=== PATIENT | female | born 1990 | race Caucasian/White ===

== ENCOUNTER 2016-07-09 18:50 | Observation (INO) ==
[2016-07-09] MEDS ORDERED: 0.9 % Sodium Chloride 1,000 ML IVC ONE (21:46)
[2016-07-09] MEDS ORDERED: Ondansetron 4 MG/2 ML VIAL IVP ONE (21:48)
--- NOTE | 2016-07-09 22:14 | Emergency Department Note ---
Disposition Clinical Impression: Dehydration, Hyperemesis arising during Disposition: Admitted As Inpatient Condition: Fair Referrals: NO,PCP [Primary Care Provider] - Forms: ED Satisfaction Letter General Adult HPI - General Chief complaint: ED Nausea/Vomiting/Diarrhea Stated complaint: N/V x 4 days Time Seen by Provider: 07/09/16 21:09 Source: EMS Limitations: no limitations Nursing Notes Reviewed: Yes Vital Signs Reviewed: Yes - History of Present Illness Pain Scale: 0 - Related Data Previous Rx's Medication Instructions Recorded Hydrocortisone Acetate [Anusol-Hc] 25 mg RC BID #28 supp.rect 02/13/15 HYDROcodone/Acet 5/325 mg [[place] 1 tab PO Q6H PRN #10 tab 01/08/16 5-325 mg] Cyclobenzaprine [Flexeril] 10 mg PO TID PRN #9 tablet 03/13/16 Nitrofurantoin (BID) [Macrobid] 100 mg PO BID #10 capsule 05/21/16 Allergies Allergy/AdvReac Type Severity Reaction Status Date / Time No Known Allergies Allergy Verified 01/08/16 11:43 Past Medical History - Past Medical History Medical history: Reports: no medical history, other Psychiatric history: Reports: bipolar, depression 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: : 3 Para: 2 - Social History Smoking Status: Current every day smoker Smokeless Tobacco Status: No Alcohol use: Reports: occasionally Drug use: Reports: none, marijuana Physical Exam - General Limitations: no limitations General appearance: alert, in no apparent distress Course Vital Signs Temperature 97.9 F 07/09/16 19:03 Pulse Rate 68 07/09/16 19:03 Respiratory Rate 16 07/09/16 19:03 Blood Pressure 152/93 07/09/16 19:03 O2 Sat by Pulse Oximetry 98 07/09/16 19:03 Temperature 97.9 F 07/09/16 19:03 Pulse Rate 56 07/10/16 00:19 Respiratory Rate 16 07/10/16 00:19 Blood Pressure 118/78 07/10/16 00:19 O2 Sat by Pulse Oximetry 100 07/10/16 00:19 Oxygen Delivery Oxygen Delivery Room Air Medical Decision Making - MDM Narrative Medical decision making narrative: I examined this patient and my medical decision-making was reviewed with the PARTS PULLER/PA/Advanced Practice Nurse/Resident Physician. I agree with the documented findings, disposition and treatment plan as described except to the extent set forth below. I evaluated this patient with Dr. Carney, I agree with his evaluation and management plan, supervised care the patient had stay. Patient comes in today complaining of nausea and vomiting and one on for almost 3 days she is about a month . She is . 2 miscarriages. Last one being in May. No abdominal pain no vaginal bleeding or discharge. No fevers. Assuming make her more comfortable with fluids and antiemetics check a urine and urine and then reassess. She is in agreement with this plan. 00 20 hours: Despite antiemetics and fluids patient still has episodes of vomiting no abdominal pain. Workup labs were negative and bring her into the hospital. Spoke with VEHICLE BODY SANDER and they are in agreement with the plan. - Lab Data Result diagrams: 07/09/16 23:18 07/09/16 23:18 Lab Results 07/09/16 07/09/16 07/09/16 Range/Units 23:18 23:18 23:57 WBC 13.5 H (4.3-11.1) K/mcL RBC 5.20 H (3.82-4.97) M/mcL Hgb 15.2 (11.5-15.4) g/dL Hct 46.0 H (35.3-44.9) % MCV 88.5 (83.0-100.0) fL MCH 29.2 (28.0-33.3) pg MCHC 33.0 (31.6-35.5) g/dL RDW 13.2 (11.5-14.5) % Plt Count 384 (140-400) K/mcL MPV 10.4 (9.4-12.4) fL Immature Gran % 0.6 (0-4) % Seg Neutrophils % 88.7 % Lymphocytes % 8.8 % Monocytes % 1.5 % Eosinophils % 0.1 % Basophils % 0.3 % Neutrophils # 12.0 H (1.6-8.9) K/mcL Lymphocytes # 1.2 (0.6-4.6) K/mcL Monocytes # 0.2 (0.0-1.3) K/mcL Eosinophils # 0.0 (0.0-0.6) K/mcL Basophils # 0.0 (0.0-0.2) K/mcL Immature Plt Fraction 6.4 H (1.1-6.1) % Sodium 139 (136-145) mEq/L Potassium 5.2 H (3.5-4.5) mEq/L Chloride 104 (98-109) mEq/L Carbon Dioxide 20 (19-29) mEq/L BUN 6 L (7-20) mg/dL Creatinine 0.75 (0.57-1.11) mg/dL Est GFR ( Amer) > 60 (> 60) Est GFR (Non-Af Amer) > 60 (> 60) BUN/Creatinine Ratio 8 (6-26) Glucose 123 H (70-99) mg/dL Calculated Osmolality 287 (280-300) Calcium 9.4 (8.6-10.8) mg/dL Total Bilirubin 0.4 (0.2-1.2) mg/dL AST 38 H (5-34) Units/L ALT 60 H (0-55) Units/L Alkaline Phosphatase 66 (38-126) Units/L Serum Total Protein 8.3 (6.0-8.3) g/dL Albumin 4.2 (3.5-5.0) g/dL Globulin 4.1 H (2.4-3.5) g/dL Albumin/Globulin Ratio 1.0 L (1.1-2.2) Beta HCG, Quant 53435 H (0-4) mIU/ml Urine Opiates Screen Negative (Eibvzq=243) ng/mL Ur Barbiturates Screen Negative (Clwdfw=293) ng/mL Ur Phencyclidine Scrn Negative (Cutoff=25) ng/mL Ur Amphetamines Screen Negative (Vpyhfm=4751) ng/mL U Benzodiazepines Scrn Negative (Pgqyqz=729) ng/mL Urine Cocaine Screen Negative (Cutoff= 300) ng/mL U Marijuana (THC) Screen Positive H (Cutoff = 50) ng/mL
[2016-07-09] MEDS ORDERED: Ondansetron 4 MG/2 ML VIAL IV ONE (22:41)
--- NOTE | 2016-07-09 22:47 | Emergency Department Note ---
Disposition Clinical Impression: Hyperemesis gravidarum Qualifiers: Weeks of gestation: less than 8 weeks Qualified Code(s): Z3A.01 - Less than 8 weeks gestation of Disposition: Admitted As Inpatient Condition: Fair Referrals: NO,PCP [Primary Care Provider] - Forms: ED Satisfaction Letter Time of Disposition: 00:37 General Adult HPI - General Chief complaint: ED Nausea/Vomiting/Diarrhea Stated complaint: N/V x 4 days Time Seen by Provider: 07/09/16 21:09 Source: EMS Limitations: no limitations Nursing Notes Reviewed: Yes Vital Signs Reviewed: Yes - History of Present Illness HPI Narrative: Patient is a 26-year-old female presents with 4 days of vomiting. Patient states she is 4 weeks . Patient states he tested positive on home test 2 weeks ago. Patient is a T2 L2. Patient states that she had hyperemesis gravidarum during one of her pregnancies and was admitted for treatment. Patient states she cannot keep anything down. Patient states her OB is Dr. Gonzales. Patient states she has a medical history for factor V Leiden, asthma and general anxiety disorder. Patient is not on any medications currently. Patient states she took Zofran at home. The patient does not have provider. Patient smokes half pack a day and denies alcohol use and denies illicit drug use. Pain Scale: 0 - Related Data Previous Rx's Medication Instructions Recorded Hydrocortisone Acetate [Anusol-Hc] 25 mg RC BID #28 supp.rect 02/13/15 HYDROcodone/Acet 5/325 mg [[place] 1 tab PO Q6H PRN #10 tab 01/08/16 5-325 mg] Cyclobenzaprine [Flexeril] 10 mg PO TID PRN #9 tablet 03/13/16 Nitrofurantoin (BID) [Macrobid] 100 mg PO BID #10 capsule 05/21/16 Allergies Allergy/AdvReac Type Severity Reaction Status Date / Time No Known Allergies Allergy Verified 01/08/16 11:43 All systems ED: reviewed and negative except as stated. 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 Awaiting patient to produce urine. Time: 23:10 Reevaluation #3: Administering 12.5 mg of Phenergan. Recommend admission to OB for the patient. Patient accepted. Time: 23:40 Additional Reevaluation(s): Patient still has nausea vomiting. Patient received Phenergan 10 minutes ago. Awaiting call back from OB - Consultations Consultation #1: Dr. Gonzalez accepted to [facility] Time: 00:22 Vital Signs Temperature 97.9 F 07/09/16 19:03 Pulse Rate 68 07/09/16 19:03 Respiratory Rate 16 07/09/16 19:03 Blood Pressure 152/93 07/09/16 19:03 O2 Sat by Pulse Oximetry 98 07/09/16 19:03 Temperature 97.9 F 07/09/16 19:03 Pulse Rate 68 07/09/16 19:03 Respiratory Rate 16 07/09/16 19:03 Blood Pressure 152/93 07/09/16 19:03 O2 Sat by Pulse Oximetry 98 07/09/16 19:03 Oxygen Delivery Oxygen Delivery Room Air Medical Decision Making - [facility] Narrative Medical decision making narrative: Ms. Diehl is a 26-year-old female presents with 4 days of vomiting. Patient states she is 4 weeks . Patient states he tested positive on home test 2 weeks ago. Patient is a T2 L2. Patient states that she had hyperemesis gravidarum during one of her pregnancies and was admitted for treatment. Patient states she cannot keep anything down. Patient states her OB is Dr. Gonzales. Patient states she has a medical history for factor V Leiden, asthma and general anxiety disorder. Patient is not on any medications currently. Patient states she took Zofran at home. The patient does not have provider. Patient smokes half pack a day and denies alcohol use and denies illicit drug use. Pt has no pain complaints, and is concerning for new and Hyperemesis gravidarum. Patient's blood pressure is elevated today at 152/93, but has no right upper quadrant tenderness or bilateral leg swelling or edema. Patient has no headache signs either or neck stiffness. Pt was started on Iv NS and zofran without resolution of nausea and vomiting. Zofran 8 mg was dosed with out any effect. 12.5 mg of Phenergan was then dosed without any effect as yet. Dr. Gonzalez OB was consulted and she accepted patient for admission. She requested pt to go to [facility].
[2016-07-09 23:27] LABS: Basophils % 0.3 %; Eosinophils % 0.1 %; Hemoglobin 15.2 g/dL (11.5-15.4); Immature Granulocytes % 0.6 % (0-4); Immature Platelets 6.4 % (1.1-6.1); Lymphocytes # 1.2 K/mcL (0.6-4.6); Lymphocytes % 8.8 %; Mean Corpuscular Hemoglobin 29.2 pg (28.0-33.3); Mean Corpuscular Volume 88.5 fL (83.0-100.0); Mean Platelet Volume 10.4 fL (9.4-12.4); Monocytes # 0.2 K/mcL (0.0-1.3); Monocytes % 1.5 %; Platelet Count 384 K/mcL (140-400); Red Cell Distribution Width 13.2 % (11.5-14.5); Segmented Neutrophils % 88.7 %
[2016-07-09 23:42] LABS: Alanine Aminotransferase 60 Units/L (0-55); Albumin 4.2 g/dL (3.5-5.0); Alkaline Phosphatase 66 Units/L (38-126); BUN/Creatinine Ratio 8 (6-26); Bilirubin,Total 0.4 mg/dL (0.2-1.2); Blood Urea Nitrogen 6 mg/dL (7-20); Calcium 9.4 mg/dL (8.6-10.8); Carbon Dioxide 20 mEq/L (19-29); Chloride 104 mEq/L (98-109); Globulin 4.1 g/dL (2.4-3.5); Glucose 123 mg/dL (70-99); Osmolality,Calculated 287 (280-300); Sodium 139 mEq/L (136-145); Total Protein 8.3 g/dL (6.0-8.3); eGFR For African Americans > 60 (> 60); eGFR For Non-African Americans > 60 (> 60)
[2016-07-09 23:43] LABS: Aspartate Amino Transferase 38 Units/L (5-34); Potassium 5.2 mEq/L (3.5-4.5)
[2016-07-09] MEDS ORDERED: *HR* Promethazine 25 MG/ML VIAL IVP PRN (23:55)
[2016-07-10 00:13] LABS: Amphetamine Screen,Urine Negative ng/mL (Cutoff=1000); Barbiturate Screen,Urine Negative ng/mL (Cutoff=200); Benzodiazepines Screen,Urine Negative ng/mL (Cutoff=200); Cannabinoid Screen,Urine Positive ng/mL (Cutoff = 50); Cocaine Screen,Urine Negative ng/mL (Cutoff= 300); Opiate Screen,Urine Negative ng/mL (Cutoff=300); Phencyclidine Screen,Urine Negative ng/mL (Cutoff=25)
[2016-07-10] MEDS: 0.9 % Sodium Chloride 1,000 ML IV SCH ×3 (00:13→11:28)
[2016-07-10 00:38] LABS: Bilirubin,Urine Negative (Negative); Blood,Urine Negative (Negative); Clarity,Urine Cloudy (Clear); Color,Urine Yellow (Yellow); Glucose,Urine (UA) Normal (Normal); Ketones,Urine >=160 mg/dL (Negative); Leukocyte Esterase,Urine Negative (Negative); Nitrite,Urine Negative (Negative); Protein,Urine 30 mg/dL (Neg-Trace); Specific Gravity,Urine 1.028 (1.010-1.025); Urobilinogen,Urine Normal (Normal)
[2016-07-10 00:40] LABS: Bacteria,Urine Few per hpf (None-Few); Mucus,Urine Many (Few); RBC,Urine 0-3 per hpf (0-3); Squamous Epithelial Cell,Urine Few per lpf (None-Few)
[2016-07-10 02:04] VITALS: BP 138/86
[2016-07-10] MEDS ORDERED: 0.9 % Sodium Chloride 1,000 ML IVC SCH (02:30)
--- NOTE | 2016-07-10 02:52 | OB/GYN History & Physical ---
Date of Encounter: 07/10/16 Time of Encounter: 02:50 Assessment and Plan (1) Nausea and vomiting during prior to 22 weeks gestation Current visit: Yes Status: Acute Patient reports 4 days of vomiting. She had zofran and phenergan in the ED and reports minimal relief. Labs largely within normal limits, no concern for dehydration. Mucous membranes moist. No abdominal tenderness on exam. 1. IV fluids until tolerating PO 2. Clear liquid diet, advance as tolerated 3. Diphenhydramine 25mg IV every 6 hours as needed for nausea/vomiting 4. Zofran 4mg ODT every 6 hours as needed for nausea/vomiting (2) Current visit: Yes Status: Acute Patient reports positive home test 2 weeks ago. Beta-HCG today 44, 359. She believes that she is approximately 4 weeks . She has not seen an OB yet but has an appointment with Dr. Gonzales on . Ultrasound in the morning Qualifiers: Weeks of gestation: less than 8 weeks Qualified Code(s): Z3A.01 - Less than 8 weeks gestation of (3) Elevated liver function tests Current visit: Yes Status: Acute Patient with elevated liver enzymes on labs today - AST 38, ALT 60. 1. Viral hepatitis panel History of Present Illness Chief complaint: Positive test with nausea and vomiting HPI: Ms. Diehl is a 26 year old female - [id number] who was admitted from the ED with nausea and vomiting. Patient reports a positive home test 2 weeks ago and believes she is about 4 weeks . She has a history of 2 miscarriages, including her last one in May 2016. Patient reports that she has been nausea and vomiting for the past 4 days. She states that she vomited "about 40 times" today. The only thing that makes it better is taking showers. Patient tried taking Zofran at home and reports no relief. Patient reports associated burning in her throat but denies abdominal pain, diarrhea or constipation. Patient denies headache, vision changes, chest pain, SOB, or vaginal discharge. She reports that she had nausea and vomiting requiring admission during her last . On exam, patient is awake and alert, in no acute distress. Vital signs within normal limits. Mucous membranes moist. Abdomen is soft, non-tender with no guarding or rebound. Labs largely within normal limits. Elevated liver enzymes. UDS + for marijuana. PMH of factor V leiden, asthma, depression and drug use. Patient was on subutex during last . PSH includes cholecystectomy. Patient reports smoking 1/2 ppd. She denies alcohol but reports marijuana use 3 days ago. Past Med Surg Social Fam HX - Past Medical History Medical history: no medical history, other Psychiatric history: bipolar, depression - Past Surgical History Surgical History: cholecystectomy - Social History Smoking Status: Current every day smoker Smokeless Tobacco Status: No Alcohol use: occasionally Drug use: none, marijuana Obstetrical History - Pregnancies : 5 Para: 2 Term: 2 : 0 Ab's: 2 Livin Medications and Allergies Hydrocortisone Acetate [Anusol-Hc] 25 mg RC BID #28 supp.rect 02/13/15 [Rx] HYDROcodone/Acet 5/325 mg [[place] 5-325 mg] 1 tab PO Q6H PRN #10 tab 01/08/16 [Rx ] Cyclobenzaprine [Flexeril] 10 mg PO TID PRN #9 tablet 03/13/16 [Rx] Nitrofurantoin (BID) [Macrobid] 100 mg PO BID #10 capsule 05/21/16 [Rx] Allergies No Known Allergies Allergy (Verified 01/08/16 11:43) Review of System OB - Constitutional Constitutional ROS IM: no chills, no fever(s), no weight loss - Cardiovascular Cardiovascular: no chest pain, no lightheadedness, no palpitations, no syncope - Respiratory Respiratory: no cough, no dyspnea, no wheezing - Gastrointestinal Gastrointestinal: nausea, vomiting, no abdominal pain, no change in bowel habits , no change in stool character, no constipation, no diarrhea - Genitourinary Genitourinary: no dysuria, no urinary frequency, no urinary urgency, no vaginal discharge, no vaginal odor - Neurological Nerological: no headache(s), no loss of vision, no syncope Exam - Vital Signs Vital signs: Initial Vital Signs Temp Pulse Resp BP Pulse Ox 97.9 F 68 16 152/93 98 07/09/16 19:03 07/09/16 19:03 07/09/16 19:03 07/09/16 19:03 07/09/16 19:03 - Constitutional Constitutional: well developed, well nourished, no acute distress, average body habitus - HEENT HEENT: Normocephaly, Mucus Membranes Moist - Abdomen Abdomen: Present: bowel sounds normal, non tender. Absent: guarding noted - Extremities Extremities exam: normal inspection Results Result Diagrams: 07/09/16 23:18 07/09/16 23:18 Abnormal lab results WBC 13.5 K/mcL (4.3-11.1) H 07/09/16 23:18 RBC 5.20 M/mcL (3.82-4.97) H 07/09/16 23:18 Hct 46.0 % (35.3-44.9) H 07/09/16 23:18 Neutrophils # 12.0 K/mcL (1.6-8.9) H 07/09/16 23:18 Immature Plt Fraction 6.4 % (1.1-6.1) H 07/09/16 23:18 Potassium 5.2 mEq/L (3.5-4.5) H 07/09/16 23:18 BUN 6 mg/dL (7-20) L 07/09/16 23:18 Glucose 123 mg/dL (70-99) H 07/09/16 23:18 AST 38 Units/L (5-34) H 07/09/16 23:18 ALT 60 Units/L (0-55) H 07/09/16 23:18 Globulin 4.1 g/dL (2.4-3.5) H 07/09/16 23:18 Albumin/Globulin Ratio 1.0 (1.1-2.2) L 07/09/16 23:18 Beta HCG, Quant 75178 mIU/ml (0-4) H 07/09/16 23:18 Ur Specimen Adequacy See below A 07/09/16 23:57 Urine Clarity Cloudy (Clear) A 07/09/16 23:57 Ur Specific [place] 1.028 (1.010-1.025) H 07/09/16 23:57 Urine Protein 30 mg/dL (Neg-Trace) H 07/09/16 23:57 Urine Ketones >=160 mg/dL (Negative) H 07/09/16 23:57 Urine Mucus Many (Few) H 07/09/16 23:57 Urine Test Positive (Negative) A 07/09/16 23:57 U Marijuana (THC) Screen Positive ng/mL (Cutoff = 50) H 07/09/16 23:57 All other labs normal.
[2016-07-10] MEDS: Ondansetron ODT 4 MG TAB.RAPDIS SL PRN ×2 (06:09→13:08)
[2016-07-10 06:16] LABS: Hepatitis A Antibody IgM Nonreactive (Nonreactive); Hepatitis B Core IgM Nonreactive (Nonreactive); Hepatitis B Surface Antigen Nonreactive (Nonreactive)
[2016-07-10 06:20] LABS: Hepatitis C Virus Antibody Reactive (Nonreactive)
[2016-07-10] MEDS ORDERED: BENZOCAINE/MENTHOL 1 LOZENGE (BAG OF 6) MM PRN (16:05)
--- NOTE | 2016-07-10 16:37 | Discharge Summary ---
Date of Encounter: 07/10/16 Time of Encounter: 16:35 - Discharge Diagnosis (1) Hepatitis C Priority: Secondary Status: Acute Comments: Pt to follow-up with PCP. Qualifiers: Viral hepatitis chronicity: unspecified Hepatic coma status: without hepatic coma Qualified Code(s): B19.20 - Unspecified viral hepatitis C without hepatic coma (2) Hyperemesis arising during Priority: Primary Status: Acute Comments: Pt now tolerating clear liquids. Risk of cardiac defects with zofran in the first trimester discussed. Pt verbalizes understanding. She desires to take zofran to control her nausea and vomiting at this time. - Discharge Medications Prescriptions: Ondansetron ODT [Zofran ODT] 4 mg SL Q6HR PRN #30 tab.rapdis PRN Reason: Nausea And Vomiting Home Medications: Hydrocortisone Acetate [Anusol-Hc] 25 mg RC BID #28 supp.rect 02/13/15 [Rx] Nitrofurantoin (BID) [Macrobid] 100 mg PO BID #10 capsule 05/21/16 [Rx] Benzocaine/Menthol [Chloraseptic Sore Throat Lozng] 1 lozenge MM Q2HR PRN #0 box 07/10/16 [Rx] DiphenhydraMINE [Benadryl] 25 mg IVP Q6HR PRN #0 vial 07/10/16 [Rx] Ondansetron ODT [Zofran ODT] 4 mg SL Q6HR PRN #30 tab.rapdis 07/10/16 [Rx] Allergies/Adverse Reactions: Allergies No Known Allergies Allergy (Verified 01/08/16 11:43) Data Procedures and tests throughout hospitalization: Laboratory Tests 07/10/16 03:59 Hepatitis A IgM Ab Nonreactive Hep Bs Antigen Nonreactive Hep B Core IgM Ab Nonreactive Hepatitis C Ab Screen Reactive H Labs on day of discharge: Labs from last 24 hours 07/10/16 03:59 Hepatitis A IgM Ab Nonreactive Hep Bs Antigen Nonreactive Hep B Core IgM Ab Nonreactive Hepatitis C Ab Screen Reactive H - Impressions ITS Impressions Obstetrics Ultrasound 07/10/16 09:00 IMPRESSION: 1. Single live intrauterine with an estimated gestational age of 6 weeks 2 days based upon this examination (estimated due date 03/03/2017). 2. 0.8 cm x 1.2 cm x 0.4 cm subchorionic hemorrhage along the right side of the gestational sac. Additional heterogeneous fluid collection near the internal cervical os measures approximately 1.2 cm x 1.8 cm x 1.2 cm, potentially extension of subchorionic hemorrhage versus free hemorrhage. 3. Normal grayscale appearance of the ovaries. D/ / Lucius Quinn MD / Lucius Quinn MD Interpreting Provider: Lucius Quinn MD Date of admission: 07/10/16 00:36 Primary care physician: PCP NEYDA Discharging clinician: Yudi QuintanillaUpton) Anticipated date of discharge: 07/10/16 - Patient Status Disposition: Home, Self-Care Condition: Fair Functional capacity at discharge: independent ambulation Overall status at discharge: patient is progressing back to baseline - Discharge Instructions Follow Up With: NEYDA,PCP [Primary Care Provider] - Ha Gonzales MD [Partnered Physician] - - Diet and Activity Activity: increase activity as tolerated Diet: advance to your usual diet Hospital Course 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 Diehl is a 26 year old female who was admitted from the ED with nausea and vomiting. Patient reports a positive home test 2 weeks ago and believes she is about 4 weeks . She has a history of 2 miscarriages, including her last one in May 2016. Patient reports that she has been nausea and vomiting for the past 4 days. She states that she vomited "about 40 times" on day of admission. The only thing that makes it better is taking showers. Patient tried taking Zofran at home and reports no relief. Patient reports associated burning in her throat but denies abdominal pain, diarrhea or constipation. Patient denies headache, vision changes, chest pain, SOB, or vaginal discharge. She reports that she had nausea and vomiting requiring admission during her last . PMH of factor V leiden, asthma, depression and drug use. Patient was on subutex during last . PSH includes cholecystectomy. Patient reports smoking 1/2 ppd. She denies alcohol but reports marijuana use 3 days ago. IUP confirmed via ultrasound while inpatient. Her nausea was well controlled while inpatient with zofran. She received fluid bolus as well and is tolerating clear liquids prior to discharge. Pt to follow-up within the week with primary OB. Time Attestation: Total time spent providing and/or coordinating discharge services: Time Spent: Less than 30 minutes Exam - Constitutional Vitals: Temp Pulse Resp BP Pulse Ox 97.5 F L 60 18 138/86 98 07/10/16 02:00 07/10/16 02:15 07/10/16 02:15 07/10/16 02:00 07/10/16 02:00 General appearance IM: A&O X 3, pleasant, no acute distress - Respiratory Respiratory exam: Present: CTAB - Cardiovascular Cardiovascular exam IM: Present: RRR, +S1, +S2 - GI/Abdominal GI/Abdominal exam IM: soft, no peritoneal signs - Extremities Exam Extremities exam IM: Present: normal inspection - Neurological Exam Neurological exam: normal gait, oriented X3 - VTE Reasons for not Prescribing Prophylaxis: Treatment not Indicated - Low risk for VTE Documentation of Mechanical Device: Intermittent pneumatic compression device
[2016-07-10] MEDS ORDERED: FLU VACC QS2016-17 36MOS UP/PF 0.5 ML SYRINGE IM ONE (17:03)
== END 2016-07-10 18:05 | disposition home or self-care (01) ==
LOC: EMEROO 18:50 → 1NENUOBS 18:50
PROVIDERS: ADMIT Obstetrics & Gynecology; ATTEND Obstetrics & Gynecology

== ENCOUNTER → 2017-01-22 19:45 | Observation (INO) ==
--- NOTE | 2017-01-22 17:36 | OB/GYN Progress Note ---
Date of Encounter: 01/22/17 Time of Encounter: 17:34 - Assessment and Plan (1) Nausea and vomiting during Current Visit: Yes Status: Acute zofran ODT. Pt had one additional episode of emesis after the zofran. Plan was for IV fluids but pt is now declining and states she just wants to go home. Discharge home with precautions. (2) 35 weeks gestation of Current Visit: Yes Status: Acute (3) Drug use affecting in third trimester Current Visit: Yes Status: Acute (4) Opioid dependence, uncomplicated Current Visit: Yes Status: Acute (5) Smoking (tobacco) complicating , third trimester Current Visit: Yes Status: Acute (6) Nicotine dependence Current Visit: Yes Status: Acute Qualifiers: Nicotine product type: cigarettes Substance use status: uncomplicated Qualified Code(s): F17.210 - Nicotine dependence, cigarettes, uncomplicated Subjective - Subjective Principal diagnosis: nausea/vomiting Interval history: Kristine Diehl is a 26 yo female at 35.0 weeks gestation who presents with nausea and vomiting that started around 4 AM this morning. She states that she has been unable to keep anything down today. Her has been complicated by nausea and vomiting earlier in . She has a past medical history of factor V [place]. Denies vaginal bleeding, loss of fluid, dizziness, headache, blurred vision. Reports good movement. No treatments prior to arrival. Antepartum ROS: movement normal, no loss of fluid, no vaginal bleeding, no contractions Objective - Exam FHR: other (reactive) Auscultation: bilateral: normal Abdomen: Present: normal appearance, soft, gravid
[2017-01-22 18:30] LABS: Bilirubin,Urine Small (Negative); Blood,Urine Negative (Negative); Clarity,Urine Cloudy (Clear); Color,Urine Dark Yellow (Yellow); Glucose,Urine (UA) Normal (Normal); Ketones,Urine 80 mg/dL (Negative); Leukocyte Esterase,Urine Small (Negative); Nitrite,Urine Negative (Negative); Protein,Urine 30 mg/dL (Neg-Trace); Specific Gravity,Urine > 1.030 (1.010-1.025); Urobilinogen,Urine Normal (Normal)
[2017-01-22 18:32] LABS: Bacteria,Urine Moderate per hpf (None-Few); Hyaline Casts,Urine Few per lpf (None-Few); RBC,Urine 0-3 per hpf (0-3); Squamous Epithelial Cell,Urine Many per lpf (None-Few); WBC,Urine 15-30 per hpf (0-3)
[2017-01-22 18:50] LABS: Mucus,Urine Few (Few)
[2017-01-22 19:15] LABS: Amphetamine Screen,Urine Negative ng/mL (Cutoff=1000); Barbiturate Screen,Urine Negative ng/mL (Cutoff=200); Benzodiazepines Screen,Urine Negative ng/mL (Cutoff=200); Cannabinoid Screen,Urine Positive ng/mL (Cutoff = 50); Cocaine Screen,Urine Negative ng/mL (Cutoff= 300); Opiate Screen,Urine Negative ng/mL (Cutoff=300); Phencyclidine Screen,Urine Negative ng/mL (Cutoff=25)
[~2017-01-22 19:45] MED LIST: Ondansetron ODT 4 MG TAB.RAPDIS SL ONE; Ringers Solution, Lactated 1,000 ML IVC ONE
== END | disposition home or self-care (01) ==
LOC: 1NENULAB
PROVIDERS: ADMIT Student in an Organized Health Care Education/Training Program; ATTEND Student in an Organized Health Care Education/Training Program

== ENCOUNTER 2017-02-19 08:00 | Inpatient (IN) ==
[2017-02-19] MEDS ORDERED: Famotidine 20 MG/2 ML VIAL IVP PRN (08:38)
[2017-02-19] MEDS ORDERED: Ondansetron 4 MG/2 ML VIAL IVP PRN (08:38)
[2017-02-19 09:37] LABS: Basophils % 0.3 %; Eosinophils # 0.1 K/mcL (0.0-0.6); Eosinophils % 0.7 %; Hematocrit 35.6 % (35.3-44.9); Hemoglobin 11.3 g/dL (11.5-15.4); Immature Granulocytes % 0.6 % (0-4); Immature Platelets 12.3 % (1.1-6.1); Lymphocytes # 2.5 K/mcL (0.6-4.6); Lymphocytes % 25.5 %; Mean Corpuscular HGB Conc 31.7 g/dL (31.6-35.5); Mean Corpuscular Hemoglobin 27.1 pg (28.0-33.3); Mean Corpuscular Volume 85.4 fL (83.0-100.0); Mean Platelet Volume 12.2 fL (9.4-12.4); Monocytes # 0.5 K/mcL (0.0-1.3); Monocytes % 5.2 %; Neutrophils # 6.7 K/mcL (1.6-8.9); Platelet Count 300 K/mcL (140-400); Red Blood Count 4.17 M/mcL (3.82-4.97); Red Cell Distribution Width 13.6 % (11.5-14.5); Segmented Neutrophils % 67.7 %
[2017-02-19] MEDS ORDERED: miSOPROStol 100 MCG TABLET PO STA (09:44)
[2017-02-19] MEDS ORDERED: Oxytocin 20 units/ LR 1000 mL 20 UNIT/1,000 ML BAG IVC SCH ×2 (09:45→20:30)
[2017-02-19 10:12] LABS: Amphetamine Screen,Urine Negative ng/mL (Cutoff=1000); Barbiturate Screen,Urine Negative ng/mL (Cutoff=200); Benzodiazepines Screen,Urine Negative ng/mL (Cutoff=200); Cannabinoid Screen,Urine Positive ng/mL (Cutoff = 50); Cocaine Screen,Urine Negative ng/mL (Cutoff= 300); Opiate Screen,Urine Negative ng/mL (Cutoff=300); Phencyclidine Screen,Urine Negative ng/mL (Cutoff=25)
[2017-02-19] MEDS ORDERED: *HR* Buprenorphine HCl 8 MG TAB.SUBL SL SCH (11:00)
--- NOTE | 2017-02-19 12:05 | OB/GYN History & Physical ---
Date of Encounter: 02/19/17 Time of Encounter: 11:53 Assessment and Plan (1) 39 weeks gestation of Current visit: Yes Status: Acute Admit to labor and delivery for induction of labor with Dr. Gonzales. Monitor FHTs, tocometry. Cytotec induction. Epidural if desired. Anticipate vaginal delivery. (2) Factor V Leiden mutation Current visit: No Status: Chronic Pt asymptomatic, no history of clots, evaluation has not demonstrated Factor V Leiden complication. FHT moderate variability, reassuring. Will continue to monitor. History of Present Illness Chief complaint: Induction of Labor HPI: Ms. Diehl is a 26 year old female, , 39+0, presenting to labor and delivery for induction of labor with Dr. Gonzales. 02/04/17 NST non-reactive; BPP 01/06. complicated by IUGR. Pt taking subutex. Pt reports Kizzy is moving well, reports no LOF/SROM, does not feel contractions yet. Labs: GBS negative. Rubella immune, VZV non-immune. Blood type O positive. Past Med Surg Social Fam HX - Past Medical History Medical history: no medical history, asthma, other Psychiatric history: bipolar, depression - Past Surgical History Surgical History: cholecystectomy, knee replacement - Social History Smoking Status: Current every day smoker Smokeless Tobacco Status: No Alcohol use: occasionally Drug use: none, marijuana Medications and Allergies Famotidine [Pepcid] 20 mg PO BID #60 tablet 07/10/16 [Rx] Metoclopramide [Reglan] 10 mg PO Q6HR PRN #20 tablet 07/16/16 [Rx] Buprenorphine HCl [Subutex] 8 mg SL BID 01/22/17 [History] Vit Calc,Iron,Folic [ Vitamins] 1 tab PO DAILY 02/19/17 [ History] 3 Allergy/AdvReac Type Severity Reaction Status Date / Time No Known Allergies Allergy Verified 09/03/16 13:00 Review of System OB - Constitutional Constitutional ROS IM: no chills, no lethargy - Eyes Eyes: bilateral: blurred vision - Nose, mouth, and throat Nose, mouth and throat: no neck pain - Cardiovascular Cardiovascular: no chest pain - Respiratory Respiratory: no dyspnea Exam - Constitutional Constitutional: well developed, well nourished, no acute distress - HEENT HEENT: Normocephaly, Mucus Membranes Moist - Neck Neck exam: full ROM - Lungs Respiratory exam: CTAB - Cardiovascular Cardiovascular exam: +S1, +S2 - Abdomen Abdomen: Present: bowel sounds normal. Absent: diffuse tenderness - Cervix Dilation: 3 Effacement: 80 Results Result Diagrams: 02/19/17 09:08 Abnormal lab results Hgb 11.3 g/dL (11.5-15.4) L 02/19/17 09:08 MCH 27.1 pg (28.0-33.3) L 02/19/17 09:08 Immature Plt Fraction 12.3 % (1.1-6.1) H 02/19/17 09:08 U Marijuana (THC) Screen Positive ng/mL (Cutoff = 50) H 02/19/17 09:08 All other labs normal. - VTE Reasons for not Prescribing Prophylaxis: Treatment not Indicated - Low risk for VTE
[2017-02-19 13:32] LABS: Alanine Aminotransferase 25 Units/L (0-55); Aspartate Amino Transferase 19 Units/L (5-34); BUN/Creatinine Ratio 17 (6-26); Blood Urea Nitrogen 11 mg/dL (7-20); Lactate Dehydrogenase 176 Units/L (159-327); Uric Acid 5.2 mg/dL (2.6-6.0); eGFR For African Americans > 60 (> 60); eGFR For Non-African Americans > 60 (> 60)
--- NOTE | 2017-02-19 14:38 | OB Labor Progress Note ---
Date of Encounter: 02/19/17 Time of Encounter: 14:36 Labor Progress Note - Subjective Subjective: Pt reports pain 4/10 with contractions. - Cervix Cervix: 4-5/80/-1 - Heart Tones Heart Tones: Category I - Kirk Kirk: irregular - Interventions Interventions: AROM for large amount clear fluid. IUPC and FSE placed. - Plan Plan: Continue to monitor. WIll augment with pitocin if needed. Anticipate .
[2017-02-19] MEDS ORDERED: *HR* FentaNYL (PF) 100 MCG/2 ML VIAL EP ONE (15:29)
[2017-02-19] MEDS ORDERED: Bupivacaine-MPF 0.25% 10 ML VIAL EP ONE (15:29)
[2017-02-19] MEDS ORDERED: Epidural Premix (fent/bupiv) 110 ML EP SCH (15:30)
[2017-02-19] MEDS: Ringers Solution, Lactated 1,000 ML IVC SCH ×2 (15:30→16:49)
[2017-02-19] MEDS ORDERED: Epidural Premix (fent/bupiv) 110 ML EP ONE (15:33)
[2017-02-19] MEDS ORDERED: Bupivacaine-MPF 0.25% 10 ML VIAL ONE (15:33)
[2017-02-19] MEDS ORDERED: *HR* FentaNYL (PF) 100 MCG/2 ML VIAL ONE (15:34)
--- NOTE | 2017-02-19 15:43 | Anesthesia Evaluation PreOp ---
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 Any Significant HX Other Medical History: Denies Any Significant HX Anesthesia History: No Prior Anesthetic Complications, Past Anesthesia : Yes (term) Alcohol Use: occasionally Drug use: none, marijuana Medications and Allergies Famotidine [Pepcid] 20 mg PO BID #60 tablet 07/10/16 [Rx] Metoclopramide [Reglan] 10 mg PO Q6HR PRN #20 tablet 07/16/16 [Rx] Buprenorphine HCl [Subutex] 8 mg SL BID 01/22/17 [History] Vit Calc,Iron,Folic [ Vitamins] 1 tab PO DAILY 02/19/17 [ History] 3 Allergy/AdvReac Type Severity Reaction Status Date / Time No Known Allergies Allergy Verified 09/03/16 13:00 Anesthesia Results - Labs 02/19/17 09:08 02/19/17 13:00 Anesthesia Exam - HOME PERFORMANCE LABORER LOC: Oriented HOME PERFORMANCE LABORER Motor: Normal RUE, Normal LUE, Normal RLE, Normal LLE, Normal Face HOME PERFORMANCE LABORER Sensory: Normal: RUE, LUE, RLE, LLE, Face - Pulmonary Breath Sounds: bilateral Clear Respiratory Effort: Symmetrical Anesthesia Assess/Plan ASA Score: 2 Modified Elias Scale for Level of Consciousness: Cooperative, oriented, and tranquil Anesthetic Plan: Regional Monitoring Plan: Standard Monitors Recovery Plan: PACU
--- NOTE | 2017-02-19 16:21 | Anesthesia Evaluation PreOp ---
Date of Encounter: 02/19/17 Time of Encounter: 15:31 - Past History Planned Operation: labor epidural Cardiac History: Denies any Significant Hx Pulmonary History: Smoker (1 1/2 to 2 ppd for 16 years), Asthma (denies recent attacks. 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 Previous epidurals X2 without complications. Denies any family history of anesthetic problems.) : Yes Alcohol Use: occasionally Drug use: none, marijuana Medications and Allergies Famotidine [Pepcid] 20 mg PO BID #60 tablet 07/10/16 [Rx] Metoclopramide [Reglan] 10 mg PO Q6HR PRN #20 tablet 07/16/16 [Rx] Buprenorphine HCl [Subutex] 8 mg SL BID 01/22/17 [History] Vit Calc,Iron,Folic [ Vitamins] 1 tab PO DAILY 02/19/17 [ History] 3 Allergy/AdvReac Type Severity Reaction Status Date / Time No Known Allergies Allergy Verified 09/03/16 13:00 - Meds/Allergy Pre-op Review Medications Reviewed: Yes Allergies Reviewed: Yes Beta Blockers on Current Med List: No Anesthesia Results - Labs 02/19/17 09:08 02/19/17 13:00 Anesthesia Exam 141/98, 76. FHTs 120s Height: 5'3" Weight: 81 kg NPO (# of Hours): 5 hours Pain Scale: 6 Pain Scale Used: Numeric (1 - 10) - HEENT Pupil (Motor): Pupils equal, EOMI Mallampati: III Teeth: Poor dentition (chip upper left front) Oral Opening: Greater than 3 - SEPTIC TECHNICIAN LOC: Oriented SEPTIC TECHNICIAN Motor: Normal RUE, Normal LUE, Normal RLE, Normal LLE, Normal Face SEPTIC TECHNICIAN Sensory: Normal: RUE, LUE, RLE, LLE, Face - Cardiac Rhythm: Regular - Pulmonary Breath Sounds: bilateral Clear Respiratory Effort: Symmetrical Anesthesia Assess/Plan ASA Score: 3 Modified Elias Scale for Level of Consciousness: Cooperative, oriented, and tranquil Anesthetic Plan: Regional Autologous Blood: No Monitoring Plan: Standard Monitors
--- NOTE | 2017-02-19 16:27 | Anesthesia Procedures ---
Date of Encounter: 02/19/17 Time of Encounter: 15:42 Procedures: Anesthesia - Epidural/Spinal Patient ID/Chart reviewed: Yes Patient examined: Yes OB Eval: Gestational age: 39 OB Eval: : 5 OB Eval: Hx Para: 2 OB Eval: Dilated at (cm): 6 OB Eval: Contractions: Non-stressed pattern Consent Obtained: Yes Supplemental Oxygen: None/Room Air Site Prep: Aseptic Technique, Sterile prep and drape, Povidone-Iodine 1% Patient position: upright Local Anesthetic: Lidocaine 1% Amount of Local Anesthetic used: 3 Touhy Needle Gauge: 18 Touhy Needle Depth (cm): 5 Catheter Depth at Skin (cm): 16 Test Dose (1.5% Lido + Epi): Volume given (mls): 3 Test Dose Result: Negative Loading Dose: 0.25% Marcaine (mls): 8 Loading Dose: Fentanyl (mcg): 100 Loading Dose Administered: Thru Catheter Infusion Med: 0.125% Bupivacaine w/ 2 mcg/ml Fentanyl Infusion Rate (mls/hr): [address]: Tegaderm, Tape Interspace Used: L3-L4 Loss of Resistance (ARIS): Yes Blood: No CSF: No Paresthesia: No Vitals + FHT's: 3 Vital Signs Time 1542 1600 1605 1610 1615 BP 133/94 150/79 130/71 132/72 132/75 Pulse 78 76 63 67 66 FHTs 120 120 120 120 120
[2017-02-19] MEDS ORDERED: 0.9 % Sodium Chloride 1,000 ML ONE (17:52)
--- NOTE | 2017-02-19 18:06 | OB Labor Progress Note ---
Date of Encounter: 02/19/17 Time of Encounter: 18:04 Labor Progress Note - Subjective Subjective: Pt comfortable with epidural. - Cervix Cervix: 8/100/-1 - Heart Tones Heart Tones: Category II- variable decelerations noted. Dr. Gonzales has viewed tracing. Amnioinfusion ordered. - Interventions Interventions: New IUPC placed. Amnioinfusion started. - Plan Plan: Continue to monitor. Anticipate .
[2017-02-19] MEDS ORDERED: Oxytocin 20 units/ LR 1000 mL 20 UNIT/1,000 ML BAG IVC ONE (19:06)
--- NOTE | 2017-02-19 20:23 | OB/GYN Procedure Note ---
Delivery - Delivery Date: 02/19/17 Provider: Ha Gonzales Intrapartum events: none Delivery induction: AROM, misoprostol Delivery augmentation: rupture of membranes Estimated Blood Loss: 150 - (s) A Infant Delivery Date: 02/19/17 Infant Delivery Time: 19:03 Presentation: vertex Position: OA Gender: Female Viability: Viable Weight Gram: 2.81 kg at 1 minute: 8 at 5 mins: 9 Shoulder Dystocia: not encountered Specimens collected: cord blood Placenta: spontaneous Cord: nuchal cord - Repair Laceration Description: Perineal - 1st Degree - Complications Delivery complications: none - Disposition Mom disposition: stable in LDR [place] disposition: stable in LDR - Comments Comments: 26 y/o now delivered a viable female weight 6lbs 3oz (2810g), APGARs 8/9 @ 1903hrs, placenta delivered @ 1907hrs, EBL 150cc. Nuchal cord x 1 reduced easily, delivered JOSHUA, 1st degree laceration repaired with 4-0 vicryl, mother and doing very well.
[2017-02-19] MEDS ORDERED: Measles/Mumps/Rubella Vacc 0.5 ML VIAL SQ PRN (20:24)
[2017-02-19] MEDS: Ibuprofen 600 MG TABLET PO PRN (22:29)
[2017-02-19] MEDS: *HR* Buprenorphine HCl 2 MG SUBLINGUAL TABLET SL SCH (23:50)
[2017-02-20] MEDS ORDERED: Lanolin 7 G OINT...G. TP PRN (02:06)
[2017-02-20 06:19] LABS: Basophils % 0.2 %; Eosinophils # 0.1 K/mcL (0.0-0.6); Eosinophils % 0.9 %; Hematocrit 31.7 % (35.3-44.9); Hemoglobin 10.1 g/dL (11.5-15.4); Immature Granulocytes % 1.1 % (0-4); Lymphocytes # 2.9 K/mcL (0.6-4.6); Lymphocytes % 31.4 %; Mean Corpuscular HGB Conc 31.9 g/dL (31.6-35.5); Mean Corpuscular Hemoglobin 27.1 pg (28.0-33.3); Mean Platelet Volume 12.2 fL (9.4-12.4); Monocytes # 0.4 K/mcL (0.0-1.3); Monocytes % 4.6 %; Neutrophils # 5.8 K/mcL (1.6-8.9); Platelet Count 234 K/mcL (140-400); Red Blood Count 3.73 M/mcL (3.82-4.97); Red Cell Distribution Width 13.6 % (11.5-14.5); Segmented Neutrophils % 61.8 %
[2017-02-20] MEDS ORDERED: Benzocaine/Menthol 56 GM AEROSOL SPRAY TP PRN (08:29)
--- NOTE | 2017-02-20 08:34 | Discharge Summary ---
Date of Encounter: 02/20/17 Time of Encounter: 08:30 - Discharge Diagnosis (1) Vaginal delivery Priority: Primary Status: Acute Comments: Doing well s/p vaginal delivery Pain is well controlled; back is feeling "achy" from epidural. Lochia is light and without clots is going well; patient has a pump of her own already. VSS Discharge to guest today - is a 5 day hold. (2) Nicotine dependence Priority: Secondary Status: Acute Comments: Encouraged decreasing amount of cigarettes used per day to the point of quitting. Qualifiers: Nicotine product type: cigarettes Substance use status: uncomplicated Qualified Code(s): F17.210 - Nicotine dependence, cigarettes, uncomplicated (3) Opioid dependence, uncomplicated Priority: Secondary Status: Acute Comments: Patient to supply own subutex from group Rx after discharged to guest Patient to continue with group. - Discharge Medications Prescriptions: Ibuprofen [Motrin] 600 mg PO Q6HR PRN #30 tablet PRN Reason: Cramping Docusate [Colace] 100 mg PO BID PRN #20 capsule PRN Reason: Constipation Ferrous Sulfate 325 mg PO DAILY #30 tablet Home Medications: Vit Calc,Iron,Folic [ Vitamins] 1 tab PO DAILY 02/19/17 [ History] Benzocaine/Menthol Ellerbe [Dermoplast Ellerbe] 1 appl TP QID PRN aerosol 02/20/17 [Rx] Buprenorphine HCl [Subutex] 8 mg SL BID tab.subl 02/20/17 [Rx] Docusate [Colace] 100 mg PO BID PRN #20 capsule 02/20/17 [Rx] Ferrous Sulfate 325 mg PO DAILY #30 tablet 02/20/17 [Rx] Ibuprofen [Motrin] 600 mg PO Q6HR PRN #30 tablet 02/20/17 [Rx] Lanolin [Lansinoh] 1 appl TP TID PRN oint...g. 02/20/17 [Rx] Allergies/Adverse Reactions: 3 Allergy/AdvReac Type Severity Reaction Status Date / Time No Known Allergies Allergy Verified 09/03/16 13:00 Data Procedures and tests throughout hospitalization: Laboratory Tests 02/19/17 02/19/17 02/19/17 09:08 09:08 13:00 WBC 9.9 RBC 4.17 Hgb 11.3 L Hct 35.6 MCV 85.4 MCH 27.1 L MCHC 31.7 RDW 13.6 Plt Count 300 MPV 12.2 Immature Gran % 0.6 Seg Neutrophils % 67.7 Lymphocytes % 25.5 Monocytes % 5.2 Eosinophils % 0.7 Basophils % 0.3 Neutrophils # 6.7 Lymphocytes # 2.5 Monocytes # 0.5 Eosinophils # 0.1 Basophils # 0.0 Immature Plt Fraction 12.3 H BUN 11 Creatinine 0.66 Est GFR ( Amer) > 60 Est GFR (Non-Af Amer) > 60 BUN/Creatinine Ratio 17 Uric Acid 5.2 AST 19 ALT 25 Lactate Dehydrogenase 176 Urine Opiates Screen Negative Ur Barbiturates Screen Negative Ur Phencyclidine Scrn Negative Ur Amphetamines Screen Negative U Benzodiazepines Scrn Negative Urine Cocaine Screen Negative U Marijuana (THC) Screen Positive H 02/20/17 06:12 WBC 9.4 RBC 3.73 L Hgb 10.1 L Hct 31.7 L MCV 85.0 MCH 27.1 L MCHC 31.9 RDW 13.6 Plt Count 234 MPV 12.2 Immature Gran % 1.1 Seg Neutrophils % 61.8 Lymphocytes % 31.4 Monocytes % 4.6 Eosinophils % 0.9 Basophils % 0.2 Neutrophils # 5.8 Lymphocytes # 2.9 Monocytes # 0.4 Eosinophils # 0.1 Basophils # 0.0 Immature Plt Fraction BUN Creatinine Est GFR ( Amer) Est GFR (Non-Af Amer) BUN/Creatinine Ratio Uric Acid AST ALT Lactate Dehydrogenase Urine Opiates Screen Ur Barbiturates Screen Ur Phencyclidine Scrn Ur Amphetamines Screen U Benzodiazepines Scrn Urine Cocaine Screen U Marijuana (THC) Screen Labs on day of discharge: Labs from last 24 hours 02/20/17 02/19/17 02/19/17 06:12 13:00 09:08 WBC 9.4 RBC 3.73 L Hgb 10.1 L Hct 31.7 L MCV 85.0 MCH 27.1 L MCHC 31.9 RDW 13.6 Plt Count 234 MPV 12.2 Immature Gran % 1.1 Seg Neutrophils % 61.8 Lymphocytes % 31.4 Monocytes % 4.6 Eosinophils % 0.9 Basophils % 0.2 Neutrophils # 5.8 Lymphocytes # 2.9 Monocytes # 0.4 Eosinophils # 0.1 Basophils # 0.0 Immature Plt Fraction BUN 11 Creatinine 0.66 Est GFR ( Amer) > 60 Est GFR (Non-Af Amer) > 60 BUN/Creatinine Ratio 17 Uric Acid 5.2 AST 19 ALT 25 Lactate Dehydrogenase 176 Urine Opiates Screen Negative Ur Barbiturates Screen Negative Ur Phencyclidine Scrn Negative Ur Amphetamines Screen Negative U Benzodiazepines Scrn Negative Urine Cocaine Screen Negative U Marijuana (THC) Screen Positive H 02/19/17 09:08 WBC 9.9 RBC 4.17 Hgb 11.3 L Hct 35.6 MCV 85.4 MCH 27.1 L MCHC 31.7 RDW 13.6 Plt Count 300 MPV 12.2 Immature Gran % 0.6 Seg Neutrophils % 67.7 Lymphocytes % 25.5 Monocytes % 5.2 Eosinophils % 0.7 Basophils % 0.3 Neutrophils # 6.7 Lymphocytes # 2.5 Monocytes # 0.5 Eosinophils # 0.1 Basophils # 0.0 Immature Plt Fraction 12.3 H BUN Creatinine Est GFR ( Amer) Est GFR (Non-Af Amer) BUN/Creatinine Ratio Uric Acid AST ALT Lactate Dehydrogenase Urine Opiates Screen Ur Barbiturates Screen Ur Phencyclidine Scrn Ur Amphetamines Screen U Benzodiazepines Scrn Urine Cocaine Screen U Marijuana (THC) Screen Date of admission: 02/19/17 08:26 Primary care physician: PCP NONE Consults: 02/19/17 08:38 Consult to Substance Addiction Coordinator (W&C) [CONS] Stat Reason For Exam: Reason for SW Consult: hx drug use, chlamydia, group 02/19/17 20:24 Consult to Hides Inspector [CONS] Routine Comment: Vaginal delivery, consult needed Discharging clinician: Annalisa [place] Anticipated date of discharge: 02/20/17 - Patient Status Disposition: Home, Self-Care Condition: Good Functional capacity at discharge: independent ambulation Overall status at discharge: patient is progressing back to baseline - Discharge Instructions Follow Up With: NONE,PCP [Primary Care Provider] - Ha Gonzales MD [Partnered Physician] - - Diet and Activity Activity: increase activity as tolerated Diet: regular diet Hospital Course Reason for admission: induction of labor, IUP at term Delivery: Episiotomy: none Laceration: 1st degree Other procedures: none complications: none Discharge diagnosis: IUP at term delivered [place] baby: female Time spent discussing smoking cessation with patient: 3 to 10 minutes Time Attestation: Total time spent providing and/or coordinating discharge services: Time Spent: Less than 30 minutes Exam - Constitutional Vitals: Temp Pulse Resp BP Pulse Ox 97.9 F 61 14 103/66 96 02/20/17 04:25 02/20/17 04:02/20/17 04:25 02/20/17 04:02/20/17 04:25 General appearance IM: cooperative, A&O X 3, pleasant - Respiratory Respiratory exam: Present: CTAB - Cardiovascular Cardiovascular exam IM: Present: RRR, +S1, +S2 - GI/Abdominal GI/Abdominal exam IM: normal bowel sounds, soft - Rectal Rectal exam: deferred - Uterine Tone: Firm Uterus Position: 1 Finger Below Umbilicus, Midline - Extremities Exam Extremities exam IM: Present: normal capillary refill, normal inspection, radial pulses palpable and symmetrical - Neurological Exam Neurological exam: alert, oriented X3
[2017-02-20] MEDS ORDERED: Prenatal Vit/FA 1 EACH TABLET PO SCH (09:00)
[2017-02-20 09:14] LABS: Protein/Creatinine Ratio,Urine 0.08 mg/mg (0-0.20)
[2017-02-20 09:38] VITALS: BP 121/85
[2017-02-20] MEDS: *HR* Buprenorphine HCl 2 MG SUBLINGUAL TABLET SL SCH (09:42)
[2017-02-20] MEDS: Ibuprofen 600 MG TABLET PO PRN (09:43)
== END 2017-02-20 09:45 | disposition home or self-care (01) | DRG 560 ==
LOC: 1NENULAB 08:26 → 1NENUOBS 21:34
PROVIDERS: ADMIT Student in an Organized Health Care Education/Training Program; ATTEND Student in an Organized Health Care Education/Training Program

== ENCOUNTER 2017-05-14 18:20 | Observation (INO) ==
[2017-05-14] MEDS ORDERED: Ondansetron 4 MG/2 ML VIAL IVP PRN ×2 (18:40→23:29)
[2017-05-14] MEDS ORDERED: 0.9 % Sodium Chloride 1,000 ML IVC ONE (18:41)
[2017-05-14 19:28] LABS: Bilirubin,Urine Small (Negative); Blood,Urine Negative (Negative); Clarity,Urine Turbid (Clear); Color,Urine Dark Yellow (Yellow); Glucose,Urine (UA) Normal (Normal); Ketones,Urine Negative (Negative); Leukocyte Esterase,Urine Negative (Negative); Nitrite,Urine Negative (Negative); Protein,Urine >=300 mg/dL (Neg-Trace); Specific Gravity,Urine > 1.030 (1.010-1.025); Urobilinogen,Urine Normal (Normal)
[2017-05-14 19:30] LABS: Hyaline Casts,Urine Few per lpf (None-Few); Squamous Epithelial Cell,Urine Many per lpf (None-Few)
[2017-05-14 19:50] LABS: Mucus,Urine Many (Few); RBC,Urine 0-3 per hpf (0-3)
[2017-05-14 19:51] LABS: Bacteria,Urine Moderate per hpf (None-Few)
[2017-05-14] MEDS ORDERED: Ondansetron ODT 4 MG TAB.RAPDIS SL ONE ×2 (20:02→20:09)
[2017-05-14] MEDS ORDERED: *HR* Promethazine 25 MG/ML VIAL IM ONE (20:09)
[2017-05-14] MEDS ORDERED: cloNIDine HCl 0.1 MG TABLET PO ONE (20:09)
[2017-05-14] MEDS ORDERED: CloNIDine Patch 0.1 MG PATCH (WEEKLY) TD SCH (20:15)
--- NOTE | 2017-05-14 20:24 | Emergency Department Note ---
Disposition Clinical Impression: Intractable nausea and vomiting Qualifiers: Vomiting type: unspecified Qualified Code(s): R11.2 - Nausea with vomiting, unspecified Disposition: Admitted As Inpatient Condition: Good Time of Disposition: 22:42 General Adult HPI - General Chief complaint: ED Nausea/Vomiting/Diarrhea Stated complaint: detox Time Seen by Provider: 05/14/17 18:39 Source: patient, EMS Mode of arrival: EMS Limitations: no limitations Nursing Notes Reviewed: Yes Vital Signs Reviewed: Yes - History of Present Illness HPI Narrative: 27-year-old female presenting to the emergency department with chief complaint of opioid withdrawal. Patient states she has been using for the past couple weeks. She states she injects 20 mg Percocet V IV mixed with water 4-6 times a day. Her last ingestion was 6 PM last evening. Patient states she is feeling nauseous and achy all over. She denies any chest pain or shortness of breath. She has had a few episodes of vomiting today. Patient denies any fevers. She denies any other past medical history at this time. She denies any other medications. Pain Scale: 0 - Related Data Home Medications Medication Instructions Recorded Confirmed Vit Calc,Iron,Folic 1 tab PO DAILY 02/19/17 02/19/17 [ Vitamins] Previous Rx's Medication Instructions Recorded Benzocaine/Menthol [place] 1 appl TP QID PRN aerosol 02/20/17 [Dermoplast [place]] Buprenorphine HCl [Subutex] 8 mg SL BID tab.subl 02/20/17 Docusate [Colace] 100 mg PO BID PRN #20 capsule 02/20/17 Ferrous Sulfate 325 mg PO DAILY #30 tablet 02/20/17 Ibuprofen [Motrin] 600 mg PO Q6HR PRN #30 tablet 02/20/17 Lanolin [Lansinoh] 1 appl TP TID PRN oint...g. 02/20/17 Allergies Allergy/AdvReac Type Severity Reaction Status Date / Time No Known Allergies Allergy Verified 09/03/16 13:00 All systems ED: reviewed and negative except as stated. Constitutional: Denies: fever, chills Eyes: Reports: as per HPI ENT ED: Reports: as per HPI Cardiovascular: Denies: chest pain, palpitations Respiratory: Denies: cough, dyspnea, wheezes Gastrointestinal: Reports: nausea, vomiting Genitourinary: Reports: as per HPI Musculoskeletal: Reports: as per HPI Integumentary: Reports: other (track john noted on the right arm). Denies: rash Neurological: Denies: weakness, numbness, paresthesias Psychiatric: Reports: as per HPI Endocrine: Reports: as per HPI Hematological/Lymphatic: Reports: as per HPI Allergic/Immunologic: Reports: as per HPI Past Medical History - Past Medical History Attestation: Yes The following information was validated with the patient. 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 Absent: scleral icterus, conjunctival injection - Neck Neck exam: Present: normal inspection, full ROM. Absent: tenderness, meningismus - Chest Chest inspection: Present: normal inspection, symmetric chest wall rise. Absent : tenderness, rash - Respiratory Respiratory exam: Present: normal lung sounds bilaterally. Absent: respiratory distress, wheezes - Cardiovascular Cardiovascular exam: Present: regular rate, normal rhythm, normal heart sounds - Abdominal Exam Abdominal exam: Present: soft, tenderness. Absent: distention, guarding, rebound, rigidity Abdominal tenderness: Present: diffuse, mild - Extremities Exam Extremities exam: Present: normal inspection, full ROM - Neurological Exam Neurological exam: Present: alert, oriented X3 - Psychiatric Psychiatric exam: Present: normal affect, normal mood - Skin Skin exam: Present: warm Course Course Narrative: Time 7-year-old female presenting to the emergency Department chief complaint of opioid withdrawal. We will symptomatically treat the patient and get basic lab work along with urinalysis. We will provide the patient with Zofran, fluids and clonidine. She is alert and oriented 3 in the room with stable vital signs at this time. She agrees this plan. Disposition most likely discharge after symptomatic control. - Reevaluation(s) Reevaluation #1: All the patient's lab work and urine within normal limits. We have provided the patient with 24 mg of Zofran, IM Phenergan and fluids and the patient has intractable nausea and vomiting. I spoke with the patient about admission for this and she agrees. She is alert and oriented 3 in the room and stable vital signs at this time. I spoke with the hospitalist Dr. Ro who agrees to accept the patient at this time. He would like us to add a urine drug screen to the patient's workup. I have added that. Vital Signs Temperature 99.4 F 05/14/17 18:34 Pulse Rate 97 05/14/17 18:34 Respiratory Rate 18 05/14/17 18:34 Blood Pressure 145/96 05/14/17 18:34 O2 Sat by Pulse Oximetry 97 05/14/17 18:34 Temperature 99.4 F 05/14/17 18:34 Pulse Rate 82 05/14/17 22:17 Respiratory Rate 16 05/14/17 23:19 Blood Pressure 135/90 05/14/17 23:19 O2 Sat by Pulse Oximetry 97 05/14/17 18:34 Oxygen Delivery Oxygen Delivery Room Air Medical Decision Making - Lab Data Result diagrams: 05/14/17 20:00 Lab Results 05/14/17 05/14/17 05/14/17 Range/Units 19:15 19:15 19:15 Sodium (136-145) mEq/L Potassium (3.5-4.5) mEq/L Chloride (98-109) mEq/L Carbon Dioxide (19-29) mEq/L BUN (7-20) mg/dL Creatinine (0.57-1.11) mg/dL Est GFR ( Amer) (> 60) Est GFR (Non-Af Amer) (> 60) BUN/Creatinine Ratio (6-26) Glucose (70-99) mg/dL Calculated Osmolality (280-300) Calcium (8.6-10.8) mg/dL Urine Color Dark Yellow (Yellow) Urine Clarity Turbid A (Clear) Urine pH 6.0 (5.0-8.0) pH Units Ur Specific [place] > 1.030 H (1.010-1.025) Urine Protein >=300 H (Neg-Trace) mg/dL Urine Glucose (UA) Normal (Normal) mg/dL Urine Ketones Negative (Negative) mg/dL Urine Blood Negative (Negative) Urine Nitrite Negative (Negative) Urine Bilirubin Small H (Negative) Urine Urobilinogen Normal (Normal) mg/dL Ur Leukocyte Esterase Negative (Negative) Urine Microscopic RBC 0-3 (0-3) per hpf Urine Microscopic WBC 3-5 H (0-3) per hpf Ur Squamous Epith Cells Many H (None-Few) per lpf Urine Bacteria Moderate H (None-Few) per hpf Hyaline Casts Few (None-Few) per lpf Urine Mucus Many H (Few) Urine Test Negative (Negative) Urine Opiates Screen Positive H (Ybduue=830) ng/mL Ur Barbiturates Screen Negative (Blliet=573) ng/mL Ur Phencyclidine Scrn Negative (Cutoff=25) ng/mL Ur Amphetamines Screen Negative (Onrphm=0293) ng/mL U Benzodiazepines Scrn Negative (Lewopp=329) ng/mL Urine Cocaine Screen Negative (Cutoff= 300) ng/mL U Marijuana (THC) Screen Positive H (Cutoff = 50) ng/mL 05/14/17 Range/Units 20:00 Sodium 138 (136-145) mEq/L Potassium 3.6 (3.5-4.5) mEq/L Chloride 97 L (98-109) mEq/L Carbon Dioxide 25 (19-29) mEq/L BUN 12 (7-20) mg/dL Creatinine 0.82 (0.57-1.11) mg/dL Est GFR ( Amer) > 60 (> 60) Est GFR (Non-Af Amer) > 60 (> 60) BUN/Creatinine Ratio 15 (6-26) Glucose 115 H (70-99) mg/dL Calculated Osmolality 287 (280-300) Calcium 11.6 H (8.6-10.8) mg/dL Urine Color (Yellow) Urine Clarity (Clear) Urine pH (5.0-8.0) pH Units Ur Specific [place] (1.010-1.025) Urine Protein (Neg-Trace) mg/dL Urine Glucose (UA) (Normal) mg/dL Urine Ketones (Negative) mg/dL Urine Blood (Negative) Urine Nitrite (Negative) Urine Bilirubin (Negative) Urine Urobilinogen (Normal) mg/dL Ur Leukocyte Esterase (Negative) Urine Microscopic RBC (0-3) per hpf Urine Microscopic WBC (0-3) per hpf Ur Squamous Epith Cells (None-Few) per lpf Urine Bacteria (None-Few) per hpf Hyaline Casts (None-Few) per lpf Urine Mucus (Few) Urine Test (Negative) Urine Opiates Screen (Qpzlvx=095) ng/mL Ur Barbiturates Screen (Suzprq=505) ng/mL Ur Phencyclidine Scrn (Cutoff=25) ng/mL Ur Amphetamines Screen (Knsmjo=5537) ng/mL U Benzodiazepines Scrn (Dbgroy=049) ng/mL Urine Cocaine Screen (Cutoff= 300) ng/mL U Marijuana (THC) Screen (Cutoff = 50) ng/mL Attestation Statement - Attestation Attestation: I examined this patient and my medical decision-making was reviewed with the Resident Physician. I agree with the documented findings, disposition and treatment plan as described except to the extent set forth below. Opioid withdrawal, day #2, with intractable vomiting. Accepted for admission by hospitalist.
[2017-05-14 20:33] LABS: Blood Urea Nitrogen 12 mg/dL (7-20); Carbon Dioxide 25 mEq/L (19-29); Chloride 97 mEq/L (98-109); Potassium 3.6 mEq/L (3.5-4.5); Sodium 138 mEq/L (136-145)
[2017-05-14 20:34] LABS: BUN/Creatinine Ratio 15 (6-26); Calcium 11.6 mg/dL (8.6-10.8); Glucose 115 mg/dL (70-99); Osmolality,Calculated 287 (280-300); eGFR For African Americans > 60 (> 60); eGFR For Non-African Americans > 60 (> 60)
[2017-05-14] MEDS ORDERED: Haloperidol Lactate 5 MG/ML VIAL IVP ONE (21:55)
[2017-05-14 22:27] LABS: Amphetamine Screen,Urine Negative ng/mL (Cutoff=1000); Barbiturate Screen,Urine Negative ng/mL (Cutoff=200); Benzodiazepines Screen,Urine Negative ng/mL (Cutoff=200); Cannabinoid Screen,Urine Positive ng/mL (Cutoff = 50); Cocaine Screen,Urine Negative ng/mL (Cutoff= 300); Opiate Screen,Urine Positive ng/mL (Cutoff=300); Phencyclidine Screen,Urine Negative ng/mL (Cutoff=25)
[2017-05-14] MEDS ORDERED: Acetaminophen 325 MG TABLET PO PRN (23:29)
[2017-05-14] MEDS ORDERED: *HR* Promethazine 25 MG/ML VIAL IVP PRN (23:29)
[2017-05-14] MEDS ORDERED: *HR* Morphine 2 MG/ML SYRINGE IVP PRN (23:29)
[2017-05-14] MEDS ORDERED: Mag Hydrox/Al Hydrox/Simeth 30 ML UDC PO PRN (23:29)
[2017-05-14] MEDS ORDERED: Naloxone 0.4 MG/ML INJ IVP PRN (23:29)
[2017-05-14] MEDS ORDERED: 0.9 % Sodium Chloride 1,000 ML IVC SCH (23:30)
[2017-05-14] MEDS ORDERED: *HR* LORazepam 2 MG/ML VIAL IVP PRN (23:32)
--- NOTE | 2017-05-15 00:42 | Internal Med History&Physical ---
Date of Encounter: 05/14/17 Time of Encounter: 23:45 Assessment and Plan (1) Opioid withdrawal Current visit: Yes Status: Acute will place the pt into Tele for observation her intractable nausea and vomiting are due to opioid withdrawal counseled the pt to quit doing drugs will put her on chief estimator Pt was placed on Clonidine in the ER..will continue it IV hydration CIWA protocol Ativan PRN SW consulted Accu checks ACHS cont symptomatic and supportive care with anti emetics (2) Intractable nausea and vomiting Current visit: Yes Status: Acute see above Qualifiers: Vomiting type: unspecified Qualified Code(s): R11.2 - Nausea with vomiting , unspecified (3) Substance abuse Current visit: Yes Status: Acute counseled to quit SW consulted Reviewed UDS - showed Opioids and Marijuana positive (4) Narcotic dependence Current visit: Yes Status: Acute counseled to quit smoking placed her on nicotine patch Internal Medicine - H&P: HPI Chief complaint: Opioid withdrawl Admitted From: Emergency Dept Plans for Post Hospital Care: Home History of present illness: Ms. 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 Pt stated she has been injecting Percocet 4-5 tablets mixed with water 4-6 times a day. She had her last dose y/d evening at 6 PM. She decided to quit doing it. Since this morning she has generalized body aches and intractable nausea and vomiting. Denied any CP / SOB. Denied any diarrhea. She denied any suicidal / homicidal ideation or thoughts. Past Med Surg Social Fam HX - Past Medical History Medical history: asthma, other Psychiatric history: bipolar, depression - Past Surgical History Surgical History: cholecystectomy, knee replacement - Social History Smoking Status: Current every day smoker Smokeless Tobacco Status: No Alcohol use: none Drug use: opiates, marijuana, IV Drug Use, prescription drug abuse - Family History Mother Hx Family GI Disorders: Yes (crohns) Internal Medicine - H&P: Meds Vit Calc,Iron,Folic [ Vitamins] 1 tab PO DAILY 02/19/17 [ History] Benzocaine/Menthol [place] [Dermoplast [place]] 1 appl TP QID PRN aerosol 02/20/17 [Rx] Buprenorphine HCl [Subutex] 8 mg SL BID tab.subl 02/20/17 [Rx] Docusate [Colace] 100 mg PO BID PRN #20 capsule 02/20/17 [Rx] Ferrous Sulfate 325 mg PO DAILY #30 tablet 02/20/17 [Rx] Ibuprofen [Motrin] 600 mg PO Q6HR PRN #30 tablet 02/20/17 [Rx] Lanolin [Lansinoh] 1 appl TP TID PRN oint...g. 02/20/17 [Rx] 3 Allergy/AdvReac Type Severity Reaction Status Date / Time No Known Allergies Allergy Verified 09/03/16 13:00 All Systems PM: A 10-system review of systems was performed and is negative for pertinent findings except as documented above in the HPI. Review of systems: All the systems are reviewed everything is benign except the systems and symptoms I mentioned in the history of present illness - Constitutional Vitals: Temp Pulse Resp BP Pulse Ox 98.5 F 66 14 148/88 97 05/15/17 00:29 05/15/17 00:29 05/15/17 00:29 05/15/17 00:29 05/15/17 00:29 General appearance: Present: A&O X 3, no acute distress, answers questions appropriately - Head Head exam: Present: atraumatic, normal inspection - Respiratory Respiratory exam: Present: decreased breath sounds. Absent: rales, respiratory distress, rhonchi, wheezes - Cardiovascular Cardiovascular exam: Present: RRR, +S1, +S2. Absent: tachycardia - GI/Abdominal GI/Abdominal exam: Present: normal bowel sounds, soft. Absent: rebound, rigid, tenderness - Extremities Exam Extremities exam: Absent: calf tenderness, pedal edema, tenderness - Back Exam Back exam: Absent: CVA tenderness (L), CVA tenderness (R) - Neurological Exam Neurological exam: Present: alert, oriented X3 - Psychiatric Psychiatric exam: Present: depressed. Absent: homicidal ideation, suicidal ideation - Skin Skin exam: Absent: rash Internal Med - H&P Results - Labs CBC & Chem 7: 05/14/17 20:00
[2017-05-15 05:42] LABS: Basophils % 0.1 %; Hematocrit 42.5 % (35.3-44.9); Hemoglobin 13.3 g/dL (11.5-15.4); Immature Granulocytes % 0.5 % (0-4); Lymphocytes # 2.5 K/mcL (0.6-4.6); Lymphocytes % 17.1 %; Mean Corpuscular HGB Conc 31.3 g/dL (31.6-35.5); Mean Corpuscular Hemoglobin 25.7 pg (28.0-33.3); Mean Platelet Volume 10.8 fL (9.4-12.4); Monocytes # 0.9 K/mcL (0.0-1.3); Neutrophils # 11.2 K/mcL (1.6-8.9); Platelet Count 552 K/mcL (140-400); Red Blood Count 5.18 M/mcL (3.82-4.97); Red Cell Distribution Width 14.8 % (11.5-14.5); Segmented Neutrophils % 76.3 %
[2017-05-15 06:04] LABS: Alanine Aminotransferase 73 Units/L (0-55); Albumin 3.7 g/dL (3.5-5.0); Albumin/Globulin Ratio 0.8 (1.1-2.2); Alkaline Phosphatase 74 Units/L (38-126); Aspartate Amino Transferase 33 Units/L (5-34); BUN/Creatinine Ratio 17 (6-26); Bilirubin,Total 0.4 mg/dL (0.2-1.2); Blood Urea Nitrogen 13 mg/dL (7-20); Carbon Dioxide 24 mEq/L (19-29); Chloride 100 mEq/L (98-109); Globulin 4.4 g/dL (2.4-3.5); Glucose 116 mg/dL (70-99); Osmolality,Calculated 289 (280-300); Potassium 2.9 mEq/L (3.5-4.5); Sodium 139 mEq/L (136-145); Total Protein 8.1 g/dL (6.0-8.3); eGFR For African Americans > 60 (> 60); eGFR For Non-African Americans > 60 (> 60)
[2017-05-15 06:05] LABS: Calcium 9.2 mg/dL (8.6-10.8)
[2017-05-15] MEDS ORDERED: Potassium Chloride Elixir 20 MEQ/15 ML UDC PO ONE (08:18)
[2017-05-15] MEDS ORDERED: *HR* Buprenorphine HCl 8 MG TAB.SUBL SL SCH (09:00)
[2017-05-15 11:45] VITALS: BP 107/68
--- NOTE | 2017-05-15 13:00 | Discharge Summary ---
Date of Encounter: 05/15/17 Time of Encounter: 12:57 - Discharge Diagnosis (1) Intractable nausea and vomiting Priority: Primary Status: Acute Qualifiers: Vomiting type: unspecified Qualified Code(s): R11.2 - Nausea with vomiting , unspecified (2) Opioid withdrawal Priority: Primary Status: Acute (3) Nicotine dependence Priority: Secondary Status: Chronic Qualifiers: Nicotine product type: cigarettes Substance use status: uncomplicated Qualified Code(s): F17.210 - Nicotine dependence, cigarettes, uncomplicated (4) Substance abuse Priority: Secondary Status: Chronic - Discharge Medications Prescriptions: Ondansetron ODT [Zofran ODT] 4 mg SL Q6HR PRN #20 tab.rapdis PRN Reason: Nausea And Vomiting Home Medications: Ondansetron ODT [Zofran ODT] 4 mg SL Q6HR PRN #20 tab.rapdis 05/15/17 [Rx] Allergies/Adverse Reactions: 3 Allergy/AdvReac Type Severity Reaction Status Date / Time No Known Allergies Allergy Verified 05/15/17 09:00 Date of admission: 05/14/17 23:06 Primary care physician: PCP NONE Consults: 05/14/17 23:32 Consult to Mortgage Loan Counselor [CONS] Routine Reason for SW Consult: Drug dependence Discharging clinician: Debby Pleitez Anticipated date of discharge: 05/15/17 - Patient Status Disposition: Home, Self-Care Condition: Good Functional capacity at discharge: independent ambulation Overall status at discharge: patient is progressing back to baseline - Discharge Instructions Follow Up With: NONE,PCP [Primary Care Provider] - Additional Instructions: F/up with PCP in 1-2 weeks- needs new PCP F/up with substance abuse help centers, information provided by - Diet and Activity Activity: resume usual activities as tolerated Diet: advance to your usual diet Hospital course: Ms. Diehl is a 27 year old female with history of substance abuse, who presented with complaints of persistent nausea and vomiting. she injects 20 mg Percocet V IV mixed with water 4-6 times a day. Her last ingestion was 6 PM on the evening prior to presentation. She was started on supportive care with IV hydration, when necessary antiemetics and when necessary Ativan. She was noted to have electrolyte abnormalities with low potassium and magnesium and she received supplementation. She reports feeling better and interested on being discharged this morning. Remaining labs were unremarkable and she remained hemodynamically stable. rehabilitation services manager was consulted and patient received community resources for drug rehabilitation and is medically stable for discharge. - Time Spent with Patient Total time spent providing and/or coordinating discharge services: Greater than 30 minutes (40 min) - Constitutional Vitals: Temp Pulse Resp BP Pulse Ox 98 F 67 16 107/68 95 05/15/17 11:00 05/15/17 11:00 05/15/17 11:00 05/15/17 11:00 05/15/17 11:00 General appearance: Present: A&O X 3, no acute distress, answers questions appropriately - Cardiovascular Cardiovascular exam: Present: RRR, +S1, +S2. Absent: diastolic murmur, gallop, rubs, systolic murmur
== END 2017-05-15 15:58 | disposition home or self-care (01) ==
LOC: 3NENU 18:20 → EMEROO 18:20 → 3NENU 23:20
PROVIDERS: ADMIT Family Medicine; ATTEND Internal Medicine

== ENCOUNTER 2017-07-11 14:25 | Inpatient (IN) ==
[2017-07-11] MEDS ORDERED: 0.9 % Sodium Chloride 1,000 ML IVC ONE ×2 (14:36→21:10)
[2017-07-11] MEDS ORDERED: Metoclopramide 10 MG/2 ML VIAL IVP ONE ×2 (14:36→17:40)
--- NOTE | 2017-07-11 14:41 | Emergency Department Note ---
Disposition Clinical Impression: Tobacco use, Substance abuse, Hypokalemia Qualifiers: Weeks of gestation: unspecified Qualified Code(s): Z34.90 - Encounter for supervision of normal , unspecified, unspecified trimester Nausea and vomiting Qualifiers: Vomiting type: unspecified Vomiting Intractability: non-intractable Qualified Code(s): R11.2 - Nausea with vomiting, unspecified Disposition: Admitted As Inpatient Condition: Fair Referrals: NONE,PCP [Primary Care Provider] - Forms: ED Satisfaction Letter, Work/School Release Time of Disposition: 17:36 Abdominal Pain HPI - General Chief Complaint: ED Abdominal Pain Stated Complaint: nausea, abd pain, off opiods 1 weeks, + preg test Time Seen by Provider: 07/11/17 14:36 Source: patient, EMS Mode of arrival: EMS Limitations: no limitations Nursing Notes Reviewed: Yes Vital Signs Reviewed: Yes - History of Present Illness HPI Narrative: 27-year-old at unknown gestation likely 6-7 weeks for her last menstrual. LMP middle Dec. presents for evaluation of 6 days of nausea vomiting abdominal and back pain. Patient states he took a home test 6 days ago and was positive. States that she has had several episodes of nausea and vomiting since then. Patient notes abdominal and back pain subsequent to the vomiting. States he does have prior pregnancies, cared by [facility]. 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 Denies any vaginal bleeding or discharge. Denies any fevers. Also notes he has a history of substance abuse with Percocets in the past and has been off Percocets for the past 6 days given her recent positive test. Pain Scale: 7 - Related Data Previous Rx's Medication Instructions Recorded Ondansetron ODT [Zofran ODT] 4 mg SL Q6HR PRN #20 tab.rapdis 05/15/17 Allergies Allergy/AdvReac Type Severity Reaction Status Date / Time No Known Allergies Allergy Verified 07/11/17 14:32 All systems ED: reviewed and negative except as stated. 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: Psychiatric history: Reports: bipolar, depression - Social History Smoking status: Current every day smoker Alcohol use: Reports: none Drug use: Reports: opiates, marijuana, IV Drug Use, prescription drug abuse Physical Exam - General Limitations: no limitations General appearance: alert, anxious - Head Head exam: atraumatic, normocephalic, normal inspection - Eye Eye exam: Present: normal appearance, PERRL, EOMI - ENT ENT exam: normal exam, normal oropharynx, mucous membranes moist - Neck Neck exam: Present: normal inspection, trachea midline - Chest Chest inspection: Present: normal inspection, symmetric chest wall rise - Respiratory Respiratory exam: Present: normal lung sounds bilaterally. Absent: respiratory distress - Cardiovascular Cardiovascular exam: Present: regular rate, normal rhythm. Absent: systolic murmur - Abdominal Exam Abdominal exam: Present: soft, Non-Tender - Extremities Exam Extremities exam: Present: normal inspection. Absent: pedal edema - Back Exam Back exam: Present: normal inspection - Neurological Exam Neurological exam: Present: alert, oriented X3 - Skin Skin exam: Present: warm, dry, intact, normal color Course Course Narrative: Patient seen and examined. Patient does have early . Bedside ultrasound did not reveal an intrauterine gestation. Patient will need a formal OB ultrasound as well as subtraction with antiemetics IV fluids. Basic lab work will also be obtained. - Reevaluation(s) Reevaluation #1: Patient stressed comfortably. No acute distress. Time: 17:34 Vital Signs Temperature 97.4 F L 07/11/17 14:28 Pulse Rate 103 07/11/17 14:28 Respiratory Rate 18 07/11/17 14:28 Blood Pressure 139/100 07/11/17 14:28 O2 Sat by Pulse Oximetry 97 07/11/17 14:28 Temperature 97.4 F L 07/11/17 14:28 Pulse Rate 103 07/11/17 14:28 Respiratory Rate 18 07/11/17 14:28 Blood Pressure 139/100 07/11/17 14:28 O2 Sat by Pulse Oximetry 97 07/11/17 14:28 Oxygen Delivery Oxygen Delivery Room Air Abdominal Pain - MDM Narrative Medical decision making narrative: 27-year-old female presents for evaluation of hyperemesis. Patient states she has been constantly vomiting for the past week. The patient states that she does have a history of substance abuse. Patient's vomiting likely secondary to multiple etiologies one of which is acute withdrawal from opiates. The patient also states that she had a positive test. Which prompted her acute withdrawal. She states she had problems with nausea with prior pregnancies. During the patient's emergency department evaluation she was found to be hypokalemic. Patient also had a bedside obstetrics ultrasound. Patient will need to be admitted to the hospitalist service for her electrolyte derangement. Patient was given several antiemetics in the emergency department to help control her nausea. - Lab Data Lab results reviewed: Yes I reviewed the patient's lab results. Result diagrams: 07/11/17 16:12 07/11/17 16:48 Lab Results 07/11/17 07/11/17 07/11/17 Range/Units 16:12 16:48 17:16 WBC 16.5 H (4.3-11.1) K/mcL RBC 6.37 H (3.82-4.97) M/mcL Hgb 17.1 H (11.5-15.4) g/dL Hct 51.5 H (35.3-44.9) % MCV 80.8 L (83.0-100.0) fL MCH 26.8 L (28.0-33.3) pg MCHC 33.2 (31.6-35.5) g/dL RDW 16.5 H (11.5-14.5) % Plt Count 430 H (140-400) K/mcL MPV 10.4 (9.4-12.4) fL Immature Gran % 0.5 (0-4) % Seg Neutrophils % 74.5 % Lymphocytes % 17.7 % Monocytes % 7.0 % Eosinophils % 0.1 % Basophils % 0.2 % Neutrophils # 12.3 H (1.6-8.9) K/mcL Lymphocytes # 2.9 (0.6-4.6) K/mcL Monocytes # 1.2 (0.0-1.3) K/mcL Eosinophils # 0.0 (0.0-0.6) K/mcL Basophils # 0.0 (0.0-0.2) K/mcL Platelet Estimate Increased H (Normal) Sodium 132 L (136-145) mEq/L Potassium 2.4 L* (3.5-5.1) mEq/L Chloride 80 L (98-107) mEq/L Carbon Dioxide 38 H (23-29) mEq/L BUN 20 (6-20) mg/dL Creatinine 0.89 (0.60-1.20) mg/dL Est GFR ( Amer) > 60 (> 60) Est GFR (Non-Af Amer) > 60 (> 60) BUN/Creatinine Ratio 22 (6-26) Glucose 118 H (70-105) mg/dL Calculated Osmolality 278 L (280-300) Calcium 10.4 H (8.6-10.3) mg/dL Total Bilirubin 0.5 (0.3-1.0) mg/dL Direct Bilirubin 0.1 (0.0-0.2) mg/dL Indirect Bilirubin 0.4 (0.0-1.2) mg/dL AST 22 (13-39) Units/L ALT 36 (7-52) Units/L Alkaline Phosphatase 73 (34-104) Units/L Serum Total Protein 9.0 H (6.4-8.9) g/dL Albumin 5.3 (3.5-5.7) g/dL Globulin 3.7 H (2.4-3.5) g/dL Albumin/Globulin Ratio 1.4 (1.1-2.2) Lipase 23 (11-82) Units/L Urine Color Dark Yellow (Yellow) Urine Clarity Turbid A (Clear) Urine pH 6.0 (5.0-8.0) pH Units Ur Specific [place] > 1.030 H (1.010-1.025) Urine Protein >=300 H (Neg-Trace) mg/dL Urine Glucose (UA) Normal (Normal) mg/dL Urine Ketones Negative (Negative) mg/dL Urine Blood Trace H (Negative) Urine Nitrite Negative (Negative) Urine Bilirubin Small H (Negative) Urine Urobilinogen Normal (Normal) mg/dL Ur Leukocyte Esterase Negative (Negative) Urine Microscopic RBC 0-3 (0-3) per hpf Urine Microscopic WBC 5-15 H (0-3) per hpf Ur Squamous Epith Cells Many H (None-Few) per lpf Urine Bacteria Moderate H (None-Few) per hpf Hyaline Casts Few (None-Few) per lpf Ur Culture Indicated? NO (NO) - Radiology Data Radiology results reviewed: Yes I reviewed the patient's radiology results. - EKG Data EKG attestation: Yes I reviewed and interpreted this EKG. EKG shows normal: sinus rhythm Rate: normal Rhythm: arrhythmia Interpretation: no acute changes, unchanged when compared to prior tracing (date )
[2017-07-11] MEDS ORDERED: *HR* Promethazine 25 MG/ML VIAL IM ONE (15:57)
--- NOTE | 2017-07-11 16:14 | Emergency Department Note ---
Disposition Clinical Impression: Tobacco use, Substance abuse, Hypokalemia Qualifiers: Weeks of gestation: unspecified Qualified Code(s): Z34.90 - Encounter for supervision of normal , unspecified, unspecified trimester Nausea and vomiting Qualifiers: Vomiting type: unspecified Vomiting Intractability: non-intractable Qualified Code(s): R11.2 - Nausea with vomiting, unspecified Disposition: Admitted As Inpatient Condition: Fair Referrals: NONE,PCP [Primary Care Provider] - Forms: ED Satisfaction Letter, Work/School Release General Adult HPI - General Chief complaint: ED Abdominal Pain Stated complaint: nausea, abd pain, off opiods 1 weeks, + preg test Time Seen by Provider: 07/11/17 14:36 Source: patient, EMS Mode of arrival: EMS Limitations: no limitations - History of Present Illness Pain Scale: 7 - Related Data Previous Rx's Medication Instructions Recorded Ondansetron ODT [Zofran ODT] 4 mg SL Q6HR PRN #20 tab.rapdis 05/15/17 Allergies Allergy/AdvReac Type Severity Reaction Status Date / Time No Known Allergies Allergy Verified 07/11/17 14:32 Constitutional: Denies: fever Cardiovascular: Denies: chest pain Respiratory: Denies: cough, dyspnea Gastrointestinal: Reports: abdominal pain, nausea, vomiting Past Medical History - Past Medical History Medical history: Reports: asthma, other Surgical history: Reports: cholecystectomy, knee replacement Psychiatric history: Reports: bipolar, depression 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: - Social History Smoking Status: Current every day smoker Smokeless Tobacco Status: No Alcohol use: Reports: none Drug use: Reports: opiates, marijuana, IV Drug Use, prescription drug abuse Physical Exam - General Limitations: no limitations General appearance: alert, anxious Course Vital Signs Temperature 97.4 F L 07/11/17 14:28 Pulse Rate 103 07/11/17 14:28 Respiratory Rate 18 07/11/17 14:28 Blood Pressure 139/100 07/11/17 14:28 O2 Sat by Pulse Oximetry 97 07/11/17 14:28 Temperature 97.4 F L 07/11/17 14:28 Pulse Rate 103 07/11/17 14:28 Respiratory Rate 18 07/11/17 14:28 Blood Pressure 139/100 07/11/17 14:28 O2 Sat by Pulse Oximetry 97 07/11/17 14:28 Oxygen Delivery Oxygen Delivery Room Air Medical Decision Making - Lab Data Result diagrams: 07/11/17 16:12 07/11/17 16:48 Lab Results 07/11/17 07/11/17 07/11/17 Range/Units 16:12 16:48 16:48 WBC 16.5 H (4.3-11.1) K/mcL RBC 6.37 H (3.82-4.97) M/mcL Hgb 17.1 H (11.5-15.4) g/dL Hct 51.5 H (35.3-44.9) % MCV 80.8 L (83.0-100.0) fL MCH 26.8 L (28.0-33.3) pg MCHC 33.2 (31.6-35.5) g/dL RDW 16.5 H (11.5-14.5) % Plt Count 430 H (140-400) K/mcL MPV 10.4 (9.4-12.4) fL Immature Gran % 0.5 (0-4) % Seg Neutrophils % 74.5 % Lymphocytes % 17.7 % Monocytes % 7.0 % Eosinophils % 0.1 % Basophils % 0.2 % Neutrophils # 12.3 H (1.6-8.9) K/mcL Lymphocytes # 2.9 (0.6-4.6) K/mcL Monocytes # 1.2 (0.0-1.3) K/mcL Eosinophils # 0.0 (0.0-0.6) K/mcL Basophils # 0.0 (0.0-0.2) K/mcL Platelet Estimate Increased H (Normal) Sodium 132 L (136-145) mEq/L Potassium 2.4 L* (3.5-5.1) mEq/L Chloride 80 L (98-107) mEq/L Carbon Dioxide 38 H (23-29) mEq/L BUN 20 (6-20) mg/dL Creatinine 0.89 (0.60-1.20) mg/dL Est GFR ( Amer) > 60 (> 60) Est GFR (Non-Af Amer) > 60 (> 60) BUN/Creatinine Ratio 22 (6-26) Glucose 118 H (70-105) mg/dL Calculated Osmolality 278 L (280-300) Calcium 10.4 H (8.6-10.3) mg/dL Magnesium 2.3 (1.6-2.6) mg/dL Total Bilirubin 0.5 (0.3-1.0) mg/dL Direct Bilirubin 0.1 (0.0-0.2) mg/dL Indirect Bilirubin 0.4 (0.0-1.2) mg/dL AST 22 (13-39) Units/L ALT 36 (7-52) Units/L Alkaline Phosphatase 73 (34-104) Units/L Serum Total Protein 9.0 H (6.4-8.9) g/dL Albumin 5.3 (3.5-5.7) g/dL Globulin 3.7 H (2.4-3.5) g/dL Albumin/Globulin Ratio 1.4 (1.1-2.2) Lipase 23 (11-82) Units/L Beta HCG, Quant 83138 H (Less than 5) mIU/mL Urine Color (Yellow) Urine Clarity (Clear) Urine pH (5.0-8.0) pH Units Ur Specific [place] (1.010-1.025) Urine Protein (Neg-Trace) mg/dL Urine Glucose (UA) (Normal) mg/dL Urine Ketones (Negative) mg/dL Urine Blood (Negative) Urine Nitrite (Negative) Urine Bilirubin (Negative) Urine Urobilinogen (Normal) mg/dL Ur Leukocyte Esterase (Negative) Urine Microscopic RBC (0-3) per hpf Urine Microscopic WBC (0-3) per hpf Ur Squamous Epith Cells (None-Few) per lpf Urine Bacteria (None-Few) per hpf Hyaline Casts (None-Few) per lpf Ur Culture Indicated? (NO) Urine Opiates Screen (Osgidn=385) ng/mL Ur Barbiturates Screen (Mjrpnk=291) ng/mL Ur Phencyclidine Scrn (Cutoff=25) ng/mL Ur Amphetamines Screen (Yshxds=7750) ng/mL U Benzodiazepines Scrn (Gknqgg=921) ng/mL Urine Cocaine Screen (Cutoff= 300) ng/mL U Marijuana (THC) Screen (Cutoff = 50) ng/mL 07/11/17 07/11/17 Range/Units 17:16 17:16 WBC (4.3-11.1) K/mcL RBC (3.82-4.97) M/mcL Hgb (11.5-15.4) g/dL Hct (35.3-44.9) % MCV (83.0-100.0) fL MCH (28.0-33.3) pg MCHC (31.6-35.5) g/dL RDW (11.5-14.5) % Plt Count (140-400) K/mcL MPV (9.4-12.4) fL Immature Gran % (0-4) % Seg Neutrophils % % Lymphocytes % % Monocytes % % Eosinophils % % Basophils % % Neutrophils # (1.6-8.9) K/mcL Lymphocytes # (0.6-4.6) K/mcL Monocytes # (0.0-1.3) K/mcL Eosinophils # (0.0-0.6) K/mcL Basophils # (0.0-0.2) K/mcL Platelet Estimate (Normal) Sodium (136-145) mEq/L Potassium (3.5-5.1) mEq/L Chloride (98-107) mEq/L Carbon Dioxide (23-29) mEq/L BUN (6-20) mg/dL Creatinine (0.60-1.20) mg/dL Est GFR ( Amer) (> 60) Est GFR (Non-Af Amer) (> 60) BUN/Creatinine Ratio (6-26) Glucose (70-105) mg/dL Calculated Osmolality (280-300) Calcium (8.6-10.3) mg/dL Magnesium (1.6-2.6) mg/dL Total Bilirubin (0.3-1.0) mg/dL Direct Bilirubin (0.0-0.2) mg/dL Indirect Bilirubin (0.0-1.2) mg/dL AST (13-39) Units/L ALT (7-52) Units/L Alkaline Phosphatase (34-104) Units/L Serum Total Protein (6.4-8.9) g/dL Albumin (3.5-5.7) g/dL Globulin (2.4-3.5) g/dL Albumin/Globulin Ratio (1.1-2.2) Lipase (11-82) Units/L Beta HCG, Quant (Less than 5) mIU/mL Urine Color Dark Yellow (Yellow) Urine Clarity Turbid A (Clear) Urine pH 6.0 (5.0-8.0) pH Units Ur Specific [place] > 1.030 H (1.010-1.025) Urine Protein >=300 H (Neg-Trace) mg/dL Urine Glucose (UA) Normal (Normal) mg/dL Urine Ketones Negative (Negative) mg/dL Urine Blood Trace H (Negative) Urine Nitrite Negative (Negative) Urine Bilirubin Small H (Negative) Urine Urobilinogen Normal (Normal) mg/dL Ur Leukocyte Esterase Negative (Negative) Urine Microscopic RBC 0-3 (0-3) per hpf Urine Microscopic WBC 5-15 H (0-3) per hpf Ur Squamous Epith Cells Many H (None-Few) per lpf Urine Bacteria Moderate H (None-Few) per hpf Hyaline Casts Few (None-Few) per lpf Ur Culture Indicated? NO (NO) Urine Opiates Screen Positive H (Wmuoqk=761) ng/mL Ur Barbiturates Screen Negative (Ihlmvi=039) ng/mL Ur Phencyclidine Scrn Negative (Cutoff=25) ng/mL Ur Amphetamines Screen Negative (Ytbgho=6303) ng/mL U Benzodiazepines Scrn Negative (Ctrkwm=949) ng/mL Urine Cocaine Screen Negative (Cutoff= 300) ng/mL U Marijuana (THC) Screen Positive H (Cutoff = 50) ng/mL Attestation Statement - Attestation Attestation: I examined this patient and my medical decision-making was reviewed with the Resident Physician. I agree with the documented findings, disposition and treatment plan as described except to the extent set forth below. Findings consistent with metabolic derangements consistent with hyperemesis gravidarum drug withdrawal. Plan to place central line and replace electrolytes as well as provide ongoing hydration. Patient has extremely difficult IV access due to previous drug abuse disorder. Additionally she had a x-ray jugular vein place with positive aspiration of blood and subsequent blood draw which is displaced on the patient went to the bathroom. She will be admitted after placement of central line.
[2017-07-11 16:22] LABS: Basophils % 0.2 %; Eosinophils % 0.1 %; Hematocrit 51.5 % (35.3-44.9); Hemoglobin 17.1 g/dL (11.5-15.4); Immature Granulocytes % 0.5 % (0-4); Lymphocytes # 2.9 K/mcL (0.6-4.6); Lymphocytes % 17.7 %; Mean Corpuscular HGB Conc 33.2 g/dL (31.6-35.5); Mean Corpuscular Hemoglobin 26.8 pg (28.0-33.3); Mean Corpuscular Volume 80.8 fL (83.0-100.0); Mean Platelet Volume 10.4 fL (9.4-12.4); Monocytes # 1.2 K/mcL (0.0-1.3); Neutrophils # 12.3 K/mcL (1.6-8.9); Platelet Count 430 K/mcL (140-400); Red Blood Count 6.37 M/mcL (3.82-4.97); Red Cell Distribution Width 16.5 % (11.5-14.5); Segmented Neutrophils % 74.5 %
[2017-07-11 16:52] LABS: Platelet Estimate Increased (Normal)
[2017-07-11 17:20] LABS: Alanine Aminotransferase 36 Units/L (7-52); Albumin 5.3 g/dL (3.5-5.7); Albumin/Globulin Ratio 1.4 (1.1-2.2); Alkaline Phosphatase 73 Units/L (34-104); Aspartate Amino Transferase 22 Units/L (13-39); BUN/Creatinine Ratio 22 (6-26); Bilirubin,Direct 0.1 mg/dL (0.0-0.2); Bilirubin,Indirect 0.4 mg/dL (0.0-1.2); Bilirubin,Total 0.5 mg/dL (0.3-1.0); Blood Urea Nitrogen 20 mg/dL (6-20); Calcium 10.4 mg/dL (8.6-10.3); Carbon Dioxide 38 mEq/L (23-29); Chloride 80 mEq/L (98-107); Globulin 3.7 g/dL (2.4-3.5); Glucose 118 mg/dL (70-105); Lipase 23 Units/L (11-82); Osmolality,Calculated 278 (280-300); Potassium 2.4 mEq/L (3.5-5.1); Sodium 132 mEq/L (136-145); eGFR For African Americans > 60 (> 60); eGFR For Non-African Americans > 60 (> 60)
[2017-07-11 17:27] LABS: Bilirubin,Urine Small (Negative); Blood,Urine Trace (Negative); Clarity,Urine Turbid (Clear); Color,Urine Dark Yellow (Yellow); Glucose,Urine (UA) Normal (Normal); Ketones,Urine Negative (Negative); Leukocyte Esterase,Urine Negative (Negative); Nitrite,Urine Negative (Negative); Protein,Urine >=300 mg/dL (Neg-Trace); Specific Gravity,Urine > 1.030 (1.010-1.025); Urobilinogen,Urine Normal (Normal)
[2017-07-11 17:29] LABS: Squamous Epithelial Cell,Urine Many per lpf (None-Few)
[2017-07-11 17:34] LABS: Hyaline Casts,Urine Few per lpf (None-Few); RBC,Urine 0-3 per hpf (0-3)
[2017-07-11 17:35] LABS: Bacteria,Urine Moderate per hpf (None-Few)
[2017-07-11 17:37] LABS: Amphetamine Screen,Urine Negative ng/mL (Cutoff=1000); Barbiturate Screen,Urine Negative ng/mL (Cutoff=200); Benzodiazepines Screen,Urine Negative ng/mL (Cutoff=200); Cannabinoid Screen,Urine Positive ng/mL (Cutoff = 50); Cocaine Screen,Urine Negative ng/mL (Cutoff= 300); Opiate Screen,Urine Positive ng/mL (Cutoff=300); Phencyclidine Screen,Urine Negative ng/mL (Cutoff=25)
[2017-07-11 17:48] LABS: Magnesium 2.3 mg/dL (1.6-2.6)
--- NOTE | 2017-07-11 18:01 | Emergency Department Note ---
Disposition Clinical Impression: Tobacco use, Substance abuse, Hypokalemia Qualifiers: Weeks of gestation: unspecified Qualified Code(s): Z34.90 - Encounter for supervision of normal , unspecified, unspecified trimester Nausea and vomiting Qualifiers: Vomiting type: unspecified Vomiting Intractability: non-intractable Qualified Code(s): R11.2 - Nausea with vomiting, unspecified UTI (urinary tract infection) Qualifiers: Urinary tract infection type: site unspecified Hematuria presence: without hematuria Qualified Code(s): N39.0 - Urinary tract infection, site not specified Disposition: Admitted As Inpatient Condition: Fair Referrals: NONE,PCP [Primary Care Provider] - Forms: ED Satisfaction Letter, Work/School Release Time of Disposition: 21:24 General Adult HPI - General Chief complaint: ED Abdominal Pain Stated complaint: nausea, abd pain, off opiods 1 weeks, + preg test Time Seen by Provider: 07/11/17 14:36 Source: patient, EMS Mode of arrival: EMS Limitations: no limitations - History of Present Illness HPI Narrative: Continuation of the prior documentation. Pain Scale: 7 - Related Data Previous Rx's Medication Instructions Recorded Ondansetron ODT [Zofran ODT] 4 mg SL Q6HR PRN #20 tab.rapdis 05/15/17 Allergies Allergy/AdvReac Type Severity Reaction Status Date / Time No Known Allergies Allergy Verified 07/11/17 14:32 Constitutional: Denies: fever Cardiovascular: Denies: chest pain Respiratory: Denies: cough, dyspnea Gastrointestinal: Reports: abdominal pain, nausea, vomiting Past Medical History - Past Medical History Medical history: Reports: asthma, other Surgical history: Reports: cholecystectomy, knee replacement Psychiatric history: Reports: bipolar, depression 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 Time: 18:00 Consultation #2: Spoke with OB and made aware of the consult. Time: 21:39 Vital Signs Temperature 97.4 F L 07/11/17 14:28 Pulse Rate 103 07/11/17 14:28 Respiratory Rate 18 07/11/17 14:28 Blood Pressure 139/100 07/11/17 14:28 O2 Sat by Pulse Oximetry 97 07/11/17 14:28 Temperature 97.4 F L 07/11/17 14:28 Pulse Rate 67 07/11/17 19:36 Respiratory Rate 16 07/11/17 19:36 Blood Pressure 136/86 07/11/17 19:36 O2 Sat by Pulse Oximetry 98 07/11/17 19:36 Oxygen Delivery Oxygen Delivery Room Air Medical Decision Making - MDM Narrative Medical decision making narrative: 27-year-old female patient for evaluation of nausea vomiting. Patient was noted to be early in . She did have a confirmed intrauterine . Patient has signs and symptoms consistent with hyperemesis. The patient was given several doses of antiemetics in the emergency department. Patient was noted be hypokalemic. Patient had difficult access required a central line. Patient's getting potassium IV. 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 States that they are available and consult. Patient is not 20 weeks. Patient would likely require admission to a telemetry monitored service for symptom control with IV fluids as well as symptom control of her hyperemesis to ensure electrolyte normality. Patient urine to suggest infection with numerous bacteria. Patient will be treated in detail negative culture. - Lab Data Lab results reviewed: Yes I reviewed the patient's lab results. Result diagrams: 07/11/17 16:12 07/11/17 16:48 Lab Results 07/11/17 07/11/17 07/11/17 Range/Units 16:12 16:48 16:48 WBC 16.5 H (4.3-11.1) K/mcL RBC 6.37 H (3.82-4.97) M/mcL Hgb 17.1 H (11.5-15.4) g/dL Hct 51.5 H (35.3-44.9) % MCV 80.8 L (83.0-100.0) fL MCH 26.8 L (28.0-33.3) pg MCHC 33.2 (31.6-35.5) g/dL RDW 16.5 H (11.5-14.5) % Plt Count 430 H (140-400) K/mcL MPV 10.4 (9.4-12.4) fL Immature Gran % 0.5 (0-4) % Seg Neutrophils % 74.5 % Lymphocytes % 17.7 % Monocytes % 7.0 % Eosinophils % 0.1 % Basophils % 0.2 % Neutrophils # 12.3 H (1.6-8.9) K/mcL Lymphocytes # 2.9 (0.6-4.6) K/mcL Monocytes # 1.2 (0.0-1.3) K/mcL Eosinophils # 0.0 (0.0-0.6) K/mcL Basophils # 0.0 (0.0-0.2) K/mcL Platelet Estimate Increased H (Normal) Sodium 132 L (136-145) mEq/L Potassium 2.4 L* (3.5-5.1) mEq/L Chloride 80 L (98-107) mEq/L Carbon Dioxide 38 H (23-29) mEq/L BUN 20 (6-20) mg/dL Creatinine 0.89 (0.60-1.20) mg/dL Est GFR ( Amer) > 60 (> 60) Est GFR (Non-Af Amer) > 60 (> 60) BUN/Creatinine Ratio 22 (6-26) Glucose 118 H (70-105) mg/dL Calculated Osmolality 278 L (280-300) Calcium 10.4 H (8.6-10.3) mg/dL Magnesium 2.3 (1.6-2.6) mg/dL Total Bilirubin 0.5 (0.3-1.0) mg/dL Direct Bilirubin 0.1 (0.0-0.2) mg/dL Indirect Bilirubin 0.4 (0.0-1.2) mg/dL AST 22 (13-39) Units/L ALT 36 (7-52) Units/L Alkaline Phosphatase 73 (34-104) Units/L Serum Total Protein 9.0 H (6.4-8.9) g/dL Albumin 5.3 (3.5-5.7) g/dL Globulin 3.7 H (2.4-3.5) g/dL Albumin/Globulin Ratio 1.4 (1.1-2.2) Lipase 23 (11-82) Units/L Beta HCG, Quant 22484 H (Less than 5) mIU/mL Urine Color (Yellow) Urine Clarity (Clear) Urine pH (5.0-8.0) pH Units Ur Specific [place] (1.010-1.025) Urine Protein (Neg-Trace) mg/dL Urine Glucose (UA) (Normal) mg/dL Urine Ketones (Negative) mg/dL Urine Blood (Negative) Urine Nitrite (Negative) Urine Bilirubin (Negative) Urine Urobilinogen (Normal) mg/dL Ur Leukocyte Esterase (Negative) Urine Microscopic RBC (0-3) per hpf Urine Microscopic WBC (0-3) per hpf Ur Squamous Epith Cells (None-Few) per lpf Urine Bacteria (None-Few) per hpf Hyaline Casts (None-Few) per lpf Ur Culture Indicated? (NO) Urine Opiates Screen (Psafrd=415) ng/mL Ur Barbiturates Screen (Mezszl=247) ng/mL Ur Phencyclidine Scrn (Cutoff=25) ng/mL Ur Amphetamines Screen (Dlmuwl=6052) ng/mL U Benzodiazepines Scrn (Ingpqv=693) ng/mL Urine Cocaine Screen (Cutoff= 300) ng/mL U Marijuana (THC) Screen (Cutoff = 50) ng/mL 07/11/17 07/11/17 Range/Units 17:16 17:16 WBC (4.3-11.1) K/mcL RBC (3.82-4.97) M/mcL Hgb (11.5-15.4) g/dL Hct (35.3-44.9) % MCV (83.0-100.0) fL MCH (28.0-33.3) pg MCHC (31.6-35.5) g/dL RDW (11.5-14.5) % Plt Count (140-400) K/mcL MPV (9.4-12.4) fL Immature Gran % (0-4) % Seg Neutrophils % % Lymphocytes % % Monocytes % % Eosinophils % % Basophils % % Neutrophils # (1.6-8.9) K/mcL Lymphocytes # (0.6-4.6) K/mcL Monocytes # (0.0-1.3) K/mcL Eosinophils # (0.0-0.6) K/mcL Basophils # (0.0-0.2) K/mcL Platelet Estimate (Normal) Sodium (136-145) mEq/L Potassium (3.5-5.1) mEq/L Chloride (98-107) mEq/L Carbon Dioxide (23-29) mEq/L BUN (6-20) mg/dL Creatinine (0.60-1.20) mg/dL Est GFR ( Amer) (> 60) Est GFR (Non-Af Amer) (> 60) BUN/Creatinine Ratio (6-26) Glucose (70-105) mg/dL Calculated Osmolality (280-300) Calcium (8.6-10.3) mg/dL Magnesium (1.6-2.6) mg/dL Total Bilirubin (0.3-1.0) mg/dL Direct Bilirubin (0.0-0.2) mg/dL Indirect Bilirubin (0.0-1.2) mg/dL AST (13-39) Units/L ALT (7-52) Units/L Alkaline Phosphatase (34-104) Units/L Serum Total Protein (6.4-8.9) g/dL Albumin (3.5-5.7) g/dL Globulin (2.4-3.5) g/dL Albumin/Globulin Ratio (1.1-2.2) Lipase (11-82) Units/L Beta HCG, Quant (Less than 5) mIU/mL Urine Color Dark Yellow (Yellow) Urine Clarity Turbid A (Clear) Urine pH 6.0 (5.0-8.0) pH Units Ur Specific [place] > 1.030 H (1.010-1.025) Urine Protein >=300 H (Neg-Trace) mg/dL Urine Glucose (UA) Normal (Normal) mg/dL Urine Ketones Negative (Negative) mg/dL Urine Blood Trace H (Negative) Urine Nitrite Negative (Negative) Urine Bilirubin Small H (Negative) Urine Urobilinogen Normal (Normal) mg/dL Ur Leukocyte Esterase Negative (Negative) Urine Microscopic RBC 0-3 (0-3) per hpf Urine Microscopic WBC 5-15 H (0-3) per hpf Ur Squamous Epith Cells Many H (None-Few) per lpf Urine Bacteria Moderate H (None-Few) per hpf Hyaline Casts Few (None-Few) per lpf Ur Culture Indicated? NO (NO) Urine Opiates Screen Positive H (Etljts=183) ng/mL Ur Barbiturates Screen Negative (Hsdxlb=397) ng/mL Ur Phencyclidine Scrn Negative (Cutoff=25) ng/mL Ur Amphetamines Screen Negative (Arfogb=8426) ng/mL U Benzodiazepines Scrn Negative (Nakqxo=636) ng/mL Urine Cocaine Screen Negative (Cutoff= 300) ng/mL U Marijuana (THC) Screen Positive H (Cutoff = 50) ng/mL - Radiology Data Radiology results reviewed: Yes I reviewed the patient's radiology results. Obstetrics Ultrasound 07/11/17 14:37 IMPRESSION: 1. Findings compatible with live intrauterine with estimated gestational age of 6 weeks 1 day. 2. Findings concerning for subchorionic hemorrhage. Close clinical follow-up with consideration for follow-up obstetric imaging as indicated is recommended. D/ / Antoni Loyola / Antoni Loyola Interpreting Provider: Antoni Loyola Dc - Dc Situation: Demographics Background: Presenting Complaint Assessment: Vital Signs, Course and respsone to treatment, Patient/Family Expectation Recommendation: Barrier(s) to disposition, Recommendation based on pending studies, treatments, or consults Dc Report Given to: Dr. Glenn Irwin Repor Time: 21:24
[2017-07-11] MEDS ORDERED: Potassium Chloride 40 MEQ, Lidocaine 1% 2 ML in D5% in Water 500 ML IVPB ONE (21:07)
[2017-07-11] MEDS ORDERED: cefTRIAXone 1,000 MG in Water for inj. (sterile) 20 ML 10 ML IVP ONE (21:23)
[2017-07-11] MEDS ORDERED: Ondansetron 4 MG/2 ML VIAL IVP PRN (21:28)
[2017-07-11] MEDS ORDERED: Pantoprazole 40 MG VIAL IVP ONE (21:30)
--- NOTE | 2017-07-11 21:32 | Emergency Department Note ---
Disposition Clinical Impression: Tobacco use, Substance abuse, Hypokalemia Qualifiers: Weeks of gestation: unspecified Qualified Code(s): Z34.90 - Encounter for supervision of normal , unspecified, unspecified trimester Nausea and vomiting Qualifiers: Vomiting type: unspecified Vomiting Intractability: non-intractable Qualified Code(s): R11.2 - Nausea with vomiting, unspecified UTI (urinary tract infection) Qualifiers: Urinary tract infection type: site unspecified Hematuria presence: without hematuria Qualified Code(s): N39.0 - Urinary tract infection, site not specified Disposition: Admitted As Inpatient Condition: Fair Referrals: NONE,PCP [Primary Care Provider] - Forms: ED Satisfaction Letter, Work/School Release Time of Disposition: 21:32 Abdominal Pain HPI - General Chief Complaint: ED Abdominal Pain Stated Complaint: nausea, abd pain, off opiods 1 weeks, + preg test Time Seen by Provider: 07/11/17 14:36 Source: patient, EMS Mode of arrival: EMS Nursing Notes Reviewed: Yes Vital Signs Reviewed: Yes - History of Present Illness HPI Narrative: This is a procedure note for central line Pain Scale: 7 - Related Data Previous Rx's Medication Instructions Recorded Ondansetron ODT [Zofran ODT] 4 mg SL Q6HR PRN #20 tab.rapdis 05/15/17 Allergies Allergy/AdvReac Type Severity Reaction Status Date / Time No Known Allergies Allergy Verified 07/11/17 14:32 Constitutional: Denies: fever Cardiovascular: Denies: chest pain Respiratory: Denies: cough, dyspnea Gastrointestinal: Reports: abdominal pain, nausea, vomiting Abdominal Pain PMH - Past Medical History Medical history: Reports: asthma, other Female Surgical History: Reports: cholecystectomy, orthopedic, other [employer] SAL[employer]ERSON history: Reports: Psychiatric history: Reports: bipolar, depression - Social History Smoking status: Current every day smoker Alcohol use: Reports: none Drug use: Reports: opiates, marijuana, IV Drug Use, prescription drug abuse Physical Exam - General Limitations: no limitations General appearance: alert, anxious Course Vital Signs Temperature 97.4 F L 07/11/17 14:28 Pulse Rate 103 07/11/17 14:28 Respiratory Rate 18 07/11/17 14:28 Blood Pressure 139/100 07/11/17 14:28 O2 Sat by Pulse Oximetry 97 07/11/17 14:28 Temperature 97.4 F L 07/11/17 14:28 Pulse Rate 67 07/11/17 19:36 Respiratory Rate 16 07/11/17 19:36 Blood Pressure 136/86 07/11/17 19:36 O2 Sat by Pulse Oximetry 98 07/11/17 19:36 Oxygen Delivery Oxygen Delivery Room Air Procedures - Central Line Placement Right IJ Central Line Inserted*: Yes Central Line Catheter Replacement*: Yes Central Line Insertion: emergent Consent Obtained: verbal consent, written consent Procedural Pause: verify patient name and date of , timeout performed per policy, john and assess the site, assemble equipment and verify supplies, perform hand hygiene Patient Placed on Monitor/Pulse Ox: Yes During the Procedure: clinician is wearing sterile gloves, cap, mask,& gown during insertion, sterile field and sterile technique are maintained, patient's face is covered with drape or mask and wearing a cap, everyone in room is wearing a mask Central Line Prep: Chlorhexidine scrub Prep the Procedure Site: apply chloraprep to the skin using a back and forth scrubbing motion, apply chloraprep for 30 seconds (upper body), 1-2 min ( femoral sites), allow prep to dry, drape the patient with a full body drape Local Anesthetic: lidocaine 1% Ultrasound Used for Placement: Yes Central Line Lumen Inserted: triple Post Procedure: sutured in place, good blood return, all ports aspirated, flushed, capped, sterile dressing applied, guide wire removed and visualized, dressing is dated Post Procedure X-Ray: tip of catheter in good position Patient Tolerated Procedure: well, no complications Complications: none Abdominal Pain - MDM Narrative Medical decision making narrative: This is a procedure note, see Dr. Montiel my senior resident's note for details concerning the patient's workup. Post chest x-ray reviewed by me shows central line in appropriate spot in SVC. No pneumothorax. - Lab Data Result diagrams: 07/11/17 16:12 07/11/17 16:48 Lab Results 07/11/17 07/11/17 07/11/17 Range/Units 16:12 16:48 16:48 WBC 16.5 H (4.3-11.1) K/mcL RBC 6.37 H (3.82-4.97) M/mcL Hgb 17.1 H (11.5-15.4) g/dL Hct 51.5 H (35.3-44.9) % MCV 80.8 L (83.0-100.0) fL MCH 26.8 L (28.0-33.3) pg MCHC 33.2 (31.6-35.5) g/dL RDW 16.5 H (11.5-14.5) % Plt Count 430 H (140-400) K/mcL MPV 10.4 (9.4-12.4) fL Immature Gran % 0.5 (0-4) % Seg Neutrophils % 74.5 % Lymphocytes % 17.7 % Monocytes % 7.0 % Eosinophils % 0.1 % Basophils % 0.2 % Neutrophils # 12.3 H (1.6-8.9) K/mcL Lymphocytes # 2.9 (0.6-4.6) K/mcL Monocytes # 1.2 (0.0-1.3) K/mcL Eosinophils # 0.0 (0.0-0.6) K/mcL Basophils # 0.0 (0.0-0.2) K/mcL Platelet Estimate Increased H (Normal) Sodium 132 L (136-145) mEq/L Potassium 2.4 L* (3.5-5.1) mEq/L Chloride 80 L (98-107) mEq/L Carbon Dioxide 38 H (23-29) mEq/L BUN 20 (6-20) mg/dL Creatinine 0.89 (0.60-1.20) mg/dL Est GFR ( Amer) > 60 (> 60) Est GFR (Non-Af Amer) > 60 (> 60) BUN/Creatinine Ratio 22 (6-26) Glucose 118 H (70-105) mg/dL Calculated Osmolality 278 L (280-300) Calcium 10.4 H (8.6-10.3) mg/dL Magnesium 2.3 (1.6-2.6) mg/dL Total Bilirubin 0.5 (0.3-1.0) mg/dL Direct Bilirubin 0.1 (0.0-0.2) mg/dL Indirect Bilirubin 0.4 (0.0-1.2) mg/dL AST 22 (13-39) Units/L ALT 36 (7-52) Units/L Alkaline Phosphatase 73 (34-104) Units/L Serum Total Protein 9.0 H (6.4-8.9) g/dL Albumin 5.3 (3.5-5.7) g/dL Globulin 3.7 H (2.4-3.5) g/dL Albumin/Globulin Ratio 1.4 (1.1-2.2) Lipase 23 (11-82) Units/L Beta HCG, Quant 03678 H (Less than 5) mIU/mL Urine Color (Yellow) Urine Clarity (Clear) Urine pH (5.0-8.0) pH Units Ur Specific [place] (1.010-1.025) Urine Protein (Neg-Trace) mg/dL Urine Glucose (UA) (Normal) mg/dL Urine Ketones (Negative) mg/dL Urine Blood (Negative) Urine Nitrite (Negative) Urine Bilirubin (Negative) Urine Urobilinogen (Normal) mg/dL Ur Leukocyte Esterase (Negative) Urine Microscopic RBC (0-3) per hpf Urine Microscopic WBC (0-3) per hpf Ur Squamous Epith Cells (None-Few) per lpf Urine Bacteria (None-Few) per hpf Hyaline Casts (None-Few) per lpf Ur Culture Indicated? (NO) Urine Opiates Screen (Jswgsf=551) ng/mL Ur Barbiturates Screen (Dlzmzm=275) ng/mL Ur Phencyclidine Scrn (Cutoff=25) ng/mL Ur Amphetamines Screen (Sylcsf=1350) ng/mL U Benzodiazepines Scrn (Yfzbkh=908) ng/mL Urine Cocaine Screen (Cutoff= 300) ng/mL U Marijuana (THC) Screen (Cutoff = 50) ng/mL 07/11/17 07/11/17 Range/Units 17:16 17:16 WBC (4.3-11.1) K/mcL RBC (3.82-4.97) M/mcL Hgb (11.5-15.4) g/dL Hct (35.3-44.9) % MCV (83.0-100.0) fL MCH (28.0-33.3) pg MCHC (31.6-35.5) g/dL RDW (11.5-14.5) % Plt Count (140-400) K/mcL MPV (9.4-12.4) fL Immature Gran % (0-4) % Seg Neutrophils % % Lymphocytes % % Monocytes % % Eosinophils % % Basophils % % Neutrophils # (1.6-8.9) K/mcL Lymphocytes # (0.6-4.6) K/mcL Monocytes # (0.0-1.3) K/mcL Eosinophils # (0.0-0.6) K/mcL Basophils # (0.0-0.2) K/mcL Platelet Estimate (Normal) Sodium (136-145) mEq/L Potassium (3.5-5.1) mEq/L Chloride (98-107) mEq/L Carbon Dioxide (23-29) mEq/L BUN (6-20) mg/dL Creatinine (0.60-1.20) mg/dL Est GFR ( Amer) (> 60) Est GFR (Non-Af Amer) (> 60) BUN/Creatinine Ratio (6-26) Glucose (70-105) mg/dL Calculated Osmolality (280-300) Calcium (8.6-10.3) mg/dL Magnesium (1.6-2.6) mg/dL Total Bilirubin (0.3-1.0) mg/dL Direct Bilirubin (0.0-0.2) mg/dL Indirect Bilirubin (0.0-1.2) mg/dL AST (13-39) Units/L ALT (7-52) Units/L Alkaline Phosphatase (34-104) Units/L Serum Total Protein (6.4-8.9) g/dL Albumin (3.5-5.7) g/dL Globulin (2.4-3.5) g/dL Albumin/Globulin Ratio (1.1-2.2) Lipase (11-82) Units/L Beta HCG, Quant (Less than 5) mIU/mL Urine Color Dark Yellow (Yellow) Urine Clarity Turbid A (Clear) Urine pH 6.0 (5.0-8.0) pH Units Ur Specific [place] > 1.030 H (1.010-1.025) Urine Protein >=300 H (Neg-Trace) mg/dL Urine Glucose (UA) Normal (Normal) mg/dL Urine Ketones Negative (Negative) mg/dL Urine Blood Trace H (Negative) Urine Nitrite Negative (Negative) Urine Bilirubin Small H (Negative) Urine Urobilinogen Normal (Normal) mg/dL Ur Leukocyte Esterase Negative (Negative) Urine Microscopic RBC 0-3 (0-3) per hpf Urine Microscopic WBC 5-15 H (0-3) per hpf Ur Squamous Epith Cells Many H (None-Few) per lpf Urine Bacteria Moderate H (None-Few) per hpf Hyaline Casts Few (None-Few) per lpf Ur Culture Indicated? NO (NO) Urine Opiates Screen Positive H (Rnsywu=579) ng/mL Ur Barbiturates Screen Negative (Zxwspj=388) ng/mL Ur Phencyclidine Scrn Negative (Cutoff=25) ng/mL Ur Amphetamines Screen Negative (Xjkauz=9272) ng/mL U Benzodiazepines Scrn Negative (Zahbir=685) ng/mL Urine Cocaine Screen Negative (Cutoff= 300) ng/mL U Marijuana (THC) Screen Positive H (Cutoff = 50) ng/mL - Radiology Data Radiology results reviewed: Yes I reviewed the patient's radiology results. Obstetrics Ultrasound 07/11/17 14:37 IMPRESSION: 1. Findings compatible with live intrauterine with estimated gestational age of 6 weeks 1 day. 2. Findings concerning for subchorionic hemorrhage. Close clinical follow-up with consideration for follow-up obstetric imaging as indicated is recommended. D/ / Antoni Loyola / Antoni Loyola Interpreting Provider: Antoni Loyola Chest X-Ray 07/11/17 21:07 IMPRESSION: No acute cardiopulmonary disease. D/ / Willy Foss MD / Willy Foss MD Interpreting Provider: Willy Fsos MD INGS: A right IJ catheter is seen with its tip in the superior vena cava. The cardiomediastinal silhouette is stable. The bilateral lung humphries are clear. There is no evidence of pleural effusion. No evidence of pneumothorax. The osseous structures are stable. The patient is status post cholecystectomy.
[2017-07-11] MEDS ORDERED: Naloxone 0.4 MG/ML INJ IVP PRN (21:47)
--- NOTE | 2017-07-11 22:00 | Internal Med History&Physical ---
<Sven Canales - Last Filed: 07/11/17 21:55> Date of Encounter: 07/11/17 Time of Encounter: 21:56 Assessment and Plan (1) Intractable nausea and vomiting Current visit: Yes Status: Acute Patient presents today with intractable nausea and vomiting for the last 6 days. Additionally, she has reported anorexia. She reports that with every she experiences episodes of hyperemesis. She was found to be hypokalemic during the workup with a potassium of 2.3. She denies any numbness , tingling, leg pain or cramps, palpitations or arrhythmias. -Continue to replace potassium -Continue to rehydrate -CBC and BMP in the a.m. -Antiemetics -Clear liquid diet as tolerated -Consult OB, spoke with signalman Na was agreed to follow. Again, thank you OB consulting, Qualifiers: Vomiting type: unspecified Qualified Code(s): R11.2 - Nausea with vomiting , unspecified (2) Hyperemesis arising during Current visit: Yes Status: Acute See plan above (3) Anorexia Current visit: Yes Status: Acute See plan above (4) Hypokalemia Current visit: Yes Status: Acute Hypokalemia secondary to hyperemesis and anorexia. Etiology unclear, may be d/ t as she reports she does this with every , could also be a withdrawal component. -40 meq IV potassium given in the ED -Rehydrate, 0.9% normal saline with 40 meq test him at 125 mL per hour -BMP in the a.m. -Continuous telemetry (5) UTI (urinary tract infection) Current visit: Yes Status: Suspected Urinalysis obtained in the ED, urine appears to possibly be infected. Urine is turbid with many bacteria present Due to continue antibiotics Macrobid orally 5 days Urine sent for culture, follow culture results Qualifiers: Urinary tract infection type: site unspecified Hematuria presence: with hematuria Qualified Code(s): N39.0 - Urinary tract infection, site not specified; R31.9 - Hematuria, unspecified; R31.9 - Hematuria, unspecified (6) Subchorionic hemorrhage in first trimester Current visit: Yes Status: Acute Findings concerning for subchorionic hemorrhage. Close clinical follow-up with consideration for follow-up obstetric imaging as indicated is recommended. -Consult to Blocking Machine Operator Second regarding both the hypokalemia and the subchorionic hemorrhage. She has agreed to follow. She reassures that there is nothing to be done except for monitoring the subchorionic hemorrhage. Thank you for your consult. Qualifiers: Fetus number: single or unspecified fetus Qualified Code(s): O41.8X10 - Other specified disorders of amniotic fluid and membranes, first trimester, not applicable or unspecified; O46.8X1 - Other antepartum hemorrhage, first trimester; O46.8X1 - Other antepartum hemorrhage, first trimester (7) Opioid withdrawal Current visit: Yes Status: Acute Patient reports that she last used opiates approximately 6 days ago. She presents today with intractable nausea and vomiting. She denies ever experiencing nausea and vomiting with withdrawal reporting she normally only gets diarrhea. There is some concern this may also be related to withdrawal. See plan above (8) Narcotic dependence Current visit: Yes Status: Acute Patient reports a narcotic dependence. Urine drug screen positive for opiates. She states her last use of Percocet was approximately 6 days ago when she found out she was . Internal Medicine - H&P: HPI Chief complaint: anorexia, N/V and LLQ pain Admitted From: Home Plans for Post Hospital Care: Home History of present illness: Ms. Diehl is a 27 year old female who presents to [facility] today with LLQ abominal pain, anorexia, hyperemesis, and hypokalemia. She is 6-weeks and 1 day gestation with a confirmed . She reports she has been experiencing these symptoms for approximately 6-days. In addition she is also reporting dark cloudy urine. Workup in the ED revealed hypokalemia with a potassium of 2.4. Additionally, her urine was very turbid and urinalysis revealed many bacteria. D/t hypokalemia, and she is being admitted as inpatient for electrolyte replacement, continuous telemetry monitoring and treatment of potential bacterial infection of her urine. Past Med Surg Social Fam HX - Past Medical History Medical history: asthma, other Psychiatric history: bipolar, depression - Past Surgical History Surgical History: cholecystectomy, knee replacement - Social History Smoking Status: Current every day smoker Smokeless Tobacco Status: No Alcohol use: none Drug use: opiates, marijuana, IV Drug Use, prescription drug abuse - Family History Mother Hx Family GI Disorders: Yes (crohns) Internal Medicine - H&P: Meds Ondansetron ODT [Zofran ODT] 4 mg SL Q6HR PRN #20 tab.rapdis 05/15/17 [Rx] 3 Allergy/AdvReac Type Severity Reaction Status Date / Time No Known Allergies Allergy Verified 07/11/17 14:32 All Systems PM: A 10-system review of systems was performed and is negative for pertinent findings except as documented above in the HPI. - Constitutional Constitutional: no chills, no fever(s), no night sweats - EENT Eyes: no change in vision, no discharge, no pain, no photophobia Ears: no ear discharge, no ear pain, no tinnitus Nose, mouth and throat: no dysphagia, no nasal discharge, no neck pain, no sore throat - Cardiovascular Cardiovascular ROS IM: no chest pain, no diaphoresis, no dyspnea, no lightheadedness, no palpitations, no syncope - Respiratory Respiratory: no cough, no dyspnea, no wheezing, no excessive phlegm production - Gastrointestinal Gastrointestinal: as per HPI, abdominal pain, nausea, vomiting, no diarrhea - Genitourinary Genitourinary: as per HPI, no change in urinary stream, no dysuria, no flank pain, no hematuria - Musculoskeletal Musculoskeletal ROS IM: no numbness, no tingling - Integumentary Integumentary IM: no rash, no unusual bruising - Neurological Neurological ROS: no confusion, no convulsions, no focal weakness, no numbness, no tingling, no tremor(s) - Constitutional Vitals: Temp Pulse Resp BP Pulse Ox 97.4 F L 67 16 136/86 98 07/11/17 14:28 07/11/17 19:36 07/11/17 19:36 07/11/17 19:36 07/11/17 19:36 General appearance: Present: cooperative, mild distress, A&O X 3, answers questions appropriately - Head Head exam: Present: atraumatic, normocephalic - Eye Eye exam: Present: PERRL, conjuntiva pink, sclera anicteric Pupils: Present: PERRL - Neck Neck exam general surgery: Present: supple, trachea midline. Absent: lymphadenopathy - Respiratory Respiratory exam: Present: CTAB. Absent: accessory muscle use, rales, rhonchi, wheezes - Cardiovascular Cardiovascular exam: Present: RRR, +S1, +S2. Absent: diastolic murmur, gallop, rubs, systolic murmur - GI/Abdominal GI/Abdominal exam: Present: normal bowel sounds, soft, no peritoneal signs. Absent: distended, tenderness - Extremities Exam Extremities exam: Present: warm, radial pulses palpable and symmetrical. Absent : calf tenderness, cyanotic, pedal edema - Neurological Exam Neurological exam: Present: CN II-XII intact, oriented X3, no focal deficits. Absent: pronater drift, facial droop, speech deficit - Skin Skin exam: Present: dry, intact Internal Med - H&P Results - Labs CBC & Chem 7: 07/11/17 16:12 07/11/17 16:48 - EKG Data -: EKG Interpreted by Myself EKG shows normal: sinus rhythm - Impressions Impressions Obstetrics Ultrasound 07/11/17 14:37 IMPRESSION: 1. Findings compatible with live intrauterine with estimated gestational age of 6 weeks 1 day. 2. Findings concerning for subchorionic hemorrhage. Close clinical follow-up with consideration for follow-up obstetric imaging as indicated is recommended. D/ / Antoni Loyola / Antoni Loyola Interpreting Provider: Antoni Loyola Chest X-Ray 07/11/17 21:07 IMPRESSION: No acute cardiopulmonary disease. D/ / Willy Foss MD / Willy Foss MD Interpreting Provider: Willy Foss MD - VTE Reasons for not Prescribing Prophylaxis: Medical contraindication <Jensen Elizabeth - Last Filed: 07/11/17 23:23> Date of Encounter: 07/11/17 Internal Medicine - H&P: HPI History of present illness: Ms. Diehl is a 27 year old female All Systems PM: A 10-system review of systems was performed and is negative for pertinent findings except as documented above in the HPI. - Constitutional Vitals: Temp Pulse Resp BP Pulse Ox 97.8 F 61 16 132/80 98 07/11/17 22:46 07/11/17 22:30 07/11/17 22:46 07/11/17 22:46 07/11/17 22:30 Internal Med - H&P Results - Labs CBC & Chem 7: 07/11/17 16:12 07/11/17 16:48 - Attending Attestation I have personally performed a face to face evaluation on this patient. I have reviewed and agree with the care plan. History and Exam by me shows: C/o 6 days hx of anorexia, nausea and emesis. To improved with PO zofran. No diarrhea. Found severe hypoK. Follows with Dr Terrell of OB. Currently 6 weeks gestation ROS with some intermittent right lower to middle quard discomfort EKG personally reviewed with rate 68, NSR General - AAO x 3 Psych - Appropriate affect/speech. No agitation Eyes - DYLAN. Eye lids intact. No scleral icterus Neuro - no focal peripheral or CN deficit on inspection Heart - Sinus. RRR. S1 and S2 present. No added HS/murmurs appreciated. No elevated JVD appreciated. Lung - Adequate air entry b/l, No overt crackles/wheezes appreciated GI - Ovoid abdomen, striae. No flank tenderness No hepatosplenomegaly/ascites. BS+ Skin - Intact. No rash/petechiae/ecchymosis. Warm extremities ROS 14 point review of systems reviewed as best as possible given presentation. Pertinent positive or negative as per HPI or otherwise reviewed as negative Hyperemesis - IV anti-emetic Severe hypokalemia - IVF with K, trial PO if able as well - repeat K in the a.m Possible UTI - cx pend - macrobid Subchorionic hemorrhage on US - d/w ED, who d/w case with OB - nothing to do, watch for now
[2017-07-11] MEDS ORDERED: Nitrofurantoin (BID) 100 MG CAPSULE PO SCH (22:30)
--- NOTE | 2017-07-11 22:37 | OB/GYN Consult Note ---
Date of Encounter: 07/11/17 Time of Encounter: 22:25 Assessment and Plan (1) Hyperemesis Current Visit: Yes Status: Acute Will treat with IV antiemetic (2) Hypokalemia Current Visit: Yes Status: Acute treatment per Medicine (3) Current Visit: Yes Status: Acute Follow up after discharge as scheduled Qualifiers: Weeks of gestation: less than 8 weeks Qualified Code(s): Z34.90 - Encounter for supervision of normal , unspecified, unspecified trimester (4) Subchorionic hemorrhage in first trimester Current Visit: Yes Status: Acute Blood type O+ Follow up ulrasound as scheduled. Qualifiers: Fetus number: single or unspecified fetus Qualified Code(s): O41.8X10 - Other specified disorders of amniotic fluid and membranes, first trimester, not applicable or unspecified; O46.8X1 - Other antepartum hemorrhage, first trimester; O46.8X1 - Other antepartum hemorrhage, first trimester History of Present Illness Consult date: 07/11/17 Reason for consult: early problem Chief complaint: Nausea and vomiting History of present illness: Patient is a 27 y/o presented to ER for nausea, vomiting and lower abdominal pain. Ultrasound reports viable IUP at 6w1d. Patient has history of polysubstance abuse. Patient is scheduled for a suppressed menses appointment with Dr. Gonzales on 07/17/17 @ 1:15pm. Patient denies any vaginal bleeding or pain at this time. Discussed POC with patient. Patient denies any questions or concerns. Will wait to start PNV due to hyperemesis. Past Med Surg Social Fam HX - Past Medical History Source: patient Medical history: asthma, other Psychiatric history: bipolar, depression - Past Surgical History Surgical History: cholecystectomy, knee replacement - Social History Smoking Status: Current every day smoker Smokeless Tobacco Status: No Alcohol use: none Drug use: opiates, marijuana, IV Drug Use, prescription drug abuse - Family History Mother Hx Family GI Disorders: Yes (crohns) Medications and Allergies Ondansetron ODT [Zofran ODT] 4 mg SL Q6HR PRN #20 tab.rapdis 05/15/17 [Rx] 3 Allergy/AdvReac Type Severity Reaction Status Date / Time No Known Allergies Allergy Verified 07/11/17 14:32 Review of Systems Genitourinary Female: no abnormal vaginal bleeding Neurological: no dizziness, no headache(s) Exam - Vital Signs Vital signs: Initial Vital Signs Temp Pulse Resp BP Pulse Ox 97.4 F L 103 18 139/100 97 07/11/17 14:28 07/11/17 14:28 07/11/17 14:28 07/11/17 14:28 07/11/17 14:28 - Constitutional Constitutional: well developed, no acute distress - HEENT HEENT: Normocephaly - Lungs Respiratory exam: CTAB - Cardiovascular Cardiovascular exam: RRR, +S1, +S2 - Abdomen Abdomen: Present: non tender - Extremities Extremities exam: full ROM, normal capillary refill, normal inspection Deep Tendon Reflex Grade: 2+ Normal Results Result Diagrams: 07/11/17 16:12 07/11/17 16:48 Abnormal lab results WBC 16.5 K/mcL (4.3-11.1) H 07/11/17 16:12 RBC 6.37 M/mcL (3.82-4.97) H 07/11/17 16:12 Hgb 17.1 g/dL (11.5-15.4) H 07/11/17 16:12 Hct 51.5 % (35.3-44.9) H 07/11/17 16:12 MCV 80.8 fL (83.0-100.0) L 07/11/17 16:12 MCH 26.8 pg (28.0-33.3) L 07/11/17 16:12 RDW 16.5 % (11.5-14.5) H 07/11/17 16:12 Plt Count 430 K/mcL (140-400) H 07/11/17 16:12 Neutrophils # 12.3 K/mcL (1.6-8.9) H 07/11/17 16:12 Platelet Estimate Increased (Normal) H 07/11/17 16:12 Sodium 132 mEq/L (136-145) L 07/11/17 16:48 Potassium 2.4 mEq/L (3.5-5.1) L* 07/11/17 16:48 Chloride 80 mEq/L (98-107) L 07/11/17 16:48 Carbon Dioxide 38 mEq/L (23-29) H 07/11/17 16:48 Glucose 118 mg/dL (70-105) H 07/11/17 16:48 Calculated Osmolality 278 (280-300) L 07/11/17 16:48 Calcium 10.4 mg/dL (8.6-10.3) H 07/11/17 16:48 Serum Total Protein 9.0 g/dL (6.4-8.9) H 07/11/17 16:48 Globulin 3.7 g/dL (2.4-3.5) H 07/11/17 16:48 Beta HCG, Quant 54982 mIU/mL (Less than 5) H 07/11/17 16:48 Urine Clarity Turbid (Clear) A 07/11/17 17:16 Ur Specific [place] > 1.030 (1.010-1.025) H 07/11/17 17:16 Urine Protein >=300 mg/dL (Neg-Trace) H 07/11/17 17:16 Urine Blood Trace (Negative) H 07/11/17 17:16 Urine Bilirubin Small (Negative) H 07/11/17 17:16 Urine Microscopic WBC 5-15 per hpf (0-3) H 07/11/17 17:16 Ur Squamous Epith Cells Many per lpf (None-Few) H 07/11/17 17:16 Urine Bacteria Moderate per hpf (None-Few) H 07/11/17 17:16 Urine Opiates Screen Positive ng/mL (Wihfvc=632) H 07/11/17 17:16 U Marijuana (THC) Screen Positive ng/mL (Cutoff = 50) H 07/11/17 17:16 All other labs normal. Consult Discharge Plan - Plan Referrals: NONE,PCP [Primary Care Provider] - Ha Gonzales MD [Partnered Physician] -
[2017-07-11] MEDS ORDERED: Scopolamine Patch 1.5 MG PATCH.TD72 TD SCH (22:45)
[2017-07-11] MEDS ORDERED: Potassium Chloride Elixir 20 MEQ/15 ML UDC PO ONE (23:20)
[2017-07-12] MEDS: 0.9 % Sodium Chloride w KCl 40 MEQ/1,000 ML MLS IVC SCH ×3 (01:24→10:05)
[2017-07-12 05:59] LABS: BUN/Creatinine Ratio 17 (6-26); Blood Urea Nitrogen 15 mg/dL (6-20); Calcium 8.5 mg/dL (8.6-10.3); Carbon Dioxide 36 mEq/L (23-29); Chloride 93 mEq/L (98-107); Glucose 102 mg/dL (70-105); Magnesium 2.1 mg/dL (1.6-2.6); Osmolality,Calculated 283 (280-300); Potassium 2.8 mEq/L (3.5-5.1); Sodium 136 mEq/L (136-145); eGFR For African Americans > 60 (> 60); eGFR For Non-African Americans > 60 (> 60)
[2017-07-12] MEDS: Nitrofurantoin (BID) 100 MG CAPSULE PO SCH ×2 (10:05→16:45)
[2017-07-12 13:00] LABS: Hematocrit 38.5 % (35.3-44.9); Hemoglobin 12.4 g/dL (11.5-15.4); Immature Platelets 5.1 % (1.1-6.1); Mean Corpuscular HGB Conc 32.2 g/dL (31.6-35.5); Mean Corpuscular Hemoglobin 26.6 pg (28.0-33.3); Mean Corpuscular Volume 82.6 fL (83.0-100.0); Mean Platelet Volume 10.2 fL (9.4-12.4); Red Blood Count 4.66 M/mcL (3.82-4.97); Red Cell Distribution Width 15.1 % (11.5-14.5)
[2017-07-12 13:19] LABS: BUN/Creatinine Ratio 14 (6-26); Blood Urea Nitrogen 11 mg/dL (6-20); Calcium 8.4 mg/dL (8.6-10.3); Carbon Dioxide 34 mEq/L (23-29); Chloride 96 mEq/L (98-107); Glucose 80 mg/dL (70-105); Osmolality,Calculated 278 (280-300); Potassium 3.1 mEq/L (3.5-5.1); Sodium 135 mEq/L (136-145); eGFR For African Americans > 60 (> 60); eGFR For Non-African Americans > 60 (> 60)
[2017-07-12 13:32] LABS: Thyroid Stimulating Hormone 0.123 mcIU/mL (0.340-5.600)
--- NOTE | 2017-07-12 14:57 | OB/GYN Consult Note ---
Date of Encounter: 07/12/17 Time of Encounter: 14:55 Assessment and Plan (1) Anorexia Current Visit: Yes Status: Acute Will correct nausea and vomiting, anticipate appetite to return with cessation of nausea (2) Hyperemesis arising during Current Visit: Yes Status: Acute I recommend that we start reglan PO scheduled and TX/PV phenergan for breakthrough nausea. May change reglan to IV if patient unable to tolerate PO reglan. Anticipate discharge home tomorrow with reglan and phenergan with follow up in the office (3) Hypokalemia Current Visit: Yes Status: Acute Medicine to follow and replace (4) Narcotic dependence Current Visit: Yes Status: Acute Follow up in office and encourage to start baby centered group. History of Present Illness Consult date: 07/11/17 Reason for consult: other (Hyperemesis) Chief complaint: Vomiting & Hypokalemia History of present illness: Patient is a 27 y/o presented to ER for nausea, vomiting and lower abdominal pain. Ultrasound reports viable IUP at 6w1d. Patient has history of polysubstance abuse. Patient is scheduled for a suppressed menses appointment with Dr. Gonzales on 07/17/17 @ 1:15pm. Patient denies any vaginal bleeding or pain at this time. Discussed POC with patient. Patient denies any questions or concerns. Will wait to start PNV due to hyperemesis. Edit: Patient is requesting reglan. She states this has helped in previous pregnancies. I recommend that we start reglan PO scheduled and TX/PV phenergan for breakthrough nausea. Past Med Surg Social Fam HX - Past Medical History Medical history: asthma, other Psychiatric history: bipolar, depression - Past Surgical History Surgical History: cholecystectomy, knee replacement - Social History Smoking Status: Current every day smoker Packs per day: 0.5 Smokeless Tobacco Status: No Alcohol use: none Drug use: opiates, marijuana, IV Drug Use, prescription drug abuse - Family History Mother Hx Family GI Disorders: Yes (crohns) Medications and Allergies Ondansetron ODT [Zofran ODT] 4 mg SL Q6HR PRN #20 tab.rapdis 05/15/17 [Rx] 3 Allergy/AdvReac Type Severity Reaction Status Date / Time No Known Allergies Allergy Verified 07/11/17 14:32 Review of Systems All Systems: reviewed and no additional remarkable complaints except as stated Constitutional: anorexia, fatigue, weakness Gastrointestinal: nausea, vomiting Exam - Vital Signs Vital signs: Initial Vital Signs Temp Pulse Resp BP Pulse Ox 97.4 F L 103 18 139/100 97 07/11/17 14:28 07/11/17 14:28 07/11/17 14:28 07/11/17 14:28 07/11/17 14:28 - Constitutional Constitutional: well developed, well nourished, no acute distress, average body habitus - HEENT HEENT: Normocephaly, Mucus Membranes Moist - Abdomen Abdomen: Present: non tender Results Result Diagrams: 07/12/17 12:48 07/12/17 12:48 Abnormal lab results WBC 11.8 K/mcL (4.3-11.1) H 07/12/17 12:48 MCV 82.6 fL (83.0-100.0) L 07/12/17 12:48 MCH 26.6 pg (28.0-33.3) L 07/12/17 12:48 RDW 15.1 % (11.5-14.5) H 07/12/17 12:48 Neutrophils # 12.3 K/mcL (1.6-8.9) H 07/11/17 16:12 Platelet Estimate Increased (Normal) H 07/11/17 16:12 Sodium 135 mEq/L (136-145) L 07/12/17 12:48 Potassium 3.1 mEq/L (3.5-5.1) L 07/12/17 12:48 Chloride 96 mEq/L (98-107) L 07/12/17 12:48 Carbon Dioxide 34 mEq/L (23-29) H 07/12/17 12:48 POC Glucose 110 (58-89) H 07/12/17 11:19 Calculated Osmolality 278 (280-300) L 07/12/17 12:48 Calcium 8.4 mg/dL (8.6-10.3) L 07/12/17 12:48 Serum Total Protein 9.0 g/dL (6.4-8.9) H 07/11/17 16:48 Globulin 3.7 g/dL (2.4-3.5) H 07/11/17 16:48 TSH 0.123 mcIU/mL (0.340-5.600) L 07/12/17 12:48 Thyroxine (T4) 11.78 mcg/dL (5.50-11.00) H 07/12/17 12:48 Free T3 4.12 pg/mL (2.50-3.90) H 07/12/17 12:48 Beta HCG, Quant 33154 mIU/mL (Less than 5) H 07/11/17 16:48 Urine Clarity Turbid (Clear) A 07/11/17 17:16 Ur Specific [place] > 1.030 (1.010-1.025) H 07/11/17 17:16 Urine Protein >=300 mg/dL (Neg-Trace) H 07/11/17 17:16 Urine Blood Trace (Negative) H 07/11/17 17:16 Urine Bilirubin Small (Negative) H 07/11/17 17:16 Urine Microscopic WBC 5-15 per hpf (0-3) H 07/11/17 17:16 Ur Squamous Epith Cells Many per lpf (None-Few) H 07/11/17 17:16 Urine Bacteria Moderate per hpf (None-Few) H 07/11/17 17:16 Urine Opiates Screen Positive ng/mL (Dmbgzl=136) H 07/11/17 17:16 U Marijuana (THC) Screen Positive ng/mL (Cutoff = 50) H 07/11/17 17:16 All other labs normal. Consult Discharge Plan - Plan Referrals: Ha Gonzales MD [Partnered Physician] - NONE,PCP [Primary Care Provider] -
[2017-07-12] MEDS ORDERED: Metoclopramide 10 MG/2 ML VIAL IVP PRN (15:01)
--- NOTE | 2017-07-12 15:23 | Internal Med Progress Note ---
Date of Encounter: 07/12/17 Time of Encounter: 15:15 - Assessment and plan (1) Nausea and vomiting during Current Visit: No Status: Acute Assessment and plan: presented with intractable nausea and vomiting for the last 6 days. Patient reports hyperemesis with previous pregnancies. Improved with symptomatic care. Tolerating regular diet without nausea/vomiting as of 07/12. Dyspneic discharge tomorrow if patient able to tolerate oral intake and potassium normal. (2) Hypokalemia Current Visit: Yes Status: Acute Assessment and plan: K 2.4; in the setting of excessive GI losses due to nausea and vomiting. Improved with replacement. Potassium 3.3 on 07/12. (3) Opioid withdrawal Current Visit: Yes Status: Acute Assessment and plan: Likely contributing to nausea vomiting and anorexia. Symptoms improving. (4) Subchorionic hemorrhage in first trimester Current Visit: Yes Status: Acute Assessment and plan: Transabdominal ultrasound concerning for subchorionic hemorrhage. No vaginal bleeding. OB following. Qualifiers: Fetus number: single or unspecified fetus Qualified Code(s): O41.8X10 - Other specified disorders of amniotic fluid and membranes, first trimester, not applicable or unspecified; O46.8X1 - Other antepartum hemorrhage, first trimester; O46.8X1 - Other antepartum hemorrhage, first trimester (5) UTI (urinary tract infection) Current Visit: Yes Status: Acute Assessment and plan: UA indicative of UTI. Due to continue antibiotics Macrobid orally 5 days. Follow urine culture and narrow accordingly. Qualifiers: Urinary tract infection type: site unspecified Hematuria presence: without hematuria Qualified Code(s): N39.0 - Urinary tract infection, site not specified (6) DVT prophylaxis Current Visit: Yes Status: Acute Assessment and plan: ambulation - Subjective Interval history: Seen and examined at bedside; patient is new to me. Information obtained form chart review and patient report. Patient is she feels significantly better and would like to advance diet if possible. Nausea has subsided and she is tolerating clear liquid diet. No abdominal pain or loose stool. No vaginal bleeding. - Constitutional Vitals: Temp Pulse Resp BP Pulse Ox 98.5 F 83 16 104/66 95 07/12/17 11:20 07/12/17 11:20 07/12/17 11:20 07/12/17 11:20 07/12/17 11:20 General appearance: Present: cooperative, mild distress, A&O X 3, answers questions appropriately - Head Head exam: Present: atraumatic, normocephalic - Eye Eye exam: Present: PERRL, conjuntiva pink, sclera anicteric Pupils: Present: PERRL - Neck Neck exam general surgery: Present: supple, trachea midline. Absent: lymphadenopathy - Respiratory Respiratory exam: Present: CTAB. Absent: accessory muscle use, rales, rhonchi, wheezes - Cardiovascular Cardiovascular exam: Present: RRR, +S1, +S2. Absent: diastolic murmur, gallop, rubs, systolic murmur - GI/Abdominal GI/Abdominal exam: Present: normal bowel sounds, soft, no peritoneal signs. Absent: distended, tenderness - Extremities Exam Extremities exam: Present: warm, radial pulses palpable and symmetrical. Absent : calf tenderness, cyanotic, pedal edema - Neurological Exam Neurological exam: Present: CN II-XII intact, oriented X3, no focal deficits. Absent: pronater drift, facial droop, speech deficit - Skin Skin exam: Present: dry, intact Internal Medicine: Result - Labs CBC & Chem 7: 07/12/17 12:48 07/12/17 12:48 Labs: Short CBC 07/12/17 Range/Units 12:48 WBC 11.8 H (4.3-11.1) K/mcL Hgb 12.4 D (11.5-15.4) g/dL Hct 38.5 (35.3-44.9) % Plt Count 378 (140-400) K/mcL BMP 07/12/17 07/12/17 05:20 12:48 Sodium 136 135 L Potassium 2.8 L 3.1 L Chloride 93 L 96 L Carbon Dioxide 36 H 34 H BUN 15 11 Creatinine 0.86 0.76 Glucose 102 80 Calcium 8.5 L 8.4 L - VTE Reasons for not Prescribing Prophylaxis: Medical contraindication Consult Discharge Plan - Plan Referrals: Ha Gonzales MD [Partnered Physician] - NONE,PCP [Primary Care Provider] -
[2017-07-13 03:45] LABS: BUN/Creatinine Ratio 16 (6-26); Blood Urea Nitrogen 12 mg/dL (6-20); Calcium 8.7 mg/dL (8.6-10.3); Carbon Dioxide 28 mEq/L (23-29); Chloride 106 mEq/L (98-107); Glucose 108 mg/dL (70-105); Osmolality,Calculated 288 (280-300); Potassium 3.5 mEq/L (3.5-5.1); Sodium 139 mEq/L (136-145); eGFR For African Americans > 60 (> 60); eGFR For Non-African Americans > 60 (> 60)
[2017-07-13 07:45] VITALS: BP 98/63
[2017-07-13] MEDS: Nitrofurantoin (BID) 100 MG CAPSULE PO SCH (08:24)
--- NOTE | 2017-07-13 11:43 | Discharge Summary ---
Date of Encounter: 07/13/17 Time of Encounter: 11:40 - Discharge Diagnosis (1) Nausea and vomiting during Priority: Primary Status: Resolved Comments: presented with intractable nausea and vomiting for the last 6 days. Patient reports hyperemesis with previous pregnancies. Improved with symptomatic care. Tolerating regular diet without nausea/vomiting at time of discharge. Discussed with OB on 07/13/17 and okay to discharge with outpatient follow-up. (2) Hypokalemia Priority: Primary Status: Resolved Comments: K 2.4; in the setting of excessive GI losses due to nausea and vomiting. Normalized with replacement. Recommend repeat CMP with PCP within one week (3) UTI (urinary tract infection) Priority: Primary Status: Ruled-out Comments: UA indicative of UTI. Urine culture not done. Discussed with OB and no need for ATB at this time. Plan to repeat UA at OB follow-up appointment. Qualifiers: Urinary tract infection type: site unspecified Hematuria presence: without hematuria Qualified Code(s): N39.0 - Urinary tract infection, site not specified (4) Opioid withdrawal Priority: Primary Status: Acute Comments: Likely contributing to nausea vomiting and anorexia. UDS positive for marijuana , opiates. Cessation advised. Symptoms resolved at time of discharge. (5) Subchorionic hemorrhage in first trimester Priority: Primary Status: Acute Comments: Transabdominal ultrasound concerning for subchorionic hemorrhage. No vaginal bleeding. Follow-up with OB outpatient. Qualifiers: Fetus number: single or unspecified fetus Qualified Code(s): O41.8X10 - Other specified disorders of amniotic fluid and membranes, first trimester, not applicable or unspecified; O46.8X1 - Other antepartum hemorrhage, first trimester; O46.8X1 - Other antepartum hemorrhage, first trimester (6) Hyperthyroidism affecting in first trimester Priority: Primary Status: Acute Comments: TSH 0.123, T4 11 0.7, T3 4.12. Possible subclinical hyperparathyroidism. Discussed with OB and will refer to endocrine. - Discharge Medications Home Medications: No Known Home Drugs 07/13/17 [History] Allergies/Adverse Reactions: 3 Allergy/AdvReac Type Severity Reaction Status Date / Time No Known Allergies Allergy Verified 07/11/17 14:32 Date of admission: 07/11/17 21:48 Primary care physician: PCP NONE Discharging clinician: Deb Miller Anticipated date of discharge: 07/13/17 - Patient Status Disposition: Home, Self-Care Condition: Good Functional capacity at discharge: independent ambulation Overall status at discharge: patient is back to baseline - Discharge Instructions Instructions: Induced Thyroid Disorders (GEN) Follow Up With: Ha Gonzales MD [Partnered Physician] - NONE,PCP [Primary Care Provider] - Additional Instructions: Please follow up with OB as previously planned. Please follow-up with your PCP within 1-2 weeks. Follow-up with endocrinology for abnormal TSH level. - Diet and Activity Activity: increase activity as tolerated Diet: advance to your usual diet Interval History: Seen and examined at bedside. Patient says she feels back to baseline elected discharge home today. She is tolerating a regular diet, no nausea vomiting or diarrhea. No dysuria. Discussed with Annalisa OB gate guard; reviewed UA and okay to stop ATB at discharge. Plan to repeat UA at OB appointment and treatment at that time if indicated. Hospital course: See assessment and plan for hospital course - Time Spent with Patient Total time spent providing and/or coordinating discharge services: - Constitutional Vitals: Temp Pulse Resp BP Pulse Ox 98.0 F 62 16 98/63 96 07/13/17 07:44 07/13/17 07:44 07/13/17 07:44 07/13/17 07:44 07/13/17 07:44 General appearance: Present: cooperative, A&O X 3, answers questions appropriately - Head Head exam: Present: atraumatic, normocephalic - Eye Eye exam: Present: PERRL, conjuntiva pink, sclera anicteric Pupils: Present: PERRL - Neck Neck exam general surgery: Present: supple, trachea midline. Absent: lymphadenopathy - Respiratory Respiratory exam: Present: CTAB. Absent: accessory muscle use, rales, rhonchi, wheezes - Cardiovascular Cardiovascular exam: Present: RRR, +S1, +S2. Absent: diastolic murmur, gallop, rubs, systolic murmur - GI/Abdominal GI/Abdominal exam: Present: normal bowel sounds, soft, no peritoneal signs. Absent: distended, tenderness - Extremities Exam Extremities exam: Present: warm, radial pulses palpable and symmetrical. Absent : calf tenderness, cyanotic, pedal edema - Neurological Exam Neurological exam: Present: CN II-XII intact, oriented X3, no focal deficits. Absent: pronater drift, facial droop, speech deficit - Skin Skin exam: Present: dry, intact - VTE Reasons for not Prescribing Prophylaxis: Medical contraindication
--- NOTE | 2017-07-13 16:39 | Electrocardiograph Report ---
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
== END 2017-07-13 12:50 | disposition home or self-care (01) | DRG 566 ==
LOC: EMEROO 14:25 → 3BNU 14:25
PROVIDERS: ADMIT Internal Medicine Hematology & Oncology; ATTEND Registered Nurse

== ENCOUNTER 2017-11-02 04:26 | Observation (INO) ==
[2017-11-02] MEDS ORDERED: Neosporin OINT 1 APPL PACKET TP ONE (04:36)
[2017-11-02] MEDS ORDERED: 0.9 % Sodium Chloride 1,000 ML IVC ONE ×2 (04:47→06:19)
--- NOTE | 2017-11-02 04:50 | Emergency Department Note ---
Disposition Clinical Impression: Nausea and vomiting during Disposition: Still a Patient Condition: Good Forms: ED Satisfaction Letter Nausea/Vomiting/Diarrhea HPI - General Chief complaint: ED Nausea/Vomiting/Diarrhea Stated complaint: N/V Source: patient, EMS Limitations: no limitations Nursing Notes Reviewed: Yes Vital Signs Reviewed: Yes - History of Present Illness HPI Narrative: This is a 27 year-old G4-P3 at 24 weeks gestation who presents with nausea, vomiting, and diarrhea. She reports vomiting throughout this , but the vomiting has been severe for the past 8 hours, with nonbloody, nonbilious emesis every hour. She also reports 5 episodes of watery diarrhea. She denies any associated fever, abdominal pain, or urinary symptoms. She received some Zofran prior to arrival, and she says that she's feeling better. Pt Subjective Complaint: nausea, vomiting, diarrhea Onset (ago): hour(s) (8) Description of emesis: watery Description of Diarrhea: water Number of episodes: 5 Associated Abdominal Pain: No Improves with: nothing Worsens with: nonthing Associated symptoms: Reports: nausea/vomiting. Denies: chest pain, cough, fever /chills, headaches, dysuria, shortness of breath, syncope, weakness - Related Data Home Medications Medication Instructions Recorded Confirmed No Known Home Drugs 07/13/17 07/13/17 Allergies Allergy/AdvReac Type Severity Reaction Status Date / Time No Known Allergies Allergy Verified 07/11/17 14:32 All systems ED: reviewed and negative except as stated. Constitutional: Denies: fever Cardiovascular: Denies: chest pain Respiratory: Denies: dyspnea Gastrointestinal: Reports: as per HPI, nausea, vomiting, diarrhea. 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 Absent: scleral icterus - ENT ENT exam: normal exam, mucous membranes dry - Neck Neck exam: Present: normal inspection - Respiratory Respiratory exam: Present: normal lung sounds bilaterally. Absent: respiratory distress - Cardiovascular Cardiovascular exam: Present: regular rate, normal rhythm, normal heart sounds - Abdominal Exam Abdominal exam: Present: soft, Non-Tender, normal bowel sounds. Absent: guarding, rigidity - Extremities Exam Extremities exam: Present: normal inspection. Absent: calf tenderness - Neurological Exam Neurological exam: Present: alert, oriented X3. Absent: motor sensory deficit - Psychiatric Psychiatric exam: Present: normal affect, normal mood - Skin Skin exam: Present: warm, dry, intact Course - Reevaluation(s) Reevaluation #1: Patient has not had further vomiting but still feels nauseated. IVF infusing slowly. Time: 06:22 Vital Signs Temperature 98.7 F 11/02/17 04:28 Pulse Rate 63 11/02/17 04:28 Respiratory Rate 16 11/02/17 04:28 Blood Pressure 100/68 11/02/17 04:28 O2 Sat by Pulse Oximetry 100 11/02/17 04:28 Temperature 98.7 F 11/02/17 04:28 Pulse Rate 67 11/02/17 06:40 Respiratory Rate 20 11/02/17 06:40 Blood Pressure 147/92 11/02/17 06:40 O2 Sat by Pulse Oximetry 100 11/02/17 04:28 Oxygen Delivery Oxygen Delivery Room Air Nausea/Vomiting/Diarrhea - Lab Data Result diagrams: 11/02/17 05:22 11/02/17 05:22 Lab Results 11/02/17 11/02/17 11/02/17 Range/Units 05:22 05:22 05:22 WBC 11.4 H (4.3-11.1) K/mcL RBC 4.29 (3.82-4.97) M/mcL Hgb 12.7 (11.5-15.4) g/dL Hct 37.0 (35.3-44.9) % MCV 86.2 (83.0-100.0) fL MCH 29.6 (28.0-33.3) pg MCHC 34.3 (31.6-35.5) g/dL RDW 15.8 H (11.5-14.5) % Plt Count 431 H (140-400) K/mcL MPV 10.6 (9.4-12.4) fL Immature Gran % 0.5 (0-4) % Seg Neutrophils % 81.8 % Lymphocytes % 15.4 % Monocytes % 2.1 % Eosinophils % 0.1 % Basophils % 0.1 % Neutrophils # 9.4 H (1.6-8.9) K/mcL Lymphocytes # 1.8 (0.6-4.6) K/mcL Monocytes # 0.2 (0.0-1.3) K/mcL Eosinophils # 0.0 (0.0-0.6) K/mcL Basophils # 0.0 (0.0-0.2) K/mcL Sodium 137 (136-145) mEq/L Potassium 3.4 L (3.5-5.1) mEq/L Chloride 104 (98-107) mEq/L Carbon Dioxide 21 L (23-29) mEq/L BUN 9 (6-20) mg/dL Creatinine 0.51 L (0.60-1.20) mg/dL Est GFR ( Amer) > 60 (> 60) Est GFR (Non-Af Amer) > 60 (> 60) BUN/Creatinine Ratio 18 (6-26) Glucose 138 H (70-105) mg/dL Calculated Osmolality 285 (280-300) Calcium 9.5 (8.6-10.3) mg/dL Beta-Hydroxybutyric Acd 1.63 H (0.02-0.27) mmol/L Ur Specimen Adequacy Urine Color (Yellow) Urine Clarity (Clear) Urine pH (5.0-8.0) pH Units Ur Specific [place] (1.010-1.025) Urine Protein (Neg-Trace) mg/dL Urine Glucose (UA) (Normal) mg/dL Urine Ketones (Negative) mg/dL Urine Blood (Negative) Urine Nitrite (Negative) Urine Bilirubin (Negative) Urine Urobilinogen (Normal) mg/dL Ur Leukocyte Esterase (Negative) Urine Microscopic RBC (0-3) per hpf Urine Microscopic WBC (0-3) per hpf Ur Squamous Epith Cells (None-Few) per lpf Urine Bacteria (None-Few) per hpf Hyaline Casts (None-Few) per lpf Ur Culture Indicated? (NO) 11/02/17 Range/Units 05:40 WBC (4.3-11.1) K/mcL RBC (3.82-4.97) M/mcL Hgb (11.5-15.4) g/dL Hct (35.3-44.9) % MCV (83.0-100.0) fL MCH (28.0-33.3) pg MCHC (31.6-35.5) g/dL RDW (11.5-14.5) % Plt Count (140-400) K/mcL MPV (9.4-12.4) fL Immature Gran % (0-4) % Seg Neutrophils % % Lymphocytes % % Monocytes % % Eosinophils % % Basophils % % Neutrophils # (1.6-8.9) K/mcL Lymphocytes # (0.6-4.6) K/mcL Monocytes # (0.0-1.3) K/mcL Eosinophils # (0.0-0.6) K/mcL Basophils # (0.0-0.2) K/mcL Sodium (136-145) mEq/L Potassium (3.5-5.1) mEq/L Chloride (98-107) mEq/L Carbon Dioxide (23-29) mEq/L BUN (6-20) mg/dL Creatinine (0.60-1.20) mg/dL Est GFR ( Amer) (> 60) Est GFR (Non-Af Amer) (> 60) BUN/Creatinine Ratio (6-26) Glucose (70-105) mg/dL Calculated Osmolality (280-300) Calcium (8.6-10.3) mg/dL Beta-Hydroxybutyric Acd (0.02-0.27) mmol/L Ur Specimen Adequacy See below A Urine Color Dark Yellow (Yellow) Urine Clarity Cloudy A (Clear) Urine pH 5.5 (5.0-8.0) pH Units Ur Specific [place] 1.026 H (1.010-1.025) Urine Protein 30 H (Neg-Trace) mg/dL Urine Glucose (UA) Normal (Normal) mg/dL Urine Ketones >=160 H (Negative) mg/dL Urine Blood Negative (Negative) Urine Nitrite Negative (Negative) Urine Bilirubin Negative (Negative) Urine Urobilinogen Normal (Normal) mg/dL Ur Leukocyte Esterase Negative (Negative) Urine Microscopic RBC 0-3 (0-3) per hpf Urine Microscopic WBC 0-3 (0-3) per hpf Ur Squamous Epith Cells Many H (None-Few) per lpf Urine Bacteria Few (None-Few) per hpf Hyaline Casts None Seen (None-Few) per lpf Ur Culture Indicated? NO (NO)
[2017-11-02] MEDS ORDERED: *HR* Promethazine 25 MG/ML VIAL IVP ONE (05:15)
[2017-11-02 05:38] LABS: Basophils % 0.1 %; Eosinophils % 0.1 %; Hemoglobin 12.7 g/dL (11.5-15.4); Immature Granulocytes % 0.5 % (0-4); Lymphocytes # 1.8 K/mcL (0.6-4.6); Lymphocytes % 15.4 %; Mean Corpuscular HGB Conc 34.3 g/dL (31.6-35.5); Mean Corpuscular Hemoglobin 29.6 pg (28.0-33.3); Mean Corpuscular Volume 86.2 fL (83.0-100.0); Mean Platelet Volume 10.6 fL (9.4-12.4); Monocytes # 0.2 K/mcL (0.0-1.3); Monocytes % 2.1 %; Neutrophils # 9.4 K/mcL (1.6-8.9); Platelet Count 431 K/mcL (140-400); Red Blood Count 4.29 M/mcL (3.82-4.97); Red Cell Distribution Width 15.8 % (11.5-14.5); Segmented Neutrophils % 81.8 %
[2017-11-02 05:53] LABS: BUN/Creatinine Ratio 18 (6-26); Blood Urea Nitrogen 9 mg/dL (6-20); Calcium 9.5 mg/dL (8.6-10.3); Carbon Dioxide 21 mEq/L (23-29); Chloride 104 mEq/L (98-107); Glucose 138 mg/dL (70-105); Osmolality,Calculated 285 (280-300); Potassium 3.4 mEq/L (3.5-5.1); Sodium 137 mEq/L (136-145); eGFR For African Americans > 60 (> 60); eGFR For Non-African Americans > 60 (> 60)
[2017-11-02 06:03] LABS: Bilirubin,Urine Negative (Negative); Blood,Urine Negative (Negative); Clarity,Urine Cloudy (Clear); Color,Urine Dark Yellow (Yellow); Glucose,Urine (UA) Normal (Normal); Ketones,Urine >=160 mg/dL (Negative); Leukocyte Esterase,Urine Negative (Negative); Nitrite,Urine Negative (Negative); PH,Urine 5.5 pH Units (5.0-8.0); Protein,Urine 30 mg/dL (Neg-Trace); Specific Gravity,Urine 1.026 (1.010-1.025); Urobilinogen,Urine Normal (Normal)
[2017-11-02 06:08] LABS: Squamous Epithelial Cell,Urine Many per lpf (None-Few)
[2017-11-02 06:09] LABS: Bacteria,Urine Few per hpf (None-Few); Hyaline Casts,Urine None Seen per lpf (None-Few); RBC,Urine 0-3 per hpf (0-3); WBC,Urine 0-3 per hpf (0-3)
[2017-11-02] MEDS ORDERED: *HR* Dextrose 50 % in Water (Syg) 50 ML SYRINGE IVP ONE (06:22)
[2017-11-02] MEDS ORDERED: Potassium Chloride Elixir 20 MEQ/15 ML UDC PO ONE (06:26)
[2017-11-02] MEDS ORDERED: Prochlorperazine 10 MG/2 ML VIAL IVP ONE (07:41)
--- NOTE | 2017-11-02 07:50 | Emergency Department Note ---
Disposition Clinical Impression: Nausea and vomiting during Intractable nausea and vomiting Qualifiers: Vomiting type: unspecified Qualified Code(s): R11.2 - Nausea with vomiting, unspecified Disposition: Admitted As Inpatient Condition: Undetermined Referrals: NONE,PCP [Primary Care Provider] - Forms: ED Satisfaction Letter Time of Disposition: 08:38 Nausea/Vomiting/Diarrhea HPI - General Chief complaint: ED Nausea/Vomiting/Diarrhea Stated complaint: N/V Time Seen by Provider: 11/02/17 07:24 Source: patient, EMS Mode of arrival: EMS Limitations: no limitations Nursing Notes Reviewed: Yes Vital Signs Reviewed: Yes - History of Present Illness HPI Narrative: 27-year-old female, G4, P3, arrives to the emergency department with complaint of nausea and vomiting that started roughly 12 hours ago. The patient states that she has had a large amount of nausea and vomiting during all of her . The patient states that she had roughly one episode of vomiting every hour over the course of the first 6 hours. She also 5 episodes of watery diarrhea. The vomit was nonbilious and nonbloody. Diarrhea was nonbloody as well. Patient's was seen by the night team physician. Was administered Zofran which she has taken in the past. The patient was also administered 2 L of IV fluids. She states initially she was feeling better but now states that she has continued to express a large amount of nausea without vomiting this time. Patient states she is feeling "miserable". Patient denies any abdominal pain, cramping or vaginal discharge or bleeding. Pt Subjective Complaint: nausea, vomiting, diarrhea Description of emesis: watery Associated Abdominal Pain: No Improves with: nothing Worsens with: nonthing Associated symptoms: Reports: nausea/vomiting. Denies: chest pain, cough, fever /chills, headaches, dysuria, shortness of breath, syncope, weakness - Related Data Home Medications Medication Instructions Recorded Confirmed No Known Home Drugs 07/13/17 07/13/17 Allergies Allergy/AdvReac Type Severity Reaction Status Date / Time No Known Allergies Allergy Verified 07/11/17 14:32 Constitutional: Denies: fever Cardiovascular: Denies: chest pain Respiratory: Denies: dyspnea Gastrointestinal: Reports: as per HPI, nausea, vomiting, diarrhea. Denies: abdominal pain, hematemesis, melena, hematochezia Genitourinary: Denies: dysuria Past Medical History - Past Medical History Attestation: Yes The following information was validated with the patient. Source: patient Medical history: Reports: asthma, other Surgical history: Reports: cholecystectomy, knee replacement Psychiatric history: Reports: bipolar, depression [employer] history: Reports: : 4 Para: 3 Ab: 0 - Social History Smoking Status: Current every day smoker Smokeless Tobacco Status: No Alcohol use: Reports: none Drug use: Reports: opiates, marijuana, IV Drug Use, prescription drug abuse Physical Exam - General Limitations: no limitations General appearance: alert, in no apparent distress - Head Head exam: atraumatic, normocephalic, normal inspection - Eye Eye exam: Present: normal appearance, PERRL, EOMI - ENT ENT exam: normal exam, normal oropharynx, mucous membranes moist - Neck Neck exam: Present: normal inspection, full ROM, trachea midline - Chest Chest inspection: Present: normal inspection, symmetric chest wall rise - Respiratory Respiratory exam: Present: normal lung sounds bilaterally - Cardiovascular Cardiovascular exam: Present: regular rate, normal rhythm, normal heart sounds - Abdominal Exam Abdominal exam: Present: soft, Non-Tender. Absent: tenderness, distention, guarding, rebound, rigidity - Extremities Exam Extremities exam: Present: normal inspection, full ROM. Absent: tenderness, pedal edema - Back Exam Back exam: Present: normal inspection, full ROM. Absent: tenderness - Neurological Exam Neurological exam: Present: alert, oriented X3 - Skin Skin exam: Present: warm, dry, intact, normal color Course - Reevaluation(s) Reevaluation #1: Patient received IV Compazine here in the emergency department after already receiving 2 L IV fluid and Phenergan. She also received Zofran in route. The patient states she just vomited again. Given the patient's large amount of ketones on urinalysis as well as her continued nausea and vomiting associated with the intractable nature of it, we will admit the patient to the hospital for further care workup. OB will be consulted at this time. Time: 08:33 Vital Signs Temperature 98.7 F 11/02/17 04:28 Pulse Rate 63 11/02/17 04:28 Respiratory Rate 16 11/02/17 04:28 Blood Pressure 100/68 11/02/17 04:28 O2 Sat by Pulse Oximetry 100 11/02/17 04:28 Temperature 98.7 F 11/02/17 04:28 Pulse Rate 67 11/02/17 06:40 Respiratory Rate 20 11/02/17 06:40 Blood Pressure 147/92 11/02/17 06:40 O2 Sat by Pulse Oximetry 100 11/02/17 04:28 Oxygen Delivery Oxygen Delivery Room Air Nausea/Vomiting/Diarrhea - MDM Narrative Medical decision making narrative: Patient is experiencing intractable nausea and vomiting despite 3 different antiemetics as well as 2 L IV fluids. She had a large amount of ketones noted on her urine as well as in her blood. Given the patient's workup and continued nausea and vomiting, we will admit the patient to the [employer] service. The patient will be accepted by Annalisa Irwin on behalf of Dr. Jameson. No further questions or concerns noted the patient was notified and agrees to plan of care. - Lab Data Lab results reviewed: Yes I reviewed the patient's lab results. Result diagrams: 11/02/17 05:22 11/02/17 05:22 Lab Results 11/02/17 11/02/17 11/02/17 Range/Units 05:22 05:22 05:22 WBC 11.4 H (4.3-11.1) K/mcL RBC 4.29 (3.82-4.97) M/mcL Hgb 12.7 (11.5-15.4) g/dL Hct 37.0 (35.3-44.9) % MCV 86.2 (83.0-100.0) fL MCH 29.6 (28.0-33.3) pg MCHC 34.3 (31.6-35.5) g/dL RDW 15.8 H (11.5-14.5) % Plt Count 431 H (140-400) K/mcL MPV 10.6 (9.4-12.4) fL Immature Gran % 0.5 (0-4) % Seg Neutrophils % 81.8 % Lymphocytes % 15.4 % Monocytes % 2.1 % Eosinophils % 0.1 % Basophils % 0.1 % Neutrophils # 9.4 H (1.6-8.9) K/mcL Lymphocytes # 1.8 (0.6-4.6) K/mcL Monocytes # 0.2 (0.0-1.3) K/mcL Eosinophils # 0.0 (0.0-0.6) K/mcL Basophils # 0.0 (0.0-0.2) K/mcL Sodium 137 (136-145) mEq/L Potassium 3.4 L (3.5-5.1) mEq/L Chloride 104 (98-107) mEq/L Carbon Dioxide 21 L (23-29) mEq/L BUN 9 (6-20) mg/dL Creatinine 0.51 L (0.60-1.20) mg/dL Est GFR ( Amer) > 60 (> 60) Est GFR (Non-Af Amer) > 60 (> 60) BUN/Creatinine Ratio 18 (6-26) Glucose 138 H (70-105) mg/dL Calculated Osmolality 285 (280-300) Calcium 9.5 (8.6-10.3) mg/dL Beta-Hydroxybutyric Acd 1.63 H (0.02-0.27) mmol/L Ur Specimen Adequacy Urine Color (Yellow) Urine Clarity (Clear) Urine pH (5.0-8.0) pH Units Ur Specific [place] (1.010-1.025) Urine Protein (Neg-Trace) mg/dL Urine Glucose (UA) (Normal) mg/dL Urine Ketones (Negative) mg/dL Urine Blood (Negative) Urine Nitrite (Negative) Urine Bilirubin (Negative) Urine Urobilinogen (Normal) mg/dL Ur Leukocyte Esterase (Negative) Urine Microscopic RBC (0-3) per hpf Urine Microscopic WBC (0-3) per hpf Ur Squamous Epith Cells (None-Few) per lpf Urine Bacteria (None-Few) per hpf Hyaline Casts (None-Few) per lpf Ur Culture Indicated? (NO) 11/02/17 Range/Units 05:40 WBC (4.3-11.1) K/mcL RBC (3.82-4.97) M/mcL Hgb (11.5-15.4) g/dL Hct (35.3-44.9) % MCV (83.0-100.0) fL MCH (28.0-33.3) pg MCHC (31.6-35.5) g/dL RDW (11.5-14.5) % Plt Count (140-400) K/mcL MPV (9.4-12.4) fL Immature Gran % (0-4) % Seg Neutrophils % % Lymphocytes % % Monocytes % % Eosinophils % % Basophils % % Neutrophils # (1.6-8.9) K/mcL Lymphocytes # (0.6-4.6) K/mcL Monocytes # (0.0-1.3) K/mcL Eosinophils # (0.0-0.6) K/mcL Basophils # (0.0-0.2) K/mcL Sodium (136-145) mEq/L Potassium (3.5-5.1) mEq/L Chloride (98-107) mEq/L Carbon Dioxide (23-29) mEq/L BUN (6-20) mg/dL Creatinine (0.60-1.20) mg/dL Est GFR ( Amer) (> 60) Est GFR (Non-Af Amer) (> 60) BUN/Creatinine Ratio (6-26) Glucose (70-105) mg/dL Calculated Osmolality (280-300) Calcium (8.6-10.3) mg/dL Beta-Hydroxybutyric Acd (0.02-0.27) mmol/L Ur Specimen Adequacy See below A Urine Color Dark Yellow (Yellow) Urine Clarity Cloudy A (Clear) Urine pH 5.5 (5.0-8.0) pH Units Ur Specific [place] 1.026 H (1.010-1.025) Urine Protein 30 H (Neg-Trace) mg/dL Urine Glucose (UA) Normal (Normal) mg/dL Urine Ketones >=160 H (Negative) mg/dL Urine Blood Negative (Negative) Urine Nitrite Negative (Negative) Urine Bilirubin Negative (Negative) Urine Urobilinogen Normal (Normal) mg/dL Ur Leukocyte Esterase Negative (Negative) Urine Microscopic RBC 0-3 (0-3) per hpf Urine Microscopic WBC 0-3 (0-3) per hpf Ur Squamous Epith Cells Many H (None-Few) per lpf Urine Bacteria Few (None-Few) per hpf Hyaline Casts None Seen (None-Few) per lpf Ur Culture Indicated? NO (NO)
--- NOTE | 2017-11-02 07:58 | Emergency Department Note ---
Disposition Clinical Impression: Nausea and vomiting during Disposition: Still a Patient Condition: Good Referrals: NONE,PCP [Primary Care Provider] - Forms: ED Satisfaction Letter General Adult HPI - General Chief complaint: ED Nausea/Vomiting/Diarrhea Stated complaint: N/V Time Seen by Provider: 11/02/17 07:24 Source: patient, EMS Mode of arrival: EMS Limitations: no limitations - History of Present Illness Pain Scale: 0 - Related Data Home Medications Medication Instructions Recorded Confirmed No Known Home Drugs 07/13/17 07/13/17 Allergies Allergy/AdvReac Type Severity Reaction Status Date / Time No Known Allergies Allergy Verified 07/11/17 14:32 Constitutional: Denies: fever Cardiovascular: Denies: chest pain Respiratory: Denies: dyspnea Gastrointestinal: Reports: as per HPI, nausea, vomiting, diarrhea. Denies: abdominal pain, hematemesis, melena, hematochezia Genitourinary: Denies: dysuria Past Medical History - Past Medical History Medical history: Reports: asthma, other Surgical history: Reports: cholecystectomy, knee replacement Psychiatric history: Reports: bipolar, depression [employer] B[employer] history: Reports: : 4 Para: 3 Ab: 0 - Social History Smoking Status: Current every day smoker Smokeless Tobacco Status: No Alcohol use: Reports: none Drug use: Reports: opiates, marijuana, IV Drug Use, prescription drug abuse Physical Exam - General Limitations: no limitations General appearance: alert, in no apparent distress Course Vital Signs Temperature 98.7 F 11/02/17 04:28 Pulse Rate 63 11/02/17 04:28 Respiratory Rate 16 11/02/17 04:28 Blood Pressure 100/68 11/02/17 04:28 O2 Sat by Pulse Oximetry 100 11/02/17 04:28 Temperature 98.7 F 11/02/17 04:28 Pulse Rate 67 11/02/17 06:40 Respiratory Rate 20 11/02/17 06:40 Blood Pressure 147/92 11/02/17 06:40 O2 Sat by Pulse Oximetry 100 11/02/17 04:28 Oxygen Delivery Oxygen Delivery Room Air Medical Decision Making - Lab Data Result diagrams: 11/02/17 05:22 11/02/17 05:22 Lab Results 11/02/17 11/02/17 11/02/17 Range/Units 05:22 05:22 05:22 WBC 11.4 H (4.3-11.1) K/mcL RBC 4.29 (3.82-4.97) M/mcL Hgb 12.7 (11.5-15.4) g/dL Hct 37.0 (35.3-44.9) % MCV 86.2 (83.0-100.0) fL MCH 29.6 (28.0-33.3) pg MCHC 34.3 (31.6-35.5) g/dL RDW 15.8 H (11.5-14.5) % Plt Count 431 H (140-400) K/mcL MPV 10.6 (9.4-12.4) fL Immature Gran % 0.5 (0-4) % Seg Neutrophils % 81.8 % Lymphocytes % 15.4 % Monocytes % 2.1 % Eosinophils % 0.1 % Basophils % 0.1 % Neutrophils # 9.4 H (1.6-8.9) K/mcL Lymphocytes # 1.8 (0.6-4.6) K/mcL Monocytes # 0.2 (0.0-1.3) K/mcL Eosinophils # 0.0 (0.0-0.6) K/mcL Basophils # 0.0 (0.0-0.2) K/mcL Sodium 137 (136-145) mEq/L Potassium 3.4 L (3.5-5.1) mEq/L Chloride 104 (98-107) mEq/L Carbon Dioxide 21 L (23-29) mEq/L BUN 9 (6-20) mg/dL Creatinine 0.51 L (0.60-1.20) mg/dL Est GFR ( Amer) > 60 (> 60) Est GFR (Non-Af Amer) > 60 (> 60) BUN/Creatinine Ratio 18 (6-26) Glucose 138 H (70-105) mg/dL Calculated Osmolality 285 (280-300) Calcium 9.5 (8.6-10.3) mg/dL Beta-Hydroxybutyric Acd 1.63 H (0.02-0.27) mmol/L Ur Specimen Adequacy Urine Color (Yellow) Urine Clarity (Clear) Urine pH (5.0-8.0) pH Units Ur Specific [place] (1.010-1.025) Urine Protein (Neg-Trace) mg/dL Urine Glucose (UA) (Normal) mg/dL Urine Ketones (Negative) mg/dL Urine Blood (Negative) Urine Nitrite (Negative) Urine Bilirubin (Negative) Urine Urobilinogen (Normal) mg/dL Ur Leukocyte Esterase (Negative) Urine Microscopic RBC (0-3) per hpf Urine Microscopic WBC (0-3) per hpf Ur Squamous Epith Cells (None-Few) per lpf Urine Bacteria (None-Few) per hpf Hyaline Casts (None-Few) per lpf Ur Culture Indicated? (NO) 11/02/17 Range/Units 05:40 WBC (4.3-11.1) K/mcL RBC (3.82-4.97) M/mcL Hgb (11.5-15.4) g/dL Hct (35.3-44.9) % MCV (83.0-100.0) fL MCH (28.0-33.3) pg MCHC (31.6-35.5) g/dL RDW (11.5-14.5) % Plt Count (140-400) K/mcL MPV (9.4-12.4) fL Immature Gran % (0-4) % Seg Neutrophils % % Lymphocytes % % Monocytes % % Eosinophils % % Basophils % % Neutrophils # (1.6-8.9) K/mcL Lymphocytes # (0.6-4.6) K/mcL Monocytes # (0.0-1.3) K/mcL Eosinophils # (0.0-0.6) K/mcL Basophils # (0.0-0.2) K/mcL Sodium (136-145) mEq/L Potassium (3.5-5.1) mEq/L Chloride (98-107) mEq/L Carbon Dioxide (23-29) mEq/L BUN (6-20) mg/dL Creatinine (0.60-1.20) mg/dL Est GFR ( Amer) (> 60) Est GFR (Non-Af Amer) (> 60) BUN/Creatinine Ratio (6-26) Glucose (70-105) mg/dL Calculated Osmolality (280-300) Calcium (8.6-10.3) mg/dL Beta-Hydroxybutyric Acd (0.02-0.27) mmol/L Ur Specimen Adequacy See below A Urine Color Dark Yellow (Yellow) Urine Clarity Cloudy A (Clear) Urine pH 5.5 (5.0-8.0) pH Units Ur Specific [place] 1.026 H (1.010-1.025) Urine Protein 30 H (Neg-Trace) mg/dL Urine Glucose (UA) Normal (Normal) mg/dL Urine Ketones >=160 H (Negative) mg/dL Urine Blood Negative (Negative) Urine Nitrite Negative (Negative) Urine Bilirubin Negative (Negative) Urine Urobilinogen Normal (Normal) mg/dL Ur Leukocyte Esterase Negative (Negative) Urine Microscopic RBC 0-3 (0-3) per hpf Urine Microscopic WBC 0-3 (0-3) per hpf Ur Squamous Epith Cells Many H (None-Few) per lpf Urine Bacteria Few (None-Few) per hpf Hyaline Casts None Seen (None-Few) per lpf Ur Culture Indicated? NO (NO) Attestation Statement - Attestation Attestation: I examined this patient and my medical decision-making was reviewed with the Resident Physician. I agree with the documented findings, disposition and treatment plan as described except to the extent set forth below. 27 year old female presnte to the ED with complaints of NV and states taht she is currenlty 24 weeks and that she had this problem in the past befoer and has been admitted due to it. Patient states that her OBGYN is Dr. Gonzales. confirmed IUP. No abdominal/vaginal pain. Labwork is unremarkable. She is still experienicng nausea and vomitting and will try another dose of medications. If she has not had relief we will consider admitting to OBGYN for symptomatic relief.
[2017-11-02] MEDS ORDERED: Ondansetron 4 MG/2 ML VIAL IVP PRN (09:26)
[2017-11-02] MEDS ORDERED: Thiamine (B-1) 100 MG in Ringers Solution, Lactated 1,000 ML IVPB SCH (09:30)
[2017-11-02] MEDS ORDERED: D5% in 0.45% NACL w KCl 20 MEQ/1,000 ML MLS IVC SCH (09:30)
[2017-11-02 09:50] VITALS: BP 102/68
--- NOTE | 2017-11-02 09:56 | OB/GYN History & Physical ---
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 History of Present Illness Chief complaint: nausea and vomiting HPI: Ms. Diehl is a 27 year old female at 23 weeks and 4 days gestation with an estimated date of of 02/25/18 dated by ultrasound. She is being admitted from the ER for intractable nausea and vomiting. She states she began vomiting last night around 8 PM and has not been able to stop. She presents to the ER during the middle of the night and was given a fluid bolus, Zofran IV push, Phenergan IV push, and Compazine IV push. She states none of these medications have helped her stop vomiting. She denies leakage of fluid, contractions, vaginal bleeding. She endorses good movement. Past Med Surg Social Fam HX - Past Medical History Medical history: asthma, other Additional medical history: factor 5 Psychiatric history: bipolar, depression - Past Surgical History Surgical History: cholecystectomy, knee replacement Additional surgical history: right knee surgery - Social History Smoking Status: Current every day smoker Smokeless Tobacco Status: No Alcohol use: none Drug use: opiates, marijuana, IV Drug Use, prescription drug abuse - Family History Mother Hx Family GI Disorders: Yes (crohns) Obstetrical History - Pregnancies : 6 Para: 3 Term: 3 (2: normal spontaneous vaginal delivery 12-26-07 Female; 4: 02/24/2014 , male, Vaginal delivery, 6lbs 2oz; 5: 02/19/2017,female, normal spontaneous vaginal delivery (), no complications, full term, 6lbs 3oz. ) : 0 Ab's: 2 ( 1: spontaneous ; 3 spontaneous ) Livin Medications and Allergies Meclizine HCl [Bonine] 25 mg PO BID 11/02/17 [History] Metoclopramide [Reglan] 10 mg PO BID 11/02/17 [History] Ondansetron HCl [Zofran] 4 mg PO BID 11/02/17 [History] Pyridoxine HCl [Vitamin B-6] 25 mg PO TID 11/02/17 [History] 3 Allergy/AdvReac Type Severity Reaction Status Date / Time No Known Allergies Allergy Verified 07/11/17 14:32 Review of System OB All systems PM: reviewed and no additional remarkable complaints except as stated Exam - Vital Signs Vital signs: Initial Vital Signs Temp Pulse Resp BP Pulse Ox 98.7 F 63 16 100/68 100 11/02/17 04:28 11/02/17 04:28 11/02/17 04:28 11/02/17 04:28 11/02/17 04:28 - Constitutional Constitutional: well developed, well nourished, average body habitus, mild distress - HEENT HEENT: PERRL, Normocephaly, Mucus Membranes Moist - Neck Neck exam: full ROM - Lungs Respiratory exam: CTAB - Cardiovascular Cardiovascular exam: RRR, +S1, +S2 - Breasts Breast: bilateral: normal - Abdomen Abdomen: Present: bowel sounds normal, gravid, non tender - Extremities Extremities exam: normal inspection, radial pulses palpable and symmetrical - Uterus Uterus exam: Present: normal size, normal contour Results Result Diagrams: 11/02/17 05:22 11/02/17 05:22 Abnormal lab results WBC 11.4 K/mcL (4.3-11.1) H 11/02/17 05:22 RDW 15.8 % (11.5-14.5) H 11/02/17 05:22 Plt Count 431 K/mcL (140-400) H 11/02/17 05:22 Neutrophils # 9.4 K/mcL (1.6-8.9) H 11/02/17 05:22 Potassium 3.4 mEq/L (3.5-5.1) L 11/02/17 05:22 Carbon Dioxide 21 mEq/L (23-29) L 11/02/17 05:22 Creatinine 0.51 mg/dL (0.60-1.20) L 11/02/17 05:22 Glucose 138 mg/dL (70-105) H 11/02/17 05:22 Beta-Hydroxybutyric Acd 1.63 mmol/L (0.02-0.27) H 11/02/17 05:22 Ur Specimen Adequacy See below A 11/02/17 05:40 Urine Clarity Cloudy (Clear) A 11/02/17 05:40 Ur Specific [place] 1.026 (1.010-1.025) H 11/02/17 05:40 Urine Protein 30 mg/dL (Neg-Trace) H 11/02/17 05:40 Urine Ketones >=160 mg/dL (Negative) H 11/02/17 05:40 Ur Squamous Epith Cells Many per lpf (None-Few) H 11/02/17 05:40 All other labs normal. - VTE Reasons for not Prescribing Prophylaxis: Treatment not Indicated - Low risk for VTE
[2017-11-02] MEDS ORDERED: Metoclopramide 10 MG/2 ML VIAL IVP PRN (13:03)
--- NOTE | 2017-11-02 14:20 | Discharge Summary ---
Date of Encounter: 11/02/17 Time of Encounter: 14:18 - Discharge Diagnosis (1) 23 weeks gestation of Priority: Secondary Status: Acute Comments: Follow-up with Dr. Gonzales as scheduled Continue home meds as prescribed Discharge home (2) Nausea and vomiting during Priority: Primary Status: Acute - Discharge Medications Home Medications: Meclizine HCl [Bonine] 25 mg PO BID 11/02/17 [History] Metoclopramide [Reglan] 10 mg PO BID 11/02/17 [History] Ondansetron HCl [Zofran] 4 mg PO BID 11/02/17 [History] Pyridoxine HCl [Vitamin B-6] 25 mg PO TID 11/02/17 [History] Allergies/Adverse Reactions: 3 Allergy/AdvReac Type Severity Reaction Status Date / Time No Known Allergies Allergy Verified 07/11/17 14:32 Date of admission: 11/02/17 08:51 Primary care physician: PCP NONE Discharging clinician: Annalisa Guerin Anticipated date of discharge: 11/02/17 - Patient Status Disposition: Home, Self-Care Condition: Good Functional capacity at discharge: independent ambulation Overall status at discharge: patient is progressing back to baseline - Discharge Instructions Follow Up With: NONE,PCP [Primary Care Provider] - Ha Gonzales MD [Partnered Physician] - Additional Instructions: LABOR AND DELIVERY DISCHARGE INSTRUCTIONS Signs and Symptoms to be Reported to your Doctor Immediately: * Sudden gush, continuous or intermittent lead of fluid from vagina (note the time of gush and color of fluid) * Onset of bright red vaginal bleeding with or without pain (if you had a vaginal exam during this visit you may notice some dark red spotting. This is normal.) * Lower abdominal cramping or backache that is premenstrual-like feeling. * More than 6 contractions in one hour. * Burning during urination, having to urinate more frequently or pain in your mid-back. * A change in the baby's activity. This could be an increase or decrease in activity. * Severe headache which does not go away with tylenol. * Sudden swelling in the face, hands, arms and/or legs. * Upper abdominal pain - sometimes associated with heartburn or nausea and is not relieved by Maalox, Mylanta or Tums. * Dizziness or blurred vision or visual disturbances (seeing stars/lights). * Kick Counts One hour after a meal, lay down on one side in a quiet place. Count the number of claire the baby moves during an hour. If less than 6 movements, notify your physician. Diet: *Force fluids - 8-10 tall glasses of fluid per day. May include popsicles and jello. 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 She stated that she is feeling better and does not feel she needs our services anymore. She also voices discontent with her nothing by mouth diet order. I explained to her that because she was vomiting that we would not be challenging her got right away. We also discussed introducing foods slowly back into her diet. Starting with a BRAT diet. She verbalized understanding and requested to leave. Time Attestation: Total time spent providing and/or coordinating discharge services: Time Spent: Less than 30 minutes Exam - Constitutional Vitals: Temp Pulse Resp BP Pulse Ox 98.7 F 57 14 102/68 97 11/02/17 09:48 11/02/17 09:48 11/02/17 09:48 11/02/17 09:48 11/02/17 09:48 General appearance IM: A&O X 3 - Respiratory Respiratory exam: Present: CTAB - Cardiovascular Cardiovascular exam IM: Present: RRR, +S1, +S2 - GI/Abdominal GI/Abdominal exam IM: normal bowel sounds, no peritoneal signs - Rectal Rectal exam: deferred - Uterine Tone: Firm Uterus Position: Midline - Extremities Exam Extremities exam IM: Present: normal inspection, radial pulses palpable and symmetrical - Neurological Exam Neurological exam: alert, oriented X3 - Psychiatric Additional comments: Patient appears calm - VTE Reasons for not Prescribing Prophylaxis: Treatment not Indicated - Low risk for VTE
== END 2017-11-02 14:20 | disposition home or self-care (01) ==
LOC: 1NENUOBS 04:26 → EMEROO 04:26 → 1NENUOBS 09:01
PROVIDERS: ADMIT Obstetrics & Gynecology; ATTEND Obstetrics & Gynecology

== ENCOUNTER 2018-02-22 05:25 | Inpatient (IN) ==
[~2018-02-22 05:25] MED LIST changes: +Epidural Premix (fent/bupiv) 110 ML EP ONE; +Famotidine 20 MG/2 ML VIAL IVP PRN; +Metoclopramide 10 MG/2 ML VIAL IVP PRN; +Naloxone 0.4 MG/ML INJ IVP PRN; +Ondansetron 4 MG/2 ML VIAL IVP PRN; -Ondansetron ODT 4 MG TAB.RAPDIS SL ONE; -Ringers Solution, Lactated 1,000 ML IVC ONE
[2018-02-22] MEDS ORDERED: Ringers Solution, Lactated 1,000 ML ONE (05:30)
[2018-02-22] MEDS ORDERED: Ringers Solution, Lactated 1,000 ML IVC SCH (05:30)
[2018-02-22] MEDS ORDERED: Lidocaine -MPF 2% 5 ML VIAL ONE (05:30)
[2018-02-22] MEDS ORDERED: Bupivacaine-MPF 0.25% 10 ML VIAL ONE (05:30)
[2018-02-22] MEDS ORDERED: Oxytocin 20 units/ LR 1000 mL 20 UNIT/1,000 ML BAG IVC ONE (05:35)
[2018-02-22 05:42] LABS: Basophils % 0.4 %; Eosinophils # 0.1 K/mcL (0.0-0.6); Eosinophils % 0.5 %; Hemoglobin 11.6 g/dL (11.5-15.4); Immature Granulocytes % 0.5 % (0-4); Lymphocytes # 3.1 K/mcL (0.6-4.6); Lymphocytes % 28.2 %; Mean Corpuscular HGB Conc 32.2 g/dL (31.6-35.5); Mean Corpuscular Hemoglobin 26.5 pg (28.0-33.3); Mean Corpuscular Volume 82.4 fL (83.0-100.0); Mean Platelet Volume 11.7 fL (9.4-12.4); Monocytes # 0.6 K/mcL (0.0-1.3); Monocytes % 5.1 %; Neutrophils # 7.3 K/mcL (1.6-8.9); Platelet Count 333 K/mcL (140-400); Red Blood Count 4.37 M/mcL (3.82-4.97); Red Cell Distribution Width 14.4 % (11.5-14.5); Segmented Neutrophils % 65.3 %
--- NOTE | 2018-02-22 05:48 | OB/GYN History & Physical ---
Date of Encounter: 02/22/18 Time of Encounter: 05:30 Assessment and Plan (1) 39 weeks gestation of Current visit: No Status: Acute Admit for labor. (2) Drug use affecting in third trimester Current visit: No Status: Acute (3) Hepatitis C Current visit: No Status: Acute Qualifiers: Viral hepatitis chronicity: unspecified Hepatic coma status: without hepatic coma Qualified Code(s): B19.20 - Unspecified viral hepatitis C without hepatic coma (4) Narcotic dependence Current visit: No Status: Acute (5) Opioid dependence, uncomplicated Current visit: No Status: Acute (6) Factor V Leiden mutation Current visit: No Status: Chronic History of Present Illness HPI: Ms. Diehl is a 27 year old female presenting at 39w4d by ambulance with c /o contractions. Shortly after arrival she spontaneously ruptured for thick meconium stained fluid. complicated by opiate use, factor 5 liden, tobacco use, and marijuana use. O positive Rubella immune Serologies negative GBS negative Past Med Surg Social Fam HX - Past Medical History Medical history: asthma, other Additional medical history: factor 5 Psychiatric history: bipolar, depression - Past Surgical History Surgical History: cholecystectomy, knee replacement Additional surgical history: right knee surgery - Social History Smoking Status: Current every day smoker Smokeless Tobacco Status: No Alcohol use: none Drug use: opiates, marijuana, IV Drug Use, prescription drug abuse - Family History Mother Hx Family GI Disorders: Yes (crohns) Obstetrical History - Pregnancies : 6 Para: 3 Term: 3 : 0 Ab's: 2 Livin Medications and Allergies Meclizine HCl [Bonine] 25 mg PO BID 11/02/17 [History] Metoclopramide [Reglan] 10 mg PO BID 11/02/17 [History] Ondansetron HCl [Zofran] 4 mg PO BID 11/02/17 [History] Pyridoxine HCl [Vitamin B-6] 25 mg PO TID 11/02/17 [History] 3 Allergy/AdvReac Type Severity Reaction Status Date / Time No Known Allergies Allergy Verified 07/11/17 14:32 Review of System OB All systems PM: reviewed and no additional remarkable complaints except as stated Exam - Constitutional Constitutional: well developed, well nourished, no acute distress - HEENT HEENT: Mucus Membranes Moist - Lungs Respiratory exam: CTAB - Cardiovascular Cardiovascular exam: RRR - Abdomen Abdomen: Present: gravid, non tender - Extremities Extremities exam: normal inspection - Vulva Vulva: bilateral: normal - Cervix Dilation: 6 - Anus/Rectum Anus/Rectum: Present: normal perianal skin Results Result Diagrams: 02/22/18 05:27 All other labs normal.
--- NOTE | 2018-02-22 06:00 | OB/GYN Procedure Note ---
Delivery - Delivery Date: 02/22/18 Provider: Yudi Delvalle Intrapartum events: precipitous labor- <3hr Delivery induction: none Delivery monitor: external FHT, external uterine Anesthesia: none Quantitated Blood Loss: 100 - Infant (s) A Infant Delivery Date: 02/22/18 Delivery Time: 05:37 Presentation: vertex Position: OP Route of delivery: Gender: Female Viability: Viable Pounds: 5 Ounces: 12 Weight Gram: 2.615 kg at 1 minute: 8 at 5 mins: 9 Shoulder Dystocia: not encountered Specimens collected: cord blood Placenta: spontaneous Cord: 3 umbilical vessels - Repair Episiotomy: none Laceration Description: None - Complications Delivery complications: none - Disposition Mom disposition: stable in LDR [place] disposition: stable in LDR - Comments Comments: Pt presented in active labor and progressed rapidly to for viable female weighing 5lbs 12oz with apgars 8 at one minute and 9 at five minutes. After a 60 second delay the cord was clamped and cut and the placenta delivered spontaneous and intact. No lacerations noted. EBL 100ml. Mother and baby stable in DR following procedure.
[2018-02-22 06:23] LABS: Protein/Creatinine Ratio,Urine 0.11 mg/mg (0.00-0.20)
[2018-02-22 06:38] LABS: Alanine Aminotransferase 18 Units/L (7-52); Aspartate Amino Transferase 19 Units/L (13-39); BUN/Creatinine Ratio 19 (6-26); Blood Urea Nitrogen 10 mg/dL (6-20); Lactate Dehydrogenase 163 Units/L (140-271); Uric Acid 4.5 mg/dL (2.3-7.6); eGFR For Non-African Americans > 60 (> 60)
[2018-02-22 06:46] LABS: Amphetamine Screen,Urine Negative ng/mL (Cutoff=1000); Barbiturate Screen,Urine Negative ng/mL (Cutoff=200)
[2018-02-22 06:47] LABS: Benzodiazepines Screen,Urine Negative ng/mL (Cutoff=300); Cannabinoid Screen,Urine Negative ng/mL (Cutoff = 50); Cocaine Screen,Urine Negative ng/mL (Cutoff= 300); Opiate Screen,Urine Negative ng/mL (Cutoff=300); Phencyclidine Screen,Urine Negative ng/mL (Cutoff=25)
[2018-02-22] MEDS ORDERED: Oxytocin 20 units/ LR 1000 mL 20 UNIT/1,000 ML BAG IVC SCH (06:53)
[2018-02-22] MEDS ORDERED: Measles/Mumps/Rubella Vacc 0.5 ML VIAL SQ PRN (06:53)
[2018-02-22] MEDS ORDERED: Acetaminophen 325 MG TABLET PO PRN (06:53)
[2018-02-22] MEDS ORDERED: NIFEdipine 10 MG CAPSULE PO ONE (07:04)
[2018-02-22] MEDS ORDERED: Prenatal Vit/FA 1 EACH TABLET PO SCH (09:00)
[2018-02-22] MEDS ORDERED: Aspirin Enteric Coated 325 MG Tablet PO SCH (09:00)
[2018-02-22] MEDS: Famotidine 20 MG TABLET PO SCH ×2 (11:28→20:35)
[2018-02-22] MEDS: Ibuprofen 600 MG TABLET PO PRN (20:35)
[2018-02-22] MEDS ORDERED: Famotidine 20 MG TABLET PO SCH (21:00)
[2018-02-23 07:51] VITALS: BP 119/79
[2018-02-23] MEDS: Famotidine 20 MG TABLET PO SCH (08:09)
[2018-02-23] MEDS: Ibuprofen 600 MG TABLET PO PRN (08:09)
--- NOTE | 2018-02-23 08:34 | Discharge Summary ---
Date of Encounter: 02/23/18 Time of Encounter: 08:32 - Discharge Diagnosis (1) Hepatitis C Priority: Secondary Status: Acute Qualifiers: Viral hepatitis chronicity: unspecified Hepatic coma status: without hepatic coma Qualified Code(s): B19.20 - Unspecified viral hepatitis C without hepatic coma (2) Vaginal delivery Priority: Primary Status: Acute Comments: Pain well controlled with by mouth pain meds Vital signs stable Ambulating independently Voiding independently Passing flatus, but no BM yet Lochia light Tolerating regular diet Discharge to guest today (3) Factor V Leiden mutation Priority: Secondary Status: Chronic - Discharge Medications Prescriptions: Ibuprofen [Motrin] 600 mg PO Q6HR PRN #30 tablet PRN Reason: Cramping Docusate [Colace] 100 mg PO BID #30 capsule Home Medications: Acetaminophen [Tylenol] 650 mg PO Q6HR PRN tablet 02/23/18 [Rx] Docusate [Colace] 100 mg PO BID #30 capsule 02/23/18 [Rx] Ibuprofen [Motrin] 600 mg PO Q6HR PRN #30 tablet 02/23/18 [Rx] Vit/FA 1 each PO DAILY tablet 02/23/18 [Rx] Allergies/Adverse Reactions: 3 Allergy/AdvReac Type Severity Reaction Status Date / Time No Known Allergies Allergy Verified 07/11/17 14:32 Data Procedures and tests throughout hospitalization: Laboratory Tests 02/22/18 02/22/18 02/22/18 05:27 06:04 06:04 WBC 11.1 RBC 4.37 Hgb 11.6 Hct 36.0 MCV 82.4 L MCH 26.5 L MCHC 32.2 RDW 14.4 Plt Count 333 MPV 11.7 Immature Gran % 0.5 Seg Neutrophils % 65.3 Lymphocytes % 28.2 Monocytes % 5.1 Eosinophils % 0.5 Basophils % 0.4 Neutrophils # 7.3 Lymphocytes # 3.1 Monocytes # 0.6 Eosinophils # 0.1 Basophils # 0.0 BUN 10 Creatinine 0.53 L Est GFR ( Amer) > 60 Est GFR (Non-Af Amer) > 60 BUN/Creatinine Ratio 19 Uric Acid 4.5 AST 19 ALT 18 Lactate Dehydrogenase 163 Urine Creatinine Protein/Creatinin Ratio Urine Total Protein Urine Opiates Screen Negative Ur Barbiturates Screen Negative Ur Phencyclidine Scrn Negative Ur Amphetamines Screen Negative U Benzodiazepines Scrn Negative Urine Cocaine Screen Negative U Marijuana (THC) Screen Negative Ur Drug Screen Interp See Below Hep Bs Antigen 02/22/18 02/22/18 06:04 07:45 WBC RBC Hgb Hct MCV MCH MCHC RDW Plt Count MPV Immature Gran % Seg Neutrophils % Lymphocytes % Monocytes % Eosinophils % Basophils % Neutrophils # Lymphocytes # Monocytes # Eosinophils # Basophils # BUN Creatinine Est GFR ( Amer) Est GFR (Non-Af Amer) BUN/Creatinine Ratio Uric Acid AST ALT Lactate Dehydrogenase Urine Creatinine 65 Protein/Creatinin Ratio 0.11 Urine Total Protein 7 Urine Opiates Screen Ur Barbiturates Screen Ur Phencyclidine Scrn Ur Amphetamines Screen U Benzodiazepines Scrn Urine Cocaine Screen U Marijuana (THC) Screen Ur Drug Screen Interp Hep Bs Antigen Nonreactive Labs on day of discharge: Labs from last 24 hours 02/22/18 07:45 Hep Bs Antigen Nonreactive Date of admission: 02/22/18 05:25 Primary care physician: PCP NONE Consults: 02/22/18 06:53 Consult to Body Stylist [CONS] Routine Reason for SW Consult: drug use Discharging clinician: Annalisa Guerin Anticipated date of discharge: 02/23/18 - Patient Status Disposition: Home, Self-Care Condition: Good Functional capacity at discharge: independent ambulation Overall status at discharge: patient is progressing back to baseline - Discharge Instructions Follow Up With: NONE,PCP [Primary Care Provider] - Ha Gonzales MD [Partnered Physician] - - Diet and Activity Activity: increase activity as tolerated Diet: regular diet Hospital Course Reason for admission: active labor, IUP at term Delivery: Episiotomy: none Laceration: none Other procedures: none complications: none Discharge diagnosis: IUP at term delivered [place] baby: female Hospital course: Ms. Diehl presented to L&D in active labor and delivered a viable female precipitously. Her course was complicated by intermittent hypertension for which she was given a single dose of 10mg procardia. Hypertension has since resolved. She verbalized readiness to discharge today. Time Attestation: Total time spent providing and/or coordinating discharge services: Time Spent: Less than 30 minutes Exam - Constitutional Vitals: Temp Pulse Resp BP Pulse Ox 97.9 F 69 16 119/79 97 02/23/18 07:49 02/23/18 07:49 02/23/18 08:12 02/23/18 07:49 02/23/18 07:49 General appearance IM: A&O X 3 - Respiratory Respiratory exam: Present: CTAB - Cardiovascular Cardiovascular exam IM: Present: RRR, +S1, +S2 - GI/Abdominal GI/Abdominal exam IM: normal bowel sounds, no peritoneal signs - Rectal Rectal exam: deferred - Uterine Tone: Firm Uterus Position: 2 Fingers Below Umbilicus, Midline - Extremities Exam Extremities exam IM: Present: normal capillary refill, normal inspection, radial pulses palpable and symmetrical - Neurological Exam Neurological exam: alert, CN II-XII intact, normal gait, oriented X3, reflexes normal, no focal deficits, strengths equal and symetr throughout - Psychiatric Additional comments: Pt reports history of PPD. We discussed s/sx of PPD and she verbalizes understanding of when to call.
== END 2018-02-23 11:00 | disposition home or self-care (01) | DRG 560 ==
LOC: 1NENULAB → 1NENUOBS 08:15
PROVIDERS: ADMIT Registered Nurse; ATTEND Registered Nurse